=== PATIENT | male | born 1950 | race African-American/Black ===

== ENCOUNTER 2016-06-04 05:32 | Inpatient (IN) ==
[2016-05-16 14:00] LABS: Basophils % 0.4 % (0.0-0.8); Eosinophils # 0.2 10*3/uL (0.0-0.87); Hematocrit 42.5 VOL% (42.0-52.0); Hemoglobin 13.5 GM/DL (14.0-18.0); Immature Granulocytes % 0.1 %; Immature Granulocytes Absolute 0.01 #; Lymphocytes % 36.6 % (21.2-54.2); Mean Corpuscular HGB Conc 31.8 GM/DL (32-36); Mean Corpuscular Hemoglobin 27 PG (27-34); Mean Corpuscular Volume 85.7 FL (87-102); Mean Platelet Volume 11.2 FL (9.6-12.0); Monocytes # 0.8 10*3/uL (0.11-0.8); Monocytes % 9.7 % (1.7-12.7); Neutrophils # 4.2 10*3/uL (1.4-7.4); Neutrophils % 51.2 % (38.7-73.9); Platelet Count 162 T/CUMM (130-400); Red Blood Count 4.96 MC/CUMM (3.8-5.5); White Blood Count 8.2 T/CUMM (4-12)
[2016-05-16 14:05] LABS: Apearance,Urine CLEAR (Clear); Bilirubin,Urine Negative (Negative); Blood, Urine Negative (Negative); Glucose,Urine (UA) Negative (Negative); Ketones,Urine Negative (Negative); Nitrite,Urine Negative (Negative); Protein,Urine 100 MG/DL; RBC,Urine <1 /HPF (0-4); Urine Color Colorless (Yellow); Urine Specific Gravity 1.005 (1.001-1.035); Urine Urobilinogen < 2.0 EU/DL (0.2-1.0); WBC,Urine 1 /HPF (0-6)
[2016-05-16 14:11] LABS: INR 1.1; PT Patient Result 11.6 SECS; Partial Thromboplastin Time 25.2 SECS (0-40)
--- NOTE | 2016-05-16 14:18 | XRay Report ---
XR chest 2V Indication: Preop respiratory evaluation. Comparison: None. Technique: PA and lateral chest x-ray was performed. Findings: The heart size is within normal limits. AICD is stable. The mediastinal contour demonstrates no significant abnormality. The lungs are clear. Bones and soft tissues demonstrate no acute abnormality. Impression: 1. No active cardiopulmonary disease. 05/16/2016 2:16 PM PROCEDURE INTERPRETED AT [facility] DEPARTMENT OF RADIOLOGY Final Report Signed by: Dr. Flaquito Hebert
[2016-05-16 14:27] LABS: Albumin 3.6 G/DL (3.4-5.0); Bilirubin,Total 0.4 MG/DL (0.2-1.0); Calcium 9.5 MG/DL (8.5-10.1); Osmolality,Calculated 301.4 MOS/KG (273-304); Potassium 4.2 MMOL/L (3.5-5.1); Total Protein 6.4 G/DL (6.4-8.3)
[2016-06-04] MEDS ORDERED: VANCOMYCIN INJ 1,000 MG in SODIUM CHLORIDE 0.9% 250 ML IV ONE (06:00)
[2016-06-04] MEDS ORDERED: TRANEXAMIC ACID 1,000 MG/10 ML VIAL IV ONE (06:47)
--- NOTE | 2016-06-04 07:07 | History and Physical Update ---
History and Physical Update - History and Physical H&P was reviewed, the patient examined and there: are no changes in the patients condition since last H&P was completed.
[2016-06-04] MEDS ORDERED: DIAZEPAM 5 MG TABLET PO ONE (07:59)
[2016-06-04] MEDS ORDERED: FAMOTIDINE 20 MG TABLET PO ONE (08:00)
[2016-06-04] MEDS ORDERED: ceFAZolin 1,000 MG VIAL ONE (08:09)
[2016-06-04] MEDS ORDERED: VANCOMYCIN 1,000 MG VIAL ONE (08:09)
[2016-06-04] MEDS ORDERED: DIAZEPAM 5 MG TABLET ONE (08:10)
[2016-06-04] MEDS ORDERED: FAMOTIDINE 20 MG TABLET ONE (08:10)
[2016-06-04] MEDS ORDERED: SODIUM CHLORIDE 0.9% 100 ML IV ONE ×2 (08:10→13:15)
[2016-06-04] MEDS: LACTATED RINGERS 1,000 ML IV SCH (08:20)
[2016-06-04] MEDS ORDERED: PROPOFOL 200 MG/20 ML VIAL IV ONE (09:19)
[2016-06-04] MEDS ORDERED: LIDOCAINE 2% 5 ML VIAL ONE (09:19)
[2016-06-04] MEDS ORDERED: LABETALOL 100 MG/20 ML VIAL IV ONE (09:19)
[2016-06-04] MEDS ORDERED: hydrALAZINE 20 MG/1 ML VIAL ONE (09:19)
[2016-06-04] MEDS ORDERED: HYDROmorphone 2 MG/1 ML VIAL IV PRN (09:20)
[2016-06-04] MEDS ORDERED: LACTULOSE 20 GM/30 ML UDCUP PO PRN (09:20)
[2016-06-04] MEDS ORDERED: diphenhydrAMINE CAP 25 MG CAPSULE PO PRN (09:20)
[2016-06-04] MEDS ORDERED: TEMAZEPAM 7.5 MG CAPSULE PO PRN (09:20)
[2016-06-04] MEDS ORDERED: PROMETHAZINE 25 MG/1 ML VIAL IM PRN (09:20)
[2016-06-04] MEDS ORDERED: BISACODYL 10 MG SUPP RECTAL PRN (09:20)
[2016-06-04] MEDS ORDERED: MAGNESIUM HYDROXIDE SUSP 30 ML UDCUP PO PRN (09:20)
[2016-06-04] MEDS ORDERED: hydrALAZINE 25 MG TABLET PO PRN (09:23)
[2016-06-04] MEDS ORDERED: ROPIVACAINE 0.5% 30 ML VIAL ONE (09:46)
--- NOTE | 2016-06-04 12:36 | XRay Report ---
XR knee 2V LT Indication: Left TKA. Left knee 2 views: Straight leg splint, surgical drains, skin paresh and TKA hardware are present. Alignment is normal. No periprosthetic fracture. Impression: Normal alignment following TKA. PROCEDURE INTERPRETED AT [facility] DEPARTMENT OF RADIOLOGY Final Report Signed by: Fredy Olivera M.D.
[2016-06-04] MEDS ORDERED: KETAMINE 500 MG/10 ML VIAL ONE (13:13)
[2016-06-04] MEDS ORDERED: MIDAZOLAM 2 MG/2 ML VIAL ONE (13:13)
[2016-06-04] MEDS: HYDROmorphone PCA 30 MG/30 ML SYRINGE IV SCH (13:23)
--- NOTE | 2016-06-04 13:54 | Cardiology Consult Note ---
I, Luciana Chaves RN, am scribing for, and in the presence of, Jamal Wheeler MD 13:53. Assessment and Plan - Time spent with patient Time spent with patient: Greater than 30 minutes (due to assessment, planning, documentation, and medication review) (1) Hypertension Status: Chronic Current Visit: Yes (2) NICM (nonischemic cardiomyopathy) Status: Chronic Current Visit: Yes (3) CHF (congestive heart failure) Status: Chronic Current Visit: Yes (4) CRI (chronic renal insufficiency) Status: Chronic Current Visit: Yes (5) Dyslipidemia Status: Chronic Current Visit: Yes History of Present Illness - Data of Consult Patient: known to practice within the last 3 years Consult date: 06/04/16 Requesting Physician: Yg Fairchild Jr. - Consult Narrative Reason for consult: follow postop History of present illness: Mr. Arevalo is a 66 year old male who is routinely followed by Dr. Muñoz with a history of hypertension, nonischemic cardiomyopathy, congestive heart failure, chronic renal insufficiency, and dyslipidemia. His most recent heart cath was in January 2012 that showed mild nonobstructive coronary artery disease and severe cardiomyopathy which appeared to be nonischemic. He had a single- chamber ICD placed in January 2012. In June 2014 he had a stress test that was clinically and electrically negative. Other surgical history includes left knee scope, kidney biopsy, and thyroid surgery. Family history includes father with prostate problems and mother with hypertension. He reports that he does not smoke, but that he quit about 4 years ago. Patient was admitted today for left knee replacement with Dr. Gurinder Brandt. Dr. Muñoz saw Mr. Arevalo preoperatively on May 16 of this year was felt to be a low risk for the planned surgery. We are seeing the patient postoperatively. He denies any chest pain, shortness of breath, palpitations, or dizziness. His systolic blood pressures have been in the 90s today. His home medications have been restarted. I have discussed in detail the particulars of this case and I have examined the patient and reviewed the patient's chart both current and old. I was directly involved in the patient's evaluation and management and I completely agree with Luciana Chaves RN regarding this patient's evaluation and treatment plan. This patient is stable postoperatively we will follow serial EKGs. Continue management as you plan. CC: Yg Green, Jr., MD - Home Medications and Allergies Home Medications: Home Medications Medication Instructions Recorded Confirmed Type Ascorbic Acid [Vitamin C] 500 mg PO DAILY 05/16/16 06/04/16 History Aspirin [Ecotrin] 81 mg PO DAILY 05/16/16 06/04/16 History Carvedilol [Coreg] 25 mg PO BID 05/16/16 06/04/16 History Furosemide Tab [Lasix Tab] 40 mg PO DAILY 05/16/16 06/04/16 History Losartan [Cozaar] 100 mg PO DAILY 05/16/16 06/04/16 History Magnesium Chloride [Slow Mag] 64 mg PO DAILY 05/16/16 06/04/16 History Multivit-Min/FA/Lycopene/Lut 1 tablet PO DAILY 05/16/16 06/04/16 History [Centrum Silver Ultra Men's Tab] NIFEdipine XL TAB [Procardia Xl] 30 mg PO BEDTIME 05/16/16 06/04/16 History Simvastatin [Zocor] 20 mg PO BEDTIME 05/16/16 06/04/16 History Tamsulosin [Flomax] 0.4 mg PO DAILY 05/16/16 06/04/16 History hydrALAZINE TAB [Apresoline Tab] 25 mg PO BID PRN 05/16/16 05/16/16 History Allergies/Adverse Reactions: Allergies Allergy/AdvReac Type Severity Reaction Status Date / Time No Known Allergies Allergy Verified 05/16/16 13:06 - Constitutional Constitutional: Present: as per HPI - EENT Eyes: Present: blurry vision, requires corrective lense Ears: Absent: decreased hearing, tinnitus Nose, mouth and throat: Absent: epistaxis, headache(s), neck pain - Cardiovascular Cardiovascular: Absent: chest pain at rest, chest pain with activity, diaphoresis, dyspnea, dyspnea on exertion, edema, radiating jaw, neck or arm pain, lightheadedness, orthopnea, palpitations - Respiratory Respiratory: Present: cough. Absent: dyspnea, hemoptysis, dyspnea on exertion, wheezing - Gastrointestinal Gastrointestinal: Present: diarrhea. Absent: abdominal pain, constipation, hematemesis, hematochezia, melena, nausea, vomiting - Genitourinary Genitourinary: Absent: dysuria, hematuria - Musculoskeletal Musculoskeletal: Present: limited range of motion, muscle weakness - Neurological Neurological: Present: abnormal gait, frequent falls. Absent: abnormal speech, confusion, dizziness, headache(s), syncope - Psychiatric Psychiatric: Absent: anxiety, confusion, depression - Hematologic/Lymphatic Hematologic/Lymphatic: Absent: easy bleeding, easy bruising Medical,Surgical,& Family Hx - Medical History Cardio: History of: CHF, Hypertension (medication), Pacemaker (january 2012, single chamber ICD) Renal: History of: Renal Problems (kidney biopsy 12 years ago) - Surgical History Cardiac Surgeries: Sugical HX of: Cardiac Catheterization (2009 and 2011), Internal Defibrillator (01/15/12) HEENT Surgeries: Surgical HX of: Thyroid Surgery (right) Orthopedic Surgeries: Surgical HX of;: Total Knee Replacement (left 05/23) - Family History Family History: Reports;: Family Hypertension (mother), Additional Family History (father with prostate problems) - Social History Smoking Status: Former smoker (states he quit 4 years ago) Frequency of Alcohol Use: None Type of Drug Use: None Functional capacity: uses cane/walker Physical Examination Vital Signs Temp Pulse Resp BP Pulse Ox 97.8 F 50 L 16 177/104 99 06/04/16 07:43 06/04/16 07:43 06/04/16 07:43 06/04/16 07:43 06/04/16 07:43 General: Present: Appears Well, No Apparent Distress HEENT: Present: PERRL, Mucus Membranes Moist Neck: Present: Supple Neck, Midline Trachea, No JVD/HJR, No Bruit Cardiac: Present: Reg Rate and Rhythm, No Murmur Lungs: Present: Normal Breath Sounds, No Wheeze, Rales, Rhonchi. Absent: Oxygen Neuro: Absent: Essential Tremor Abdomen: Present: Soft, Active Bowel Sounds, Non-Tender. Absent: Distended Skin: Present: Clear Musculoskeletal: Present: Decreased Range of Motion, Pain in Joint Gait: Present: Poor Gait Extremities: Present: No Edema, Normal Upper Extr. Pulses, Normal Lower Extr. Pulses. Absent: Normal Gait Result/EKG - Labs CBC & BMP: 05/16/16 13:48 05/16/16 13:47 Labs: Laboratory Results - last 24 hr 06/04/16 06:15 Blood Type O POSITIVE Antibody Screen Negative Liam Sanchez Wesley, MD, personally performed the services described in this documentation, ascribed by Luciana Chaves RN in my presence, and it is both accurate and complete [id number] .
[2016-06-04] MEDS: ONDANSETRON 4 MG/2 ML VIAL IV PRN (15:55)
--- NOTE | 2016-06-04 16:36 | Operative Note ---
DATE: 06/04/2016 PREOPERATIVE DIAGNOSIS: Osteoarthritis, left knee. POSTOPERATIVE DIAGNOSIS: Osteoarthritis, left knee. OPERATIVE PROCEDURE: Total knee replacement, left ([place]) SURGEON: Yg Fairchild Jr., MD RAIL WASHER: Dr. Soto. ANESTHESIA: Spinal. INDICATIONS: A 66-year-old white male with longstanding and severe osteoarthritis to his left knee, he experiences for numbers of years. He has had numerous aspirations and injections. He is no burton tyler able to ambulate without severe pain and prompting his recent evaluation and decision to proceed with elective total knee. OPERATIVE PROCEDURE: The patient taken to the operating room and under spinal anesthetic positioned in the supine position, the left leg was positioned, prepped and draped in the usual sterile manner . He received Ancef and Vancomycin preoperatively. The limb was elevated, exsanguinated, and tourn iquet inflated to 300 mmHg. A midline incision made over the anterior aspect of the left knee, sharp ly dissected and carried down to the skin and subcutaneous tissue. A medial peripatellar arthrotomy was performed of the knee, revealing a very large effusion with large osteophytes spur complexes th roughout. He had a severe vagus deformity as well with lot of erosion to the lateral plateau. Intr amedullary alignment guide was used to make appropriate cuts about the distal femur and proximal tib ia. The femur sized to a 9 femur to a 7 because of the deformity of PS component was chosen of 7 mm in size. The patellar resurfaced with a 38-button. After removal of the trial components, the prim ag implants were cemented into place and it was irrigated and closed in standard fashion over two 1 /8 inch Hemovac drains, using a #1 Vicryl for the arthrotomy, 2-0 Vicryl for the subcutaneous layer, and paresh for skin. Tourniquet was deflated during wound closure at 54 minutes. He was transpor apolinar to the Recovery Room in stable condition. ESTIMATED BLOOD LOSS: Minimal. DRAINS: None. COUNTS: Correct.
[2016-06-04] MEDS: ceFAZolin 2,000 MG in PREMIX 1 EACH IV SCH (17:04)
--- NOTE | 2016-06-04 17:07 | Orthopedic Progress Note ---
Orthopedics - Subjective Interval history: Comfortable neurovascular intact discussed up in the Exam - Constitutional Vitals: Period Temp Pulse Resp BP Sys/Reyes Pulse Ox Last 24 Hr 97.2 F-97.8 F 50-142 16-22 122-177/81-104 94-100 Results - Labs CBC & BMP: 05/16/16 13:48 05/16/16 13:47
[2016-06-04] MEDS: CARVEDILOL 25 MG TABLET PO SCH (21:44)
[2016-06-04] MEDS: SIMVASTATIN 20 MG TABLET PO SCH (21:44)
[2016-06-04] MEDS: DOCUSATE SODIUM 100 MG CAPSULE PO SCH (21:44)
[2016-06-04] MEDS: FONDAPARINUX 2.5 MG/0.5 ML SYRINGE SUBCUT SCH (21:44)
[2016-06-05] MEDS: ceFAZolin 2,000 MG in PREMIX 1 EACH IV SCH (02:00)
[2016-06-05 05:27] LABS: Basophils % 0.2 % (0.0-0.8); Eosinophils # 0.2 10*3/uL (0.0-0.87); Eosinophils % 1.6 % (0.00-10.9); Hematocrit 32.9 VOL% (42.0-52.0); Hemoglobin 10.7 GM/DL (14.0-18.0); Immature Granulocytes % 0.4 %; Immature Granulocytes Absolute 0.04 #; Lymphocytes # 1.6 10*3/uL (1.4-4.0); Lymphocytes % 16.8 % (21.2-54.2); Mean Corpuscular HGB Conc 32.5 GM/DL (32-36); Mean Corpuscular Hemoglobin 28 PG (27-34); Mean Platelet Volume 11.2 FL (9.6-12.0); Monocytes # 0.8 10*3/uL (0.11-0.8); Monocytes % 9.1 % (1.7-12.7); Neutrophils # 6.7 10*3/uL (1.4-7.4); Neutrophils % 71.9 % (38.7-73.9); Red Blood Count 3.87 MC/CUMM (3.8-5.5); White Blood Count 9.3 T/CUMM (4-12)
[2016-06-05 05:34] LABS: Platelet Count 96 T/CUMM (130-400)
[2016-06-05 05:48] LABS: Hypochromasia 1+; Ovalocytes Slight; Platelet Estimate Decreased
[2016-06-05 06:04] LABS: Calcium 8.3 MG/DL (8.5-10.1); Potassium 4.5 MMOL/L (3.5-5.1)
--- NOTE | 2016-06-05 07:20 | EKG Report ---
Stationary ECG Study [facility] Test Date: 06/05/2016 7:18:51 AM Pat Name: MOHINI GLASS Department: Room: 315 Gender: M Rn Behavioral Health: KAUSHIK : 1950 Requested by: Gagan Wheeler Order Number: [id number] Zulay MD: GAGAN WHEELER Intervals [place] Rate: 84 P: 55 MA: 231 QRS: -32 QRSD: 105 T: 61 QT: 361 QTc: 402 Interpretive Statements SINUS RHYTHM WITH PROLONGED MA INTERVAL MARKED LEFT AXIS DEVIATION NON-SPECIFIC ST-T ABNORMALITIES Electronically Signed On 06-05-16 10:42:39 CDT by GAGAN WHEELER [email or web address]
--- NOTE | 2016-06-05 08:44 | Orthopedic Progress Note ---
Orthopedics - Subjective Interval history: Comfortable H&H stable neurovascular intact drain removed will start PT possibly home with home health this weekend will also explore rehab options Exam - Constitutional Vitals: Period Temp Pulse Resp BP Sys/Reyes Pulse Ox Last 24 Hr 96.8 F-99.3 F 54-142 16-22 122-179/77-103 92-100 Results - Labs CBC & BMP: 06/05/16 04:55 06/05/16 04:55
[2016-06-05] MEDS: ASCORBIC ACID 500 MG TABLET PO SCH (09:18)
[2016-06-05] MEDS: ASPIRIN EC 81 MG TABLET PO SCH (09:18)
[2016-06-05] MEDS: DOCUSATE SODIUM 100 MG CAPSULE PO SCH ×2 (09:18→21:34)
[2016-06-05] MEDS: CARVEDILOL 25 MG TABLET PO SCH ×2 (09:18→21:34)
[2016-06-05] MEDS: MAGNESIUM CHLORIDE 64 MG TABLET PO SCH (09:18)
[2016-06-05] MEDS: MULTIVITAMIN (CENTRUM) TABLET PO SCH (09:18)
[2016-06-05] MEDS: LOSARTAN 50 MG TABLET PO SCH (09:18)
[2016-06-05] MEDS: TAMSULOSIN 0.4 MG CAPSULE PO SCH (09:18)
[2016-06-05] MEDS: FUROSEMIDE 40 MG TABLET PO SCH (09:19)
[2016-06-05] MEDS: LACTATED RINGERS 1,000 ML IV SCH (09:31)
[2016-06-05] MEDS: HYDROmorphone PCA 30 MG/30 ML SYRINGE IV SCH (09:40)
[2016-06-05] MEDS: ONDANSETRON 4 MG/2 ML VIAL IV PRN (10:42)
--- NOTE | 2016-06-05 11:20 | Pathology Report from [facility] ---
ACCESSION # : [id number] PATIENT NAME : Mohini Arevalo ORDERING DR : MOHINI WHITESIDE JR, MD CLINICAL HX: LT knee osteoarthritis POST-OP DX: Same SPECIMEN INFO: Lt knee bone & tissue GROSS DESCRIPTION: The specimen is received in formalin labeled with the patient 's name and consists of multiple fragments of bone, cartilage and adipose tissue collectively measuring 17.9 x 20.2 cm. The articular surfaces are focally degenerative with cartilage lipping and osteophyte formation. An area of bony eburnation is present measuring up to 4.0 cm. A few chalky white areas are noted. Representaive sectoins submitted in one cassette following decalcifiatoin. DIAGNOSIS FOR MOHINI AREVALO: LEFT KNEE BONE AND TISSUE, TOTAL REPLACEMENT: Osteoarthritis. SERVICE DATE: 06/04/2016 REPORT DATE: 06/05/2016 PATHOLOGIST: Morgan Aquino M.D. [facility]
--- NOTE | 2016-06-05 14:26 | Cardiology Progress Note ---
Andie Sanchez April RN, am scribing for, and in the presence of, Jamal Wheeler MD 14:25. Assessment and Plan (1) Hypertension Status: Chronic Current Visit: Yes (2) NICM (nonischemic cardiomyopathy) Status: Chronic Current Visit: Yes (3) CHF (congestive heart failure) Status: Chronic Current Visit: Yes (4) CRI (chronic renal insufficiency) Status: Chronic Current Visit: Yes (5) Dyslipidemia Status: Chronic Current Visit: Yes Cardiology - PN: Subj Interval history: Mr. Arevalo is seen resting in bed in no acute distress. He is day 1 postop left total knee, dressing left knee dry and intact. He reports he had a good night, but this morning his knee is starting to bother him a little bit. He denies chest pain, shortness of breath, palpitations, or dizziness. His blood pressures continue to be elevated, pressure this morning was 149/89. EKG this morning with sinus rhythm with heart rate of 84. Patient is stable and doing well postoperatively. He is receiving physical therapy without problems. He denies anginal chest pain and is overall stable. His EKG shows no acute change and we are going to continue recovery as outlined. My disclaimer Exam (Progress Note) - Constitutional Vitals: Period Temp Pulse Resp BP Sys/Reyes Pulse Ox Last 24 Hr 96.8 F-99.3 F 54-142 16-22 122-179/77-103 92-100 General appearance: normal weight, no acute distress - Head Head exam: Absent: abrasion, hematoma - Eye Eye exam: Absent: periorbital swelling, laceration to eyelids - Neck Neck exam: Absent: tenderness - Respiratory Respiratory exam: Present: clear to auscultation bilaterally. Absent: accessory muscle use, chest wall tenderness - Cardiovascular Cardiovascular exam: Present: regular rate and rhythm - GI/Abdominal GI/Abdominal exam: Present: normal bowel sounds, soft. Absent: distended, tenderness - Extremities Exam Extremities exam: Present: edema (Trace noted to left lower extremity), other ( Dressing noted to left knee) - Neurological Exam Neurological exam: Present: alert, oriented X3 - Psychiatric Psychiatric exam: Present: normal affect, normal mood - Skin Skin exam: Present: warm, dry Result/EKG - Labs CBC & BMP: 06/05/16 04:55 06/05/16 04:55 Lab Results: I have reviewed the past 24 hour labs Labs: Laboratory Results - last 24 hr 06/05/16 06/05/16 04:55 04:55 WBC 9.3 RBC 3.87 Hgb 10.7 L Hct 32.9 L MCV 85.0 L MCH 28 MCHC 32.5 RDW 14.0 Plt Count 96 L MPV 11.2 Neut % (Auto) 71.9 Lymph % (Auto) 16.8 L Boundary % (Auto) 9.1 Eos % (Auto) 1.6 Baso % (Auto) 0.2 Neut # (Auto) 6.7 Lymph # (Auto) 1.6 Boundary # (Auto) 0.8 Eos # (Auto) 0.2 Baso # (Auto) 0.0 Immature Gran % 0.4 Nucleated RBC % 0.0 Immature Gran # 0.04 Nucleated RBCs # 0.00 Platelet Estimate Decreased Hypochromasia 1+ Ovalocytes Slight Morphology Comment Sodium 143 Potassium 4.5 Chloride 112 H Carbon Dioxide 23 Anion Gap 12.5 BUN 33 H Creatinine 2.90 H GFR Calculation 32 BUN/Creatinine Ratio 11.00 Glucose 106 Calculated Osmolality 291.0 Calcium 8.3 L - EKG EKG results: interpreted by me EKG shows: sinus rhythm I, Jamal Wheeler MD, personally performed the services described in this documentation, ascribed by Luciana Chaves RN in my presence, and it is both accurate and complete 425 .
[2016-06-05] MEDS: FONDAPARINUX 2.5 MG/0.5 ML SYRINGE SUBCUT SCH (21:34)
[2016-06-05] MEDS: SIMVASTATIN 20 MG TABLET PO SCH (21:34)
[2016-06-06 06:24] LABS: Basophils % 0.1 % (0.0-0.8); Eosinophils # 0.2 10*3/uL (0.0-0.87); Eosinophils % 1.6 % (0.00-10.9); Hematocrit 31.1 VOL% (42.0-52.0); Hemoglobin 9.7 GM/DL (14.0-18.0); Immature Granulocytes % 0.6 %; Immature Granulocytes Absolute 0.06 #; Lymphocytes # 1.9 10*3/uL (1.4-4.0); Lymphocytes % 18.4 % (21.2-54.2); Mean Corpuscular HGB Conc 31.2 GM/DL (32-36); Mean Corpuscular Hemoglobin 27 PG (27-34); Mean Corpuscular Volume 87.9 FL (87-102); Mean Platelet Volume 10.8 FL (9.6-12.0); Monocytes # 1.2 10*3/uL (0.11-0.8); Monocytes % 11.6 % (1.7-12.7); Neutrophils % 67.7 % (38.7-73.9); Red Blood Count 3.54 MC/CUMM (3.8-5.5); White Blood Count 10.3 T/CUMM (4-12)
[2016-06-06 06:29] LABS: Platelet Count 81 T/CUMM (130-400)
[2016-06-06 06:55] LABS: Burr Cells Slight; Elliptocytes Few; Eosinophils 2 % (0-10); Hypochromasia 1+; Lymphocytes 21 % (20-55); Platelet Estimate Decreased; Segmented Neutrophils 72 % (50-85); Total Cells Counted 100
--- NOTE | 2016-06-06 08:45 | Cardiology Progress Note ---
I, Luciana Chaves RN, am scribing for, and in the presence of, Jamal Wheeler MD 08:45. Assessment and Plan (1) Hypertension Status: Chronic Current Visit: Yes (2) NICM (nonischemic cardiomyopathy) Status: Chronic Current Visit: Yes (3) CHF (congestive heart failure) Status: Chronic Current Visit: Yes (4) CRI (chronic renal insufficiency) Status: Chronic Current Visit: Yes (5) Dyslipidemia Status: Chronic Current Visit: Yes Cardiology - PN: Subj Interval history: Mr. Arevalo is seen resting in bed in no acute distress. He is day 2 postop left total knee. Dressing noted to left knee, he is complaining of some left knee discomfort. He denies any chest pain, shortness of breath, palpitations, or dizziness. He did have a temp of 101.5 during the night, blood pressures 150/ 80. I have discussed in detail the particulars of this case and I have examined the patient and reviewed the patient's chart both current and old. I was directly involved in the patient's evaluation and management and I completely agree with Luciana Chaves RN regarding this patient's evaluation and treatment plan. Exam (Progress Note) - Constitutional Vitals: Period Temp Pulse Resp BP Sys/Reyes Pulse Ox Last 24 Hr 99.1 F-101.5 F 75-98 18-20 140-160/66-83 90-99 General appearance: no acute distress - Head Head exam: Absent: abrasion, hematoma - Eye Eye exam: Absent: periorbital swelling, laceration to eyelids - Respiratory Respiratory exam: Present: clear to auscultation bilaterally. Absent: accessory muscle use, chest wall tenderness - Cardiovascular Cardiovascular exam: Present: regular rate and rhythm - GI/Abdominal GI/Abdominal exam: Present: normal bowel sounds, soft. Absent: distended, tenderness - Extremities Exam Extremities exam: Present: other (Dressing noted to left knee). Absent: edema - Neurological Exam Neurological exam: Present: alert, oriented X3 - Psychiatric Psychiatric exam: Present: normal affect, normal mood - Skin Skin exam: Present: warm, dry Result/EKG - Labs CBC & BMP: 06/06/16 06:10 06/05/16 04:55 Lab Results: I have reviewed the past 24 hour labs Labs: Laboratory Results - last 24 hr 06/06/16 06:10 WBC 10.3 RBC 3.54 L Hgb 9.7 L Hct 31.1 L MCV 87.9 MCH 27 MCHC 31.2 L RDW 14.0 Plt Count 81 L MPV 10.8 Neut % (Auto) 67.7 Lymph % (Auto) 18.4 L Rush % (Auto) 11.6 Eos % (Auto) 1.6 Baso % (Auto) 0.1 Neut # (Auto) 7.0 Lymph # (Auto) 1.9 Rush # (Auto) 1.2 H Eos # (Auto) 0.2 Baso # (Auto) 0.0 Total Counted 100 Immature Gran % 0.6 Nucleated RBC % 0.0 Immature Gran # 0.06 Segmented Neutrophils 72 Lymphocytes 21 Monocytes 5 Eosinophils 2 Nucleated RBCs # 0.00 Platelet Estimate Decreased Hypochromasia 1+ Bernarda Cells Slight Elliptocytes Few Morphology Comment Liam Sanchez Wesley, MD, personally performed the services described in this documentation, ascribed by Luciana Chaves RN in my presence, and it is both accurate and complete 845 .
--- NOTE | 2016-06-06 08:58 | Physician Query Form ---
CLICK EDIT DOCUMENT TO SELECT QUERY ANSWER --> OK --> SIGN Monica Hebert RN, CCDS Certified Clinical Civil Preparedness Coordinator W) [phone] (f) [phone] [email or web address] PROVIDERS: Make your selection(s) from the choices in EACH section by typing an "x" and enter comments in the comment section. Please use your independent medical judgment in providing your response. This request does not imply that any particular answer is desired or expected. CLINICAL INDICATORS: (Providers should not edit this section) The medical record indicates that the patient was admitted for a knee replacement, history of "chronic renal insufficiency", creatinine of 2.90 on 30th and GFR of 32# on the 30th. As the attending MD can you please clarify the stage of the CKD? Clarify which of the following most accurately represents the patient's renal status: Chronic Kidney Disease Stages Source: National Kidney Disease Foundation ( ) Stage I (eGFR > or = 90) ( ) Stage II (eGFR 60 - 89) ( ) Stage III (eGFR 30 - 59) ( ) Stage IV (eGFR 15 - 29) ( ) Stage V (eGFR < 15 or dialysis) COMMENTS: Use of terms such as suspected, likely, or probable (associated with a specific diagnosis that is being evaluated, monitored, or treated as if it exists) are acceptable and can be restated in the discharge summary if not ruled out. MTDD
[2016-06-06] MEDS: DOCUSATE SODIUM 100 MG CAPSULE PO SCH ×2 (09:35→20:40)
[2016-06-06] MEDS: LOSARTAN 50 MG TABLET PO SCH (09:35)
[2016-06-06] MEDS: TAMSULOSIN 0.4 MG CAPSULE PO SCH (09:35)
[2016-06-06] MEDS: ASCORBIC ACID 500 MG TABLET PO SCH (09:35)
[2016-06-06] MEDS: MULTIVITAMIN (CENTRUM) TABLET PO SCH (09:35)
[2016-06-06] MEDS: MAGNESIUM CHLORIDE 64 MG TABLET PO SCH (09:35)
[2016-06-06] MEDS: ASPIRIN EC 81 MG TABLET PO SCH (09:35)
[2016-06-06] MEDS: FUROSEMIDE 40 MG TABLET PO SCH (09:36)
[2016-06-06] MEDS: CARVEDILOL 25 MG TABLET PO SCH ×2 (09:36→20:40)
--- NOTE | 2016-06-06 09:55 | Orthopedic Progress Note ---
Orthopedics - Subjective Interval history: H&H stable comfortable wound is dry discussed continue with PT home with home health most likely by Thursday Exam - Constitutional Vitals: Period Temp Pulse Resp BP Sys/Reyes Pulse Ox Last 24 Hr 97.4 F-101.5 F 75-103 18-20 119-160/66-83 90-99 Results - Labs CBC & BMP: 06/06/16 06:10 06/05/16 04:55
[2016-06-06] MEDS ORDERED: IBUPROFEN 400 MG TABLET PO PRN (15:40)
--- NOTE | 2016-06-06 15:43 | Orthopedic Progress Note ---
Orthopedics - Subjective Interval history: temp related to atelectasis, wound dry looks good, discussed is q1 hour, iboprofen Exam - Constitutional Vitals: Period Temp Pulse Resp BP Sys/Reyes Pulse Ox Last 24 Hr 97.4 F-101.5 F 75-103 18-20 119-160/66-83 90-99 Results - Labs CBC & BMP: 06/06/16 06:10 06/05/16 04:55
[2016-06-06] MEDS: SIMVASTATIN 20 MG TABLET PO SCH (20:40)
[2016-06-06] MEDS: FONDAPARINUX 2.5 MG/0.5 ML SYRINGE SUBCUT SCH (20:40)
[2016-06-06] MEDS: LACTATED RINGERS 1,000 ML IV SCH (20:49)
[2016-06-07] MEDS: oxyCODONE/ACETAMINOPHEN 5-325 MG TABLET PO PRN ×2 (00:07→09:33)
--- NOTE | 2016-06-07 08:20 | Orthopedic Progress Note ---
Orthopedics - Subjective Interval history: No temps through the night responded to pulmonary toilet. Continue with PT discussed. Wound still soft dry no erythema or induration Exam - Constitutional Vitals: Period Temp Pulse Resp BP Sys/Reyes Pulse Ox Last 24 Hr 97.3 F-102.3 F 82-100 16-20 108-150/54-81 90-98 Results - Labs CBC & BMP: 06/06/16 06:10 06/05/16 04:55
--- NOTE | 2016-06-07 08:25 | EKG Report ---
Stationary ECG Study [facility] Test Date: 06/07/2016 8:25:12 AM Pat Name: MOHINI GLASS Department: Room: 315 Gender: M Supervisor Clam Bed: BECKY : 1950 Requested by: Jamal Wheeler Order Number: [id number] Reading MD: MARCELLO LUCIA Intervals [place] Rate: 81 P: 55 LA: 211 QRS: 85 QRSD: 97 T: 56 QT: 353 QTc: 390 Interpretive Statements SINUS RHYTHM WITH PROLONGED LA INTERVAL Electronically Signed On 06-08-16 20:40:43 CDT by MARCELLO LUCIA [id number]
--- NOTE | 2016-06-07 08:34 | Cardiology Progress Note ---
Assessment and Plan (1) Hypertension Status: Chronic Assessment and plan: Blood pressures well controlled Current Visit: Yes (2) NICM (nonischemic cardiomyopathy) Status: Chronic Assessment and plan: No clinical evidence of active heart failure currently. He is dyspneic I think related to his recent surgery and attempting to move about in the bed. Can increase his activity as tolerated. I am going to review a chest x-ray. Current Visit: Yes (3) CHF (congestive heart failure) Status: Chronic Current Visit: Yes (4) CRI (chronic renal insufficiency) Status: Chronic Current Visit: Yes (5) Dyslipidemia Status: Chronic Current Visit: Yes Cardiology - PN: Subj Interval history: This is a 66-year-old man who has a history of cardiomyopathy who is undergone now left knee replacement. He is recovering without consequences currently. He has an ICD and has been stable from a cardiac standpoint. He has increasing dyspnea which is I think more related to work of breathing with trying to maneuver with a new surgery on his left leg and has had low-grade temp and we will check his chest x-ray today. His vital signs have been stable. Exam (Progress Note) - Constitutional Vitals: Period Temp Pulse Resp BP Sys/Reyes Pulse Ox Last 24 Hr 97.3 F-102.3 F 82-100 16-20 108-150/54-81 90-98 Exam: General:no acute distress. alert and oriented, mood and affect are normal HEENT: no new lesions, sclerae are clear, mouth and pharynx benign Neck: supple, trachea midline, no JVD noted Lungs: no rales ronchi or wheeze is noted. pt comfortable without accesory muscle use to assist with breathing CV: RRR no murmur rub or gallop is noted. Abd: soft and nontender, BSNA, no masses. Ext: no cyanosis, clubbing or edema Neuro: grossly intact without focal neurologic deficit. Result/EKG - Labs CBC & BMP: 06/06/16 06:10 06/05/16 04:55
[2016-06-07] MEDS: MULTIVITAMIN (CENTRUM) TABLET PO SCH (09:36)
[2016-06-07] MEDS: ASPIRIN EC 81 MG TABLET PO SCH (09:36)
[2016-06-07] MEDS: MAGNESIUM CHLORIDE 64 MG TABLET PO SCH (09:37)
[2016-06-07] MEDS: LOSARTAN 50 MG TABLET PO SCH (09:37)
[2016-06-07] MEDS: FUROSEMIDE 40 MG TABLET PO SCH (09:37)
[2016-06-07] MEDS: CARVEDILOL 25 MG TABLET PO SCH ×2 (09:37→22:08)
[2016-06-07] MEDS: ASCORBIC ACID 500 MG TABLET PO SCH (09:38)
[2016-06-07] MEDS: TAMSULOSIN 0.4 MG CAPSULE PO SCH (09:38)
[2016-06-07] MEDS: DOCUSATE SODIUM 100 MG CAPSULE PO SCH ×2 (09:39→22:08)
--- NOTE | 2016-06-07 10:38 | XRay Report ---
Exam: XR chest 2V Date: 06/07/2016 8:37 AM Indication: Shortness of breath dyspnea Comparison: 05/16/2016 Technical: PA lateral Findings: Mild cardiomegaly with a cardiac pacing device with defibrillator from a left-sided approach with right ventricular lead. The bony structures reveal mild degenerative change. The mediastinum is intact. No pneumothorax. Adjacent ribs are intact. Impression: 1. Stable appearance of the cardiac plantable defibrillator pacing device with mild cardiac enlargement without decompensation PROCEDURE INTERPRETED AT [facility] DEPARTMENT OF RADIOLOGY Final Report Signed by: Dr. oJhn Jain
--- NOTE | 2016-06-07 12:04 | EKG Report ---
Stationary ECG Study [facility] Test Date: 06/06/2016 8:03:40 AM Pat Name: MOHINI GLASS Department: Room: 315 Gender: M Horticultural Nursery Assistant: KAUSHIK : 1950 Requested by: Jamal Wheeler Order Number: [id number] Reading MD: MARCELLO LUCIA Intervals [place] Rate: 90 P: 999 [place]: 0 QRS: -12 QRSD: 101 T: 69 QT: 357 QTc: 404 Interpretive Statements Sinus rhythm with 1AVB Poor R wave progression Electronically Signed On 06-08-16 20:31:52 CDT by MARCELLO LUCIA [email or web address]
[2016-06-07] MEDS ORDERED: NAPROXEN 500 MG TABLET PO PRN ×2 (20:46→21:37)
--- NOTE | 2016-06-07 21:52 | XRay Report ---
Exam: XR chest 1V portable Date: 06/07/2016 8:48 PM Indication: Shortness of breath dyspnea Comparison: 9:50 AM same date Technical: AP Findings: Left-sided cardiac pacing device with right ventricular defibrillator lead present. Mild degenerative change present along the AC joints. The heart is mildly prominent. Findings suggest some mild interstitial thickening in the retrocardiac region left base. Mediastinum is unremarkable. Bony structures reveal no acute findings. No pneumothorax or effusions. Impression: 1. Minimal atelectatic change present in the left base 2. Mild cardiomegaly without decompensation with stable appearance of the cardiac pacing defibrillator device with a right ventricular lead. PROCEDURE INTERPRETED AT [facility] DEPARTMENT OF RADIOLOGY Final Report Signed by: Dr. John Jain
[2016-06-07] MEDS: SIMVASTATIN 20 MG TABLET PO SCH (22:08)
[2016-06-07] MEDS: FONDAPARINUX 2.5 MG/0.5 ML SYRINGE SUBCUT SCH (22:08)
[2016-06-07] MEDS: ceFAZolin 2,000 MG in PREMIX 1 EACH IV SCH (22:35)
[2016-06-08] MEDS: ceFAZolin 2,000 MG in PREMIX 1 EACH IV SCH ×3 (05:53→22:43)
--- NOTE | 2016-06-08 09:12 | Orthopedic Progress Note ---
Orthopedics - Subjective Interval history: Temp of 102 last night cultures of blood and urine were obtained started back on Ancef chest x-ray revealing atelectasis as suspected. Left base. Discussed progressing better this a.m. with PT currently afebrile wound is dry no clinical sign of a wound problem or infection. Continue PT supportive measures. Exam - Constitutional Vitals: Period Temp Pulse Resp BP Sys/Reyes Pulse Ox Last 24 Hr 97.5 F-102.3 F 79-116 16-21 110-168/57-82 91-96 Results - Labs CBC & BMP: 06/06/16 06:10 06/05/16 04:55
--- NOTE | 2016-06-08 10:00 | Cardiology Progress Note ---
Assessment and Plan (1) Hypertension Status: Chronic Assessment and plan: Blood pressures well controlled Current Visit: Yes (2) NICM (nonischemic cardiomyopathy) Status: Chronic Assessment and plan: No clinical evidence of active heart failure currently. He is dyspneic I think related to his recent surgery and attempting to move about in the bed. Can increase his activity as tolerated. I am going to review a chest x-ray. Current Visit: Yes (3) CHF (congestive heart failure) Status: Chronic Current Visit: Yes (4) CRI (chronic renal insufficiency) Status: Chronic Current Visit: Yes (5) Dyslipidemia Status: Chronic Current Visit: Yes Cardiology - PN: Subj Interval history: Orthopnea PND or edema. His surgery is healing and he feels better today. Patient is stable doing well this morning without significant problems. He denies complaints related to shortness of breath Exam (Progress Note) - Constitutional Vitals: Period Temp Pulse Resp BP Sys/Reyes Pulse Ox Last 24 Hr 97.5 F-102.3 F 79-116 16-21 110-168/57-82 91-96 Exam: General:no acute distress. alert and oriented, mood and affect are normal HEENT: no new lesions, sclerae are clear, mouth and pharynx benign Neck: supple, trachea midline, no JVD noted Lungs: no rales ronchi or wheeze is noted. pt comfortable without accesory muscle use to assist with breathing CV: RRR no murmur rub or gallop is noted. Abd: soft and nontender, BSNA, no masses. Ext: no cyanosis, clubbing or edema. Surgical dressings intact Neuro: grossly intact without focal neurologic deficit. Result/EKG - Labs CBC & BMP: 06/06/16 06:10 06/05/16 04:55
[2016-06-08] MEDS: ASCORBIC ACID 500 MG TABLET PO SCH (10:01)
[2016-06-08] MEDS: CARVEDILOL 25 MG TABLET PO SCH ×2 (10:01→20:29)
[2016-06-08] MEDS: TAMSULOSIN 0.4 MG CAPSULE PO SCH (10:01)
[2016-06-08] MEDS: LOSARTAN 50 MG TABLET PO SCH (10:01)
[2016-06-08] MEDS: MAGNESIUM CHLORIDE 64 MG TABLET PO SCH (10:01)
[2016-06-08] MEDS: ASPIRIN EC 81 MG TABLET PO SCH (10:01)
[2016-06-08] MEDS: DOCUSATE SODIUM 100 MG CAPSULE PO SCH ×2 (10:01→20:29)
[2016-06-08] MEDS: MULTIVITAMIN (CENTRUM) TABLET PO SCH (10:02)
[2016-06-08] MEDS: FUROSEMIDE 40 MG TABLET PO SCH (10:04)
[2016-06-08] MEDS: oxyCODONE/ACETAMINOPHEN 5-325 MG TABLET PO PRN ×2 (15:00→23:25)
[2016-06-08] MEDS: SIMVASTATIN 20 MG TABLET PO SCH (20:29)
[2016-06-08] MEDS: FONDAPARINUX 2.5 MG/0.5 ML SYRINGE SUBCUT SCH (20:29)
[2016-06-09] MEDS: oxyCODONE/ACETAMINOPHEN 5-325 MG TABLET PO PRN (05:40)
[2016-06-09] MEDS: ceFAZolin 2,000 MG in PREMIX 1 EACH IV SCH (06:38)
--- NOTE | 2016-06-09 07:39 | Orthopedic Progress Note ---
Orthopedics - Subjective Interval history: Afebrile. Comfortable. Wound okay. Discussed. Likely to rehab today or tomorrow will need formal inpatient PT to progress efficiently. Exam - Constitutional Vitals: Period Temp Pulse Resp BP Sys/Reyes Pulse Ox Last 24 Hr 98.5 F-99.9 F 79-100 16-20 110-131/63-76 91-97 Results - Labs CBC & BMP: 06/06/16 06:10 06/05/16 04:55
--- NOTE | 2016-06-09 07:42 | Discharge Summary ---
Hospital Course - Hospital Course Hospital Course: Admitted for elective left total knee uncomplicated course did have temp spike secondary to atelectasis cultured to have been negative. Currently afebrile needing rehab placement Diagnosis - Discharge Diagnosis (1) Osteoarthritis of left knee Status: Acute Discharge Plan - Discharge Data Disposition: Swing Bed, Hos Based, [facility] Condition at Discharge: Stable Discharge Diet: advance to your usual diet Activity: ambulate only with your walker, as per physical therapy, increase activity as tolerated Hygiene: may shower, keep area(s) dry Weight Bearing at Discharge: weight bear as tolerated - Discharge Medications New HYDROcodone/ACETAMIN 7.5-325 [Ulmer 7.5-325] 2 tablet PO Q4H PRN #30 tablet PRN Reason: Moderate Pain unrelieved by 1 Fondaparinux [Arixtra] 2.5 mg SUBCUT Q24H syringe Continue Magnesium Chloride [Slow Mag] 64 mg PO DAILY Ascorbic Acid [Vitamin C] 500 mg PO DAILY NIFEdipine XL TAB [Procardia Xl] 30 mg PO BEDTIME Simvastatin [Zocor] 20 mg PO BEDTIME Furosemide Tab [Lasix Tab] 40 mg PO DAILY hydrALAZINE TAB [Apresoline Tab] 25 mg PO BID PRN PRN Reason: Blood Pressure-Increased Losartan [Cozaar] 100 mg PO DAILY Tamsulosin [Flomax] 0.4 mg PO DAILY Multivit-Min/FA/Lycopene/Lut [Centrum Silver Ultra Men's Tab] 1 tablet PO DAILY Aspirin [Ecotrin] 81 mg PO DAILY Carvedilol [Coreg] 25 mg PO BID - Follow Up or Referral - Forms/Instructions Additional Discharge Instructions: Discharge to swing bed/rehab. Continue home medications Ulmer for pain Arixtra 14 days and aspirin only. Weight-bear as tolerated with CPM and walker/ paresh to be removed and wound Steri-Stripped June 20. Follow-up 4 weeks Exam - Constitutional Vitals: Period Temp Pulse Resp BP Sys/Reyes Pulse Ox Last 24 Hr 98.5 F-99.9 F 79-100 16-20 110-131/63-76 91-97 Discharge Results Procedures and tests throughout hospitalization: Pending Orders 06/07/16 22:05 Blood Culture Routine 06/08/16 01:00 Urine Culture Routine Labs on day of discharge: Preliminary micro results at discharge 06/07/16 22:05 Blood Culture - Preliminary Blood No growth at 1 day 06/07/16 22:05 Blood Culture - Preliminary Blood No growth at 1 day DS: Provider Date of admission: 06/04/16 05:32 Primary care physician: iZ Krishna DO Attending physician on admission: Yg Fairchild Jr., MD Consults: 06/04/16 09:21 Consult to Case Mgmt/Social Srvs [CONS] Routine Reason for Case Mgmt/Social Srvs: Rehab Home Health Equipment Consult Comment: CPM Machine was delivered to Pt, 6ft 2in 200lbs, in room 315 Consult to Occupational Therapy [CONS] Routine Reason for Occupational Therapy: Evaluate and Treat Consult Comment: ADL's Consult to Physical Therapy [CONS] Routine Reason for Physical Therapy: Evaluate and Treat Gait Training 06/04/16 09:23 Consult to Physician [CONS] Routine Comment: Consulting Provider: Shlomo Muñoz Consulting Provider Notified: Yes When should Consulting Provider be notified: Now Person Notified: yoko gongora Date Notified: 06/04/16 Time Notified: 13:08 06/04/16 12:48 Consult to Pharmacy [CONS] Routine Reason for Pharmacy Consult: Adjust Meds Renal Funct 06/04/16 13:07 Consult to Pastoral Services [CONS] Routine Comment: Pastoral Screen: Request Rn Cardiovascular Visit Pastoral Screen Source of Request: Patient Discharging clinician: Yg Fairchild Jr., MD
[2016-06-09] MEDS: DOCUSATE SODIUM 100 MG CAPSULE PO SCH (09:51)
[2016-06-09] MEDS: MULTIVITAMIN (CENTRUM) TABLET PO SCH (09:51)
[2016-06-09] MEDS: LOSARTAN 50 MG TABLET PO SCH (09:51)
[2016-06-09] MEDS: ASPIRIN EC 81 MG TABLET PO SCH (09:51)
[2016-06-09] MEDS: CARVEDILOL 25 MG TABLET PO SCH (09:51)
[2016-06-09] MEDS: TAMSULOSIN 0.4 MG CAPSULE PO SCH (09:52)
[2016-06-09] MEDS: FUROSEMIDE 40 MG TABLET PO SCH (09:52)
[2016-06-09] MEDS: MAGNESIUM CHLORIDE 64 MG TABLET PO SCH (09:52)
[2016-06-09] MEDS: ASCORBIC ACID 500 MG TABLET PO SCH (09:52)
[2016-06-09 13:47] VITALS: BP 127/75
--- NOTE | 2016-06-12 06:52 | Physician Query Form ---
CLICK EDIT DOCUMENT TO SELECT QUERY ANSWER --> OK --> SIGN Monica Hebert RN, CCDS Certified Clinical Production Packager W) [phone] (f) [phone] [email or web address] PROVIDERS: Make your selection(s) from the choices in EACH section by typing an "x" and enter comments in the comment section. Please use your independent medical judgment in providing your response. This request does not imply that any particular answer is desired or expected. CLINICAL INDICATORS: (Providers should not edit this section) The medical record indicates that the patient was admitted for a knee replacement, NICM, CHF (chronic) and the patient is on Po Lasix.--No ECHO was seen- Please provide further specificity regarding CHF. TYPE: (x) Systolic ( ) Diastolic ( ) Combined Systolic/Diastolic ( ) Other, please specify: ( ) Clinically unable to determine ( ) The patient does NOT have CHF COMMENTS: Use of terms such as suspected, likely, or probable (associated with a specific diagnosis that is being evaluated, monitored, or treated as if it exists) are acceptable and can be restated in the discharge summary if not ruled out. MTDD
== END 2016-06-09 14:00 | disposition swing bed (61) | DRG 470 ==
LOC: OBSVTOIN 05:32 → N.SDSINP 05:32 → INTOOBSV 05:32 → N.3E 12:38
PROVIDERS: ADMIT Orthopaedic Surgery; ATTEND Orthopaedic Surgery

== ENCOUNTER 2016-10-05 20:47 | Inpatient (IN) ==
[2016-10-05] MEDS ORDERED: methylPREDNISolone SOD SUC 125 MG/2 ML VIAL IV STA (21:07)
[2016-10-05] MEDS ORDERED: NITROGLYCERIN 2% OINT 1 INCH/GM PACK TOP STA (21:07)
[2016-10-05] MEDS ORDERED: FUROSEMIDE 100 MG/10 ML VIAL IV STA (21:07)
[2016-10-05 21:20] LABS: Basophils % 0.4 % (0.0-0.8); Eosinophils # 0.2 10*3/uL (0.0-0.87); Eosinophils % 3.7 % (0.00-10.9); Hematocrit 38.5 VOL% (42.0-52.0); Hemoglobin 12.5 GM/DL (14.0-18.0); Immature Granulocytes % 0.2 %; Immature Granulocytes Absolute 0.01 #; Lymphocytes # 2.4 10*3/uL (1.4-4.0); Lymphocytes % 44.8 % (21.2-54.2); Mean Corpuscular HGB Conc 32.5 GM/DL (32-36); Mean Corpuscular Hemoglobin 28 PG (27-34); Mean Corpuscular Volume 85.4 FL (87-102); Mean Platelet Volume 11.6 FL (9.6-12.0); Monocytes # 0.5 10*3/uL (0.11-0.8); Monocytes % 9.2 % (1.7-12.7); Neutrophils # 2.2 10*3/uL (1.4-7.4); Neutrophils % 41.7 % (38.7-73.9); Platelet Count 138 T/CUMM (130-400); Red Blood Count 4.51 MC/CUMM (3.8-5.5); Red Cell Distribution Width 14.4 % (9.3-17.3); White Blood Count 5.3 T/CUMM (4-12)
[2016-10-05] MEDS ORDERED: ALBUTEROL 2.5 MG/3 ML NEB RESP TX SCH (21:30)
--- NOTE | 2016-10-05 21:39 | Emergency Department Note ---
Julio Sanchez Mantricia, am scribing for, and in the presence of, Cirilo Carrasco MD 21:12. Luna Sanchez Charles R, MD, personally performed the services described in this documentation, ascribed by Radha Kim in my presence, and it is both accurate and complete 139 . Arrival - Arrival Chief Complaint: Shortness of Breath Stated Complaint: SOB ED Nursing Triage Note: pt presented to triage with c/o SOB x 1 wk. pt seen in clinic By ruslan CROCKER 10/01/16 for same symptoms and saw Dr Muñoz for pacemaker check. pt states SOB worse tonight. Mode of Arrival: Ambulatory Limitations: No Limitations Source: Patient - History of Present Illness HPI Narrative: Pt is a 66 y/o black male ambulating to ED with c/o SOB that onset a week ago. Pt reports that he was seen by Ruslan Nunez on 10/01 for similar sxs and was seen by Dr. Muñoz on 10/03 for pacemaker check. He states that the SOB is worsened when laying down. He denies any chest pain. Pt currently takes a daily aspirin but states that he has not taken one today. Pt has a PMHx of HTN and kidney failure. At time of exam, pt's heart rate is 37 and has a blood pressure of 178/103. No other complaints were reported to ED. Onset (ago): week(s) Consistency: constant Severity: mild Allergies/Adverse Reactions: Allergies Allergy/AdvReac Type Severity Reaction Status Date / Time No Known Allergies Allergy Verified 05/16/16 13:06 Home Medications: Home Medications Medication Instructions Recorded Confirmed Type Ascorbic Acid [Vitamin C] 500 mg PO DAILY 05/16/16 09/01/16 History Carvedilol [Coreg] 25 mg PO BID 05/16/16 09/01/16 History Furosemide Tab [Lasix Tab] 40 mg PO DAILY 05/16/16 09/01/16 History Multivit-Min/FA/Lycopen/Lutein 1 tablet PO DAILY 05/16/16 09/01/16 History [Centrum Silver Ultra Men's Tab] NIFEdipine XL TAB [Procardia Xl] 30 mg PO BEDTIME 05/16/16 09/01/16 History Simvastatin [Zocor] 20 mg PO BEDTIME 05/16/16 09/01/16 History Tamsulosin [Flomax] 0.4 mg PO DAILY 05/16/16 09/01/16 History hydrALAZINE TAB [Apresoline Tab] 25 mg PO BID 05/16/16 09/01/16 History Colchicine [Colcrys] 0.6 mg PO BID PRN #30 tablet 06/20/16 09/01/16 Rx Aspirin Chew Tab 81 mg PO DAILY 09/01/16 09/01/16 History Furosemide Tab [Lasix Tab] 40 mg PO BID #60 tablet 09/01/16 Rx Levofloxacin Tab [Levaquin Tab] 500 mg PO DAILY #10 tablet 09/01/16 Rx Losartan Potassium 100 mg PO DAILY 09/01/16 09/01/16 History Review of System - Review of System 12 point system: reviewed and no additional remarkable complaints except as stated - Review of System Constitutional: Absent: chills, diaphoresis, fever Eyes: Absent: pain Head/Ears/Nose/Throat: Absent: earache Respiratory: Present: other (SOB). Absent: cough Cardiovascular: Absent: chest pain Gastrointestinal: Absent: abdominal pain, nausea, vomiting, diarrhea Musculoskeletal: Absent: arm pain, back pain, leg pain, neck pain Medical,Surgical,& Family Hx - Medical History Cardio: History of: CHF, Hypertension (medication), Pacemaker (january 2012, single chamber ICD) Psychological: No history of: Previous Suicide Attempt Neurology: No history of: Seizures HEENT: History of: Dental Problems (partial upper) Renal: History of: Renal Failure (Chronic renal failure), Renal Problems ( kidney biopsy 12 years ago) - Surgical History Cardiac Surgeries: Sugical HX of: Cardiac Catheterization (2009 and 2011), Internal Defibrillator (01/15/12) HEENT Surgeries: Surgical HX of: Thyroid Surgery (right) Orthopedic Surgeries: Surgical HX of;: Total Knee Replacement (left 05/23) - Family History Family History: Reports;: Family Hypertension (mother) - Social History Smoking Status: Former smoker Frequency of Alcohol Use: None Type of Drug Use: None Exam Vital Signs: Vital Signs Temperature 97.9 F 10/05/16 21:24 Pulse Rate 37 L 10/05/16 21:24 Respiratory Rate 22 10/05/16 21:24 Blood Pressure 153/113 10/05/16 21:24 O2 Sat by Pulse Oximetry 94 L 10/05/16 21:24 - General General appearance: alert, in no apparent distress - Head Head exam: Present: atraumatic, normocephalic, normal inspection - Eye Eye exam: Present: normal appearance, PERRL, EOMI - ENT ENT exam: Present: normal exam, normal oropharynx, mucous membranes moist, TM's normal bilaterally, normal external ear exam - Neck Neck exam: Present: normal inspection, full ROM, trachea midline. Absent: tenderness - Chest Chest inspection: Present: normal inspection, symmetric chest wall rise. Absent : tenderness - Respiratory Respiratory exam: Present: rales (bilateral) - Cardiovascular Cardiovascular exam: Present: normal rhythm, bradycardia (but speeds up), normal heart sounds - Abdominal Exam Abdominal exam: Present: soft, normal bowel sounds. Absent: distention, tenderness, guarding, rebound - Extremities Exam Extremities exam: Present: full ROM, normal capillary refill, other (+1 LE edema bilat). Absent: tenderness - Back Exam Back exam: Present: normal inspection, full ROM. Absent: tenderness - Neurological Exam Neurological exam: Present: alert, oriented X3, CN II-XII intact, normal gait, reflexes normal - Psychiatric Psychiatric exam: Present: normal affect, normal mood - Skin Skin exam: Present: warm, dry, intact, normal color Course - Consultations Consultation #1: Hospitalist will admit patient Time: 22:41 Results - Labs CBC & BMP: 10/05/16 20:50 10/05/16 20:50 Lab Results: I have reviewed the patients labs Critical Care Time Critical Care Time: Yes Total Critical Care Time: 60 Disposition Clinical Impression: CHF (congestive heart failure), CRI (chronic renal insufficiency), NICM ( nonischemic cardiomyopathy), Hypertension, Acute dyspnea, Bradycardia Case discussed with: patient, patient's family Disposition: Still a Patient Condition: Guarded Time of Disposition: 22:44
[2016-10-05 21:40] LABS: Albumin 3.4 G/DL (3.4-5.0); Bilirubin,Total 0.4 MG/DL (0.2-1.0); Calcium 9.3 MG/DL (8.5-10.1); Magnesium 2.4 MG/DL (1.8-2.4); Potassium 4.3 MMOL/L (3.5-5.1); Total Protein 7.2 G/DL (6.4-8.3)
[2016-10-05 21:50] LABS: Troponin I Only 0.165 NG/ML (0.00-0.045)
[2016-10-05 22:34] LABS: Apearance,Urine CLEAR (Clear); Bilirubin,Urine Negative (Negative); Blood, Urine Negative (Negative); Glucose,Urine (UA) Negative (Negative); Ketones,Urine Negative (Negative); Nitrite,Urine Negative (Negative); Protein,Urine 100 MG/DL; RBC,Urine <1 /HPF (0-4); Urine Color Yellow (Yellow); Urine Specific Gravity 1.009 (1.001-1.035); Urine Urobilinogen < 2.0 EU/DL (0.2-1.0); WBC,Urine 1 /HPF (0-6)
[2016-10-05] MEDS ORDERED: ATROPINE 1 MG/10 ML SYRINGE IV STA (22:43)
[2016-10-05 22:45] LABS: Barbiturates Screen,Urine Negative (Negative); Benzodiazepines Screen,Urine Negative (Negative); Cannabinoid Screen,Urine Negative (Negative); Opiate Screen,Urine Negative (Negative); Phencyclidine Screen,Urine Negative (Negative)
[2016-10-05] MEDS ORDERED: HEPARIN 1,000 UNIT/1 ML VIAL IV STA (22:45)
[2016-10-05] MEDS ORDERED: FUROSEMIDE 40 MG/4 ML VIAL ONE (22:46)
[2016-10-05] MEDS ORDERED: methylPREDNISolone SOD SUC 125 MG/2 ML VIAL ONE (22:47)
[2016-10-05] MEDS ORDERED: HEPARIN 5,000 UNIT/1 ML VIAL ONE (22:47)
[2016-10-05] MEDS ORDERED: HEPARIN DRIP 25,000 UNITS/500 ML PREMIX IV ONE (22:47)
[2016-10-05] MEDS ORDERED: FUROSEMIDE 20 MG/2 ML VIAL ONE (22:47)
[2016-10-05] MEDS ORDERED: ATROPINE 1 MG/1 ML VIAL ONE (22:47)
[2016-10-05] MEDS: HEPARIN DRIP 25,000 UNITS/500 ML PREMIX IV SCH (23:23)
[2016-10-05] MEDS ORDERED: ONDANSETRON 4 MG/2 ML VIAL IV PRN (23:27)
[2016-10-05] MEDS ORDERED: ALBUTEROL 2.5 MG/3 ML NEB RESP TX PRN (23:27)
[2016-10-05] MEDS ORDERED: MAGNESIUM SULF RIDER 4 GM in PREMIX 1 EACH IV PRN (23:27)
[2016-10-05] MEDS ORDERED: MAGNESIUM SULF RIDER 2 GM in PREMIX 1 EACH IV PRN (23:27)
--- NOTE | 2016-10-05 23:49 | Hospitalist History & Physical ---
Assessment and Plan (1) Acute dyspnea Status: Acute Current Visit: Yes (2) Bradycardia Status: Acute Current Visit: Yes (3) CHF (congestive heart failure) Status: Chronic Current Visit: Yes (4) CRI (chronic renal insufficiency) Status: Chronic Current Visit: Yes (5) Hypertension Status: Chronic Current Visit: Yes (6) NICM (nonischemic cardiomyopathy) Status: Chronic Current Visit: Yes (7) Dyslipidemia Status: Chronic Assessment and plan: Our plan for this patient will be admitting him to CCU. Will consult [facility]ology for their evaluation. He normally sees Dr. Shlomo Muñoz. We will diurese him. Since there is the possibility of a PE. We will order a VQ scan for in the morning. Patient cannot have a CT PE protocol. Really do not understand why his pacemaker did not kick in when his heart rate was in the 30s. Will reevaluate patient in the morning and adjust plans appropriate. Current Visit: No History of Present Illness Chief complaint: Shortness of breath History of present illness: Mr. Arevalo is a 66 year old male with past medical history of congestive heart failure, hypertension and pacemaker defibrillator placement who is in his normal state of health until approximately 1 week ago. Patient reports shortness of breath 1 week. He went to see Mirian Everett nurse practitioner at [facility] and was told that he had congestive heart failure. This is consistent with his history and he is on chronic Lasix therapy. He said he really did not get any better. They increase his Lasix a little bit. In our hospital E ER he was noted is being significantly bradycardic. He was in the 30s. He received some atropine. And his rate came on up. Patient has a history of chronic kidney disease chronic kidney disease and seems to be at his baseline. Patient does have some elevated troponins consistent with previous lab draws. I was consulted for admission. He did have elevated d-dimer. He is chest x-ray appears pretty clear he does have elevated BNP. ER started him on a heparin infusion for possible PE. I was was consulted to admit him. We will get a VQ scan in the morning. Secondary to his significant bradycardia will need CCU admission. Home Medications Medication Instructions Recorded Confirmed Type Ascorbic Acid [Vitamin C] 500 mg PO DAILY 05/16/16 10/05/16 History Carvedilol [Coreg] 25 mg PO BID 05/16/16 10/05/16 History Furosemide Tab [Lasix Tab] 40 mg PO DAILY 05/16/16 10/05/16 History Multivit-Min/FA/Lycopen/Lutein 1 tablet PO DAILY 05/16/16 10/05/16 History [Centrum Silver Ultra Men's Tab] NIFEdipine XL TAB [Procardia Xl] 30 mg PO BEDTIME 05/16/16 10/05/16 History Simvastatin [Zocor] 20 mg PO BEDTIME 05/16/16 10/05/16 History Tamsulosin [Flomax] 0.4 mg PO DAILY 05/16/16 09/01/16 History Aspirin Chew Tab 81 mg PO DAILY 09/01/16 10/05/16 History Furosemide Tab [Lasix Tab] 40 mg PO BID #60 tablet 09/01/16 10/05/16 Rx Losartan Potassium 100 mg PO DAILY 09/01/16 10/05/16 History Allergies Allergy/AdvReac Type Severity Reaction Status Date / Time No Known Allergies Allergy Verified 05/16/16 13:06 Medical,Surgical,& Family Hx - Medical History Cardio: History of: CHF, Hypertension (medication), Pacemaker (january 2012, single chamber ICD) Psychological: No history of: Previous Suicide Attempt Neurology: No history of: Seizures HEENT: History of: Dental Problems (partial upper) Renal: History of: Renal Failure (Chronic renal failure), Renal Problems ( kidney biopsy 12 years ago) - Surgical History Cardiac Surgeries: Sugical HX of: Cardiac Catheterization (2009 and 2011), Internal Defibrillator (01/15/12) HEENT Surgeries: Surgical HX of: Thyroid Surgery (right) Orthopedic Surgeries: Surgical HX of;: Total Knee Replacement (left 05/23) - Family History Family History: Reports;: Family Hypertension (mother) - Social History Smoking Status: Former smoker Frequency of Alcohol Use: None Type of Drug Use: None 12 point system: reviewed and no additional remarkable complaints except as stated Exam - Constitutional Vitals: Period Temp Pulse Resp BP Sys/Reyes Pulse Ox Last 24 Hr 97.9 F-97.9 F 37-53 20-22 153-153/112-113 94-99 - General General appearance: alert, in no apparent distress - Head Head exam: Present: atraumatic, normocephalic, normal inspection - Eye Eye exam: Present: normal appearance, PERRL, EOMI - ENT ENT exam: Present: normal exam, normal oropharynx, mucous membranes moist, TM's normal bilaterally, normal external ear exam - Neck Neck exam: Present: normal inspection, full ROM, trachea midline. Absent: tenderness - Chest Chest inspection: Present: normal inspection, symmetric chest wall rise - Respiratory Respiratory exam: Present: rales present on exam - Cardiovascular Cardiovascular exam: Present: normal rhythm, bradycardia when examined by ER physician now regular rate when I examined him - Abdominal Exam Abdominal exam: Present: soft, normal bowel sounds. - Extremities Exam Extremities exam: Present: full ROM, normal capillary refill, other (+1 LE edema bilat). - Back Exam Back exam: Present: normal inspection, full ROM. - Neurological Exam Neurological exam: Present: alert, oriented X3, CN II-XII intact, normal gait, reflexes normal - Psychiatric Psychiatric exam: Present: normal affect, normal mood - Skin Skin exam: Present: warm, dry, intact, normal color Results - Labs CBC & BMP: 10/05/16 20:50 10/05/16 20:50
[2016-10-06 02:01] LABS: Basophils % 0.4 % (0.0-0.8); Eosinophils # 0.1 10*3/uL (0.0-0.87); Hematocrit 39.5 VOL% (42.0-52.0); Hemoglobin 12.9 GM/DL (14.0-18.0); Immature Granulocytes % 0.4 %; Immature Granulocytes Absolute 0.02 #; Lymphocytes # 1.1 10*3/uL (1.4-4.0); Lymphocytes % 21.4 % (21.2-54.2); Mean Corpuscular HGB Conc 32.7 GM/DL (32-36); Mean Corpuscular Hemoglobin 28 PG (27-34); Mean Corpuscular Volume 84.8 FL (87-102); Mean Platelet Volume 10.5 FL (9.6-12.0); Monocytes # 0.2 10*3/uL (0.11-0.8); Monocytes % 3.5 % (1.7-12.7); Neutrophils # 3.8 10*3/uL (1.4-7.4); Neutrophils % 73.3 % (38.7-73.9); Platelet Count 141 T/CUMM (130-400); Red Blood Count 4.66 MC/CUMM (3.8-5.5); Red Cell Distribution Width 14.4 % (9.3-17.3); White Blood Count 5.1 T/CUMM (4-12)
[2016-10-06 02:13] LABS: INR 1.2; PT Patient Result 12.7 SECS
--- NOTE | 2016-10-06 02:22 | EKG Report ---
Stationary ECG Study [facility] ER Test Date: 10/05/2016 8:52:18 PM Pat Name: MOHINI GLASS Department: Room: 107 Gender: M Cage Supervisor: : 1950 Requested by: Cirilo Smith Order Number: [id number] Reading MD: GAGAN PURCELL Intervals [place] Rate: 69 P: 45 ME: 215 QRS: -15 QRSD: 110 T: 101 QT: 378 QTc: 397 Interpretive Statements SINUS RHYTHM WITH FIRST DEGREE AV BLOCK WITH FREQUENT VENTRICULAR PREMATURE COMPLEXES IN A PATTERN OF BIGEMINY LEFT ATRIAL ENLARGEMENT NONSPECIFIC T WAVE ABNORMALITY Electronically Signed On 10-06-16 05:30:31 CDT by GAGAN PURCELL [email or web address]
[2016-10-06 02:26] LABS: Partial Thromboplastin Time 105.7 SECS (0-40)
[2016-10-06 03:16] LABS: Albumin 3.6 G/DL (3.4-5.0); Bilirubin,Total 0.6 MG/DL (0.2-1.0); Calcium 9.7 MG/DL (8.5-10.1); Potassium 3.6 MMOL/L (3.5-5.1); Total Protein 7.3 G/DL (6.4-8.3)
[2016-10-06 03:22] LABS: Troponin I Only 0.147 NG/ML (0.00-0.045)
--- NOTE | 2016-10-06 07:57 | XRay Report ---
XR chest 2V Indication: SOB Comparison: Chest x-ray dated September 01, 2016 Technique: Frontal and lateral views of the chest. Findings: Continued cardiomegaly. Pacemaker apparatus again demonstrated. Small bilateral pleural fluid, unchanged. Visualized osseous and surrounding soft tissue structures appear grossly unchanged. IMPRESSION: No significant interval change with findings as above. PROCEDURE INTERPRETED AT [facility] DEPARTMENT OF RADIOLOGY Final Report Signed by: Dr Robert Hodge
[2016-10-06] MEDS: PANTOPRAZOLE 40 MG TABLET PO SCH (09:01)
[2016-10-06] MEDS: FUROSEMIDE 40 MG/4 ML VIAL IV SCH ×2 (09:01→15:52)
[2016-10-06] MEDS: ASCORBIC ACID 500 MG TABLET PO SCH (09:01)
[2016-10-06] MEDS: LOSARTAN 50 MG TABLET PO SCH (09:02)
[2016-10-06] MEDS: MULTIVITAMIN (CENTRUM) TABLET PO SCH (09:02)
[2016-10-06] MEDS: ASPIRIN CHEW 81 MG TABLET PO SCH (09:02)
--- NOTE | 2016-10-06 09:15 | Cardiology Consult Note ---
Assessment and Plan - Time spent with patient Time spent with patient: Greater than 30 minutes (1) Hypertension Status: Chronic Assessment and plan: SEE PLAN OF CARE LISTED BELOW Current Visit: Yes (2) ICD (implantable cardioverter-defibrillator) in place Status: Chronic Assessment and plan: SEE PLAN OF CARE LISTED BELOW Current Visit: Yes (3) Hypertension Status: Chronic Assessment and plan: SEE PLAN OF CARE LISTED BELOW Current Visit: Yes (4) NICM (nonischemic cardiomyopathy) Status: Chronic Assessment and plan: SEE PLAN OF CARE LISTED BELOW Current Visit: Yes (5) CHF (congestive heart failure) Status: Acute Assessment and plan: SEE PLAN OF CARE LISTED BELOW Current Visit: Yes Qualifiers: Congestive heart failure type: combined Congestive heart failure chronicity : acute on chronic Qualified Code(s): I50.43 - Acute on chronic combined systolic (congestive) and diastolic (congestive) heart failure (6) CRI (chronic renal insufficiency) Status: Chronic Assessment and plan: SEE PLAN OF CARE LISTED BELOW Current Visit: Yes Qualifiers: Chronic kidney disease stage: stage 4 (severe) Qualified Code(s): N18.4 - Chronic kidney disease, stage 4 (severe) (7) Dyslipidemia Status: Chronic Assessment and plan: SEE PLAN OF CARE LISTED BELOW Current Visit: No (8) Atrial fibrillation Status: Acute Assessment and plan: SEE PLAN OF CARE LISTED BELOW Current Visit: Yes Qualifiers: Atrial fibrillation type: paroxysmal Qualified Code(s): I48.0 - Paroxysmal atrial fibrillation History of Present Illness - Data of Consult Patient: known to practice within the last 3 years Consult date: 10/06/16 Requesting Physician: Eileen Carter - Consult Narrative Reason for consult: Shortness of breath, bradycardia History of present illness: [employer] SPECIALIST: DR. MUÑOZ Mr. Arevalo, 66BM, is followed by Dr. Muñoz. Last seen in cardiology clinic 2016. Risk factors include: Hypertension, dyslipidemia, sedentary lifestyle. History of severe dilated cardiomyopathy, congestive heart failure, internal cardiac defibrillator and chronic renal insufficiency. His cardiomyopathy has been present for many years and was originally very severe. Over time, with medical therapy, his cardiomyopathy has improved with the most recent ejection fraction calculated at 35%. Presented to [facility] ED October 05, 2016 with complaints of worsening shortness of breath 1 week. Denies chest pain, heaviness or tightness. Reports that his shortness of breath is worsened to the point that is difficult for him to lie flat. 2-3 pillow orthopnea noted. It is noted that a heart rate of 37 was recorded while in the emergency department. However, it is suspected that this is related to his ventricular bigeminal pattern noted on the EKG. Chest x-ray revealed small bilateral pleural fluid. VQ lung scan reveals intermediate probability for PE. He has been maintained on heparin IV. Echocardiogram September 03, 2016 reveals the following: EF 35%, grade 2 diastolic dysfunction, PAP 36 mmHg + RAP of 8 mmHg, mild MR. ICD was interrogated this morning. He is not having bradycardia as previously thought. He is having frequent episodes of ventricular bigeminy which gives a false pulse rate. Of note, atrial fibrillation has been noted and I believe this is a new diagnosis as I do not see this listed on previous encounters with Mr. Arevalo. Troponins have remained flat at 0.165-0.147. Continue to follow. ASSESSMENT/PLAN: 1. SOB - multifactorial to include possible PE, acute on chronic CHF. Continue current plan of care 2. ABNORMAL VQ LUNG SCAN - currently on IV Heparin. Continue current plan of care 3. ACUTE ON CHRONIC CHF -secondary to combined systolic dysfunction (EF 35%) and diastolic dysfunction. NYHA Class III. 4. HYPERTENSION - will adjust medications accordingly during the hospital stay. 5. DYSLIPIDEMIA - fasting lipid profile in the morning. Stop Simvastatin and transition to Crestor. 6. CKD, STAGE IV - Dr. Fonseca managing. Currently on losartan, home medication. Will continue unless Dr. Fonseca believes we should discontinue. 7. NICM, EF 35% - continue beta-geena, ARB 8. ELEVATED TROPONIN - though elevated, remains flat. Not thought to be NC. Continue to cycle on follow. CPK and CK-MB within normal limits. 9. ATRIAL FIBRILLATION - I believe this will be a new diagnosis. TERENCE VASC SCORE 2. Currently rate controlled, IV Heparin continues. 10. S/P ICD -interrogated and found to be working appropriately. CC: Sorin Bassett MD - Home Medications and Allergies Home Medications: Home Medications Medication Instructions Recorded Confirmed Type Ascorbic Acid [Vitamin C] 500 mg PO DAILY 05/16/16 10/05/16 History Carvedilol [Coreg] 25 mg PO BID 05/16/16 10/05/16 History Furosemide Tab [Lasix Tab] 40 mg PO DAILY 05/16/16 10/05/16 History Multivit-Min/FA/Lycopen/Lutein 1 tablet PO DAILY 05/16/16 10/05/16 History [Centrum Silver Ultra Men's Tab] NIFEdipine XL TAB [Procardia Xl] 30 mg PO BEDTIME 05/16/16 10/05/16 History Simvastatin [Zocor] 20 mg PO BEDTIME 05/16/16 10/05/16 History Tamsulosin [Flomax] 0.4 mg PO DAILY 05/16/16 10/06/16 History Aspirin Chew Tab 81 mg PO DAILY 09/01/16 10/05/16 History Furosemide Tab [Lasix Tab] 40 mg PO BID #60 tablet 09/01/16 10/05/16 Rx Losartan Potassium 100 mg PO DAILY 09/01/16 10/05/16 History Allergies/Adverse Reactions: Allergies Allergy/AdvReac Type Severity Reaction Status Date / Time No Known Allergies Allergy Verified 05/16/16 13:06 Review of systems: REVIEW OF SYSTEMS: - Constitutional Constitutional: Present: Fatigue. Absent: syncope, anorexia, night sweats - EENT Eyes: Absent: blurry vision, loss of vision, diplopia Ears: Absent: decreased hearing, ear pain, ear discharge - Cardiovascular Cardiovascular: Denies: chest pain with exertion. Denies edema, palpitations. Absent: chest pain with deep breath, claudication - Respiratory Respiratory: Present: ARCEO, cough. Orthopnea. Absent: wheezing, hemoptysis, change in phlegm color - Gastrointestinal Gastrointestinal: Denies: constipation. Absent: adbominal pain, hematemesis, hematochezia, melena, change in bowel habits, nausea - Genitourinary Genitourinary: Absent: difficulty urinating, dysuria, urinary hesitancy, flank pain - Musculoskeletal Musculoskeletal: Present: back pain Absent: joint swelling, muscle cramps, muscle weakness - Neurological Neurological: Present: normal gait without frequent falls. Absent: dizziness, hemiparesis - Psychiatric Psychiatric: Absent: anxiety, depression, difficulty concentrating - Endocrine Endocrine: Present: fatigue. Absent: cold intolerance, heat intolerance, polyuria, polyphagia, polydipsia - Hematologic/Lymphatic Hematologic/Lymphatic: Present: easy bruising. Absent: easy bleeding -Integumentary Integumentary: Absent: lesions, rashes, skin breakdown Medical,Surgical,& Family Hx - Medical History Cardio: History of: CHF, Hypertension (medication), Pacemaker (january 2012, single chamber ICD) No history of: CAD, Valvular Heart Disease Psychological: No history of: Previous Suicide Attempt Neurology: No history of: Seizures HEENT: History of: Dental Problems (partial upper) Renal: History of: Renal Failure (Chronic renal failure), Renal Problems ( kidney biopsy 12 years ago) - Surgical History Cardiac Surgeries: Sugical HX of: Cardiac Catheterization (2009 and 2011), Internal Defibrillator (01/15/12) HEENT Surgeries: Surgical HX of: Thyroid Surgery (right) Orthopedic Surgeries: Surgical HX of;: Total Knee Replacement (left 05/23) - Family History Family History: Reports;: Family Hypertension (mother) - Social History Smoking Status: Former smoker Have you smoked in the last 12 months: No Frequency of Alcohol Use: None Type of Drug Use: None Physical Examination Vital Signs Temp Pulse Resp BP Pulse Ox 97.9 F 53 L 20 153/112 99 10/05/16 20:50 10/05/16 20:50 10/05/16 20:50 10/05/16 20:50 10/05/16 20:50 Exam: General: [Appears well with no apparent distress.] [Pleasant and cooperative. ] [Appears comfortable.] HEENT: [PERRL, normocephalic, atraumatic. Mucous membranes moist. No jaundice noted. Conjunctiva moist and clear, sclerae anicteric] Neck: No obvious JVD/HJR, no thyromegaly or lymphadenopathy noted. No carotid bruit appreciated Cardiac: [Irregularly irregular rhythm, controlled rate. ] [No obvious murmur rub or gallop.] Lungs: [Clear to auscultation without accessory muscle use to assist the respiratory pattern.] Using oxygen intermittently Abdomen: Soft, bowel sounds normoactive. Nontender and nondistended. No abdominal bruit or thrill noted. No masses noted. Musculoskeletal: No fluid collection. Decreased range of motion is noted. Extremities: No clubbing, cyanosis noted. [ No edema noted.] Upper extremity pulses 2+. Lower extremity pulses 2+. Capillary refill less than 3 seconds. Skin: No unusual lesions or rashes. No skin breakdown appreciated. Neuro: Awake, alert and oriented 3. Moves all extremities well without hemiparesis or paralysis. No essential tremor is appreciated. Result/EKG - Labs CBC & BMP: 10/06/16 01:53 10/06/16 01:53 Lab Results: I have reviewed the past 24 hour labs Labs: Laboratory Results - last 24 hr 10/05/16 10/05/16 10/05/16 20:50 20:50 20:50 WBC 5.3 RBC 4.51 Hgb 12.5 L Hct 38.5 L MCV 85.4 L MCH 28 MCHC 32.5 RDW 14.4 Plt Count 138 MPV 11.6 Neut % (Auto) 41.7 Lymph % (Auto) 44.8 [place] % (Auto) 9.2 Eos % (Auto) 3.7 Baso % (Auto) 0.4 Neut # (Auto) 2.2 Lymph # (Auto) 2.4 [place] # (Auto) 0.5 Eos # (Auto) 0.2 Baso # (Auto) 0.0 Immature Gran % 0.2 Nucleated RBC % 0.0 Immature Gran # 0.01 Nucleated RBCs # 0.00 Immature Plt Fraction 0.0 INR PT Patient/Control Mix D-Dimer, Quantitative 2.0 Circ Anticoag PTT Sodium 143 Potassium 4.3 Chloride 111 H Carbon Dioxide 24 Anion Gap 12.3 BUN 34 H Creatinine 3.50 H GFR Calculation 25 BUN/Creatinine Ratio 9.00 Glucose 94 Calculated Osmolality 292.0 Calcium 9.3 Magnesium 2.4 Total Bilirubin 0.40 AST 16 ALT 25 Alkaline Phosphatase 103 Total Creatine Kinase CK-MB (CK-2) Troponin I 0.165 H B-Natriuretic Peptide Total Protein 7.2 Albumin 3.4 Globulin 3.8 H Albumin/Globulin Ratio 0.8 L Urine Color Urine Appearance Urine pH Ur Specific [place] Urine Protein Urine Glucose (UA) Urine Ketones Urine Blood Urine Nitrate Urine Bilirubin Urine Urobilinogen Urine Leukocytes Urine RBC Urine WBC Ur Culture Indicated? Urine Opiates Screen Ur Barbiturates Screen Ur Phencyclidine Scrn U Amphetamine/Methamph U Benzodiazepines Scrn U Cocaine Metab Screen U Cannabinoids Screen 10/05/16 10/05/16 10/05/16 20:50 21:10 21:10 WBC RBC Hgb Hct MCV MCH MCHC RDW Plt Count MPV Neut % (Auto) Lymph % (Auto) [place] % (Auto) Eos % (Auto) Baso % (Auto) Neut # (Auto) Lymph # (Auto) [place] # (Auto) Eos # (Auto) Baso # (Auto) Immature Gran % Nucleated RBC % Immature Gran # Nucleated RBCs # Immature Plt Fraction INR PT Patient/Control Mix D-Dimer, Quantitative Circ Anticoag PTT Sodium Potassium Chloride Carbon Dioxide Anion Gap BUN Creatinine GFR Calculation BUN/Creatinine Ratio Glucose Calculated Osmolality Calcium Magnesium Total Bilirubin AST ALT Alkaline Phosphatase Total Creatine Kinase CK-MB (CK-2) Troponin I B-Natriuretic Peptide 1907 H Total Protein Albumin Globulin Albumin/Globulin Ratio Urine Color Yellow Urine Appearance Clear Urine pH 6.0 Ur Specific [place] 1.009 Urine Protein 100 Urine Glucose (UA) Negative Urine Ketones Negative Urine Blood Negative Urine Nitrate Negative Urine Bilirubin Negative Urine Urobilinogen < 2.0 H Urine Leukocytes Negative Urine RBC <1 Urine WBC 1 Ur Culture Indicated? Not indicated Urine Opiates Screen Negative Ur Barbiturates Screen Negative Ur Phencyclidine Scrn Negative U Amphetamine/Methamph Negative U Benzodiazepines Scrn Negative U Cocaine Metab Screen Negative U Cannabinoids Screen Negative 10/06/16 10/06/16 10/06/16 01:53 01:53 01:53 WBC 5.1 RBC 4.66 Hgb 12.9 L Hct 39.5 L MCV 84.8 L MCH 28 MCHC 32.7 RDW 14.4 Plt Count 141 MPV 10.5 Neut % (Auto) 73.3 Lymph % (Auto) 21.4 [place] % (Auto) 3.5 Eos % (Auto) 1.0 Baso % (Auto) 0.4 Neut # (Auto) 3.8 Lymph # (Auto) 1.1 L [place] # (Auto) 0.2 Eos # (Auto) 0.1 Baso # (Auto) 0.0 Immature Gran % 0.4 Nucleated RBC % 0.0 Immature Gran # 0.02 Nucleated RBCs # 0.00 Immature Plt Fraction 0.0 INR PT Patient/Control Mix D-Dimer, Quantitative Circ Anticoag PTT Sodium 143 Potassium 3.6 Chloride 109 H Carbon Dioxide 25 Anion Gap 12.6 BUN 33 H Creatinine 3.50 H GFR Calculation 24 BUN/Creatinine Ratio 9.00 Glucose 106 Calculated Osmolality 291.0 Calcium 9.7 Magnesium Total Bilirubin 0.60 AST 16 ALT 24 Alkaline Phosphatase 108 Total Creatine Kinase 104 CK-MB (CK-2) 1.4 Troponin I 0.147 H B-Natriuretic Peptide Total Protein 7.3 Albumin 3.6 Globulin 3.7 H Albumin/Globulin Ratio 0.9 L Urine Color Urine Appearance Urine pH Ur Specific [place] Urine Protein Urine Glucose (UA) Urine Ketones Urine Blood Urine Nitrate Urine Bilirubin Urine Urobilinogen Urine Leukocytes Urine RBC Urine WBC Ur Culture Indicated? Urine Opiates Screen Ur Barbiturates Screen Ur Phencyclidine Scrn U Amphetamine/Methamph U Benzodiazepines Scrn U Cocaine Metab Screen U Cannabinoids Screen 10/06/16 10/06/16 01:53 08:04 WBC RBC Hgb Hct MCV MCH MCHC RDW Plt Count MPV Neut % (Auto) Lymph % (Auto) [place] % (Auto) Eos % (Auto) Baso % (Auto) Neut # (Auto) Lymph # (Auto) [place] # (Auto) Eos # (Auto) Baso # (Auto) Immature Gran % Nucleated RBC % Immature Gran # Nucleated RBCs # Immature Plt Fraction INR 1.2 PT Patient/Control Mix 12.7 D-Dimer, Quantitative Circ Anticoag PTT 105.7 H* D 55.1 H D Sodium Potassium Chloride Carbon Dioxide Anion Gap BUN Creatinine GFR Calculation BUN/Creatinine Ratio Glucose Calculated Osmolality Calcium Magnesium Total Bilirubin AST ALT Alkaline Phosphatase Total Creatine Kinase CK-MB (CK-2) Troponin I B-Natriuretic Peptide Total Protein Albumin Globulin Albumin/Globulin Ratio Urine Color Urine Appearance Urine pH Ur Specific [place] Urine Protein Urine Glucose (UA) Urine Ketones Urine Blood Urine Nitrate Urine Bilirubin Urine Urobilinogen Urine Leukocytes Urine RBC Urine WBC Ur Culture Indicated? Urine Opiates Screen Ur Barbiturates Screen Ur Phencyclidine Scrn U Amphetamine/Methamph U Benzodiazepines Scrn U Cocaine Metab Screen U Cannabinoids Screen - Diagnostic Findings Procedure: Chest x-ray: report reviewed by me - EKG EKG results: interpreted by me EKG shows: sinus rhythm Quality Measures - Stroke Symptom Onset Unknown: No
--- NOTE | 2016-10-06 09:30 | EKG Report ---
Stationary ECG Study [facility] Test Date: 10/06/2016 9:28:13 AM Pat Name: MOHINI GLASS Department: Room: 107 Gender: M Costume Seamstress: : 1950 Requested by: Aruna Sewell Order Number: [id number] Reading MD: GAGAN PURCELL Intervals [place] Rate: 94 P: 999 MN: 0 QRS: 69 QRSD: 110 T: 0 QT: 373 QTc: 425 Interpretive Statements ATRIAL FIBRILLATION WITH ABERRANT CONDUCTION OR VENTRICULAR PREMATURE COMPLEXES ABNORMAL RHYTHM ECG Electronically Signed On 10-06-16 11:04:39 CDT by GAGAN PURCELL [email or web address]
--- NOTE | 2016-10-06 09:39 | Hospitalist Progress Note ---
Assessment and Plan - Time spent with patient Time spent with patient: Greater than 30 minutes (1) Acute dyspnea Status: Acute Current Visit: Yes (2) Bradycardia Status: Acute Current Visit: Yes (3) CHF (congestive heart failure) Status: Chronic Current Visit: Yes (4) CRI (chronic renal insufficiency) Status: Chronic Current Visit: Yes (5) Hypertension Status: Chronic Current Visit: Yes (6) Dyslipidemia Status: Chronic Assessment and plan: Currently on IV Lasix 40 mg twice daily, continue the same, monitor input and output and renal function. He has been scheduled for a VQ scan, will follow report. Trend troponin. Obtain echocardiogram Continue breathing treatment Cardiology follow-up, they have arranged for interrogation of ICD. Pulmonology follow-up. We will ask nephrology Dr. Fonseca to see him as inpatient Current Visit: No Hospitalist: Subjective Interval history: Admitted overnight for decompensated CHF, he had presented with worsening shortness of breath. States that his breathing slightly better today. Has been responding well to IV diuresis. Scheduled for VQ scan today. Denies any chest pain or palpitation. ICD interrogation planned. He wants to see Dr. Fonseca for his chronic kidney disease since he had a referral to see him as outpatient tomorrow. Exam - Constitutional Vitals: Period Temp Pulse Resp BP Sys/Reyes Pulse Ox Last 24 Hr 94.9 F-97.9 F 36-95 18-24 138-172/77-134 94-100 Exam: - General General appearance: alert, in no apparent distress - Head Head exam: Present: atraumatic, normocephalic, normal inspection - Eye Eye exam: Present: normal appearance, PERRL, EOMI - ENT ENT exam: Present: normal exam, normal oropharynx, mucous membranes moist, TM's normal bilaterally, normal external ear exam - Neck Neck exam: Present: normal inspection, full ROM, trachea midline. Absent: tenderness - Chest Chest inspection: Present: normal inspection, symmetric chest wall rise - Respiratory Respiratory exam: Present: rales present on exam - Cardiovascular Cardiovascular exam: Present: normal rhythm, bradycardia when examined by ER physician now regular rate when I examined him - Abdominal Exam Abdominal exam: Present: soft, normal bowel sounds. - Extremities Exam Extremities exam: Present: full ROM, normal capillary refill, other (+1 LE edema bilat). - Back Exam Back exam: Present: normal inspection, full ROM. - Neurological Exam Neurological exam: Present: alert, oriented X3, CN II-XII intact, normal gait, reflexes normal - Psychiatric Psychiatric exam: Present: normal affect, normal mood - Skin Skin exam: Present: warm, dry, intact, normal color Results - Labs CBC & BMP: 10/06/16 01:53 10/06/16 01:53 Quality Measures - Stroke Symptom Onset Unknown: No
--- NOTE | 2016-10-06 09:54 | Event Note ---
Interrogation of his device reveals appropriate function. There are times in telemetry where he appears to have some heart block or profound bradycardia, however he really just has a very small QRS complex that can appear to be a P wave at times. Accordingly I am going to reinitiate his beta-geena because of his significant ventricular ectopy.
[2016-10-06] MEDS: CARVEDILOL 6.25 MG TABLET PO SCH ×2 (10:13→20:19)
--- NOTE | 2016-10-06 13:21 | Nuclear Medicine Report ---
History: Shortness of breath. Elevated d-dimer Date: 10/06/2016 Study: Nuclear medicine ventilation/perfusion lung scan Comparison exam: Chest x-ray 10/05/2016 Following the inhalation of 40 mCi aerosolized technetium 99m DTPA, images were obtained of the lungs in 3 projections for the purpose of a ventilation study, using portable technique. Then, following the IV administration of 5 mCi technetium 99m MAA, images were acquired of the lungs in the same projections for the purpose of a perfusion exam. There is a moderate-sized matched areas of decreased ventilation and perfusion overlying the region of the right middle lobe laterally without corresponding radiographic infiltrate. There is a nonsegmental area of decreased ventilation perfusion over the anterior left upper lung which corresponds to the patient's pacemaker. There is a small matched area of decreased ventilation and perfusion of a subsegmental nature without corresponding radiographic infiltrate anteriorly in the left lung apex. Impression: Intermediate probability for pulmonary embolic disease using revised PIOPED criteria PROCEDURE INTERPRETED AT [facility] DEPARTMENT OF RADIOLOGY Final Report Signed by: Dr. Raven Jensen
[2016-10-06] MEDS: HEPARIN DRIP 25,000 UNITS/500 ML PREMIX IV SCH (17:22)
[2016-10-06] MEDS: hydrALAZINE 20 MG/1 ML VIAL IV PRN (18:10)
[2016-10-06] MEDS: SIMVASTATIN 20 MG TABLET PO SCH (20:18)
[2016-10-07] MEDS: HEPARIN DRIP 25,000 UNITS/500 ML PREMIX IV SCH ×2 (00:24→10:14)
[2016-10-07] MEDS: hydrALAZINE 20 MG/1 ML VIAL IV PRN (03:39)
[2016-10-07 03:49] LABS: Basophils % 0.1 % (0.0-0.8); Hematocrit 35.6 VOL% (42.0-52.0); Hemoglobin 11.7 GM/DL (14.0-18.0); Immature Granulocytes % 0.5 %; Immature Granulocytes Absolute 0.06 #; Lymphocytes % 17.1 % (21.2-54.2); Mean Corpuscular HGB Conc 32.9 GM/DL (32-36); Mean Corpuscular Hemoglobin 27 PG (27-34); Mean Corpuscular Volume 82.8 FL (87-102); Monocytes # 1.1 10*3/uL (0.11-0.8); Monocytes % 9.2 % (1.7-12.7); Neutrophils # 8.5 10*3/uL (1.4-7.4); Neutrophils % 73.1 % (38.7-73.9); Platelet Count 150 T/CUMM (130-400); Red Cell Distribution Width 14.2 % (9.3-17.3); White Blood Count 11.7 T/CUMM (4-12)
[2016-10-07 04:21] LABS: Calcium 9.1 MG/DL (8.5-10.1); Magnesium 2.3 MG/DL (1.8-2.4); Osmolality,Calculated 291.4 MOS/KG (273-304); Potassium 3.8 MMOL/L (3.5-5.1)
[2016-10-07 04:40] LABS: Risk Ratio 2.13; VLDL CHOLESTEROL 8.4 MG/DL
--- NOTE | 2016-10-07 06:53 | ECHO Report ---
Yg Arevalo 10/06/2016 Exam Date: 11:16 Referring Physician: Akiko Sykes Technologist: LATHA Age: 66 Ht (in): 74 Wt (lb): 179 MExam Location: [facility] Gender: Echo [id number]: Dyspnea, unspecified, Bradycardia, Indications:unspecified, Essential (primary) hypertension, CKD, NICM, ICD, Dyslipidemia BP: 138 / 92 HR: 102 Atrial fibrillationRhythm: Technical Quality: IMPRESSIONS Severely reduced LV systolic function with global hypokinesis, ejection fraction estimated at 20-25%. Diastolic parameters are indeterminate due to underlying atrial fibrillation. Mild to moderate biatrial enlargement. Mildly dilated left ventricle with moderate concentric left ventricular hypertrophy. Mild mitral regurgitation. Mild pulmonic regurgitation. Mild to moderate tricuspid regurgitation. Trivial pericardial effusion. Right side electronic leads consistent with pacemaker or defibrillator. MEASUREMENTS (Male / Female) Normal Values 2D ECHO LV Diastolic Diameter PLAX 5.9 cm 4.2 - 5.9 / 3.9 - 5.3 cm LV Systolic Diameter PLAX 4.6 cm LV Fractional Shortening PLAX 21.4 % IVS Diastolic Thickness 1.5 cm 0.6 - 1.0 / 0.6 - 0.9 cm LVPW Diastolic Thickness 1.5 cm 0.6 - 1.0 / 0.6 - 0.9 cm RV Internal Dim ED PLAX 2.5 cm Aortic Root Diameter 3.3 cm LA Systolic Diameter LX 4.6 cm 3.0 - 4.0 / 2.7 - 3.8 cm DOPPLER TR Peak Velocity 319.0 cm/s TR Peak Gradient 40.7 mmHg FINDINGS Left Ventricle Mildly increased left ventricular cavity size. Moderate left ventricular hypertrophy. Left ventricular ejection fraction is estimated at 20-25%. Right Ventricle Normal size. Catheter/pacemaker wire visualized in the right ventricle. Right Atrium Mildly to moderately increased right atrial size. Catheter/pacemaker wire in the right atrial cavity. Left Atrium Mildly to moderately increased left atrial size. Mitral Valve Morphologically normal mitral valve. Mild mitral valve regurgitation. Aortic Valve Morphologically normal aortic valve without significant sclerosis or stenosis. There is no aortic regurgitation. Tricuspid Valve Morphologically normal tricuspid valve. Moderate tricuspid valve regurgitation. Tricuspid regurgitation velocities suggest a PAP of 51 mmHg. Pulmonic Valve Morphologically normal pulmonic valve. Mild pulmonary valve regurgitation. Pericardium Trivial pericardial effusion. Aorta Normal ascending aorta dimension. Melina Chandra MD (Electronically Signed) 07 October 2016 Final Date: 06:52
--- NOTE | 2016-10-07 08:40 | Cardiology Progress Note ---
<Aruna García E - Last Filed: 10/07/16 08:09> Assessment and Plan - Time spent with patient Time spent with patient: Greater than 30 minutes (1) ICD (implantable cardioverter-defibrillator) in place Status: Chronic Assessment and plan: SEE PLAN OF CARE LISTED BELOW Current Visit: Yes (2) Hypertension Status: Chronic Assessment and plan: SEE PLAN OF CARE LISTED BELOW Current Visit: Yes (3) NICM (nonischemic cardiomyopathy) Status: Chronic Assessment and plan: SEE PLAN OF CARE LISTED BELOW Current Visit: Yes (4) CHF (congestive heart failure) Status: Acute Assessment and plan: SEE PLAN OF CARE LISTED BELOW Current Visit: Yes Qualifiers: Congestive heart failure type: combined Congestive heart failure chronicity : acute on chronic Qualified Code(s): I50.43 - Acute on chronic combined systolic (congestive) and diastolic (congestive) heart failure (5) CRI (chronic renal insufficiency) Status: Chronic Assessment and plan: SEE PLAN OF CARE LISTED BELOW Current Visit: Yes Qualifiers: Chronic kidney disease stage: stage 4 (severe) Qualified Code(s): N18.4 - Chronic kidney disease, stage 4 (severe) (6) Dyslipidemia Status: Chronic Assessment and plan: SEE PLAN OF CARE LISTED BELOW Current Visit: No (7) Atrial fibrillation Status: Acute Assessment and plan: SEE PLAN OF CARE LISTED BELOW Current Visit: Yes Qualifiers: Atrial fibrillation type: paroxysmal Qualified Code(s): I48.0 - Paroxysmal atrial fibrillation Cardiology - PN: Subj Interval history: INFECTIOUS DISEASE TECHNICIAN: DR. MISHRA SUMMARY: Mr. Arevalo, 66BM, with history of hypertension, dyslipidemia, severe dilated cardiomyopathy, congestive heart failure, internal cardiac defibrillator and chronic renal insufficiency. His cardiomyopathy has been present since 2009 ([facility] in [place] 2009), now S/P ICD implantation 2011. Echocardiogram: EF 25%, no significant valvular abnormality. PAP 51 mmHg. Admitted October 05, 2016 with complaints of SOB. Diagnosed with acute on chronic CHF. VQ lung scan revealed intermediate probability for PE. He has been maintained on Heparin IV. New diagnosis of atrial fibrillation during this admission. ICD was interrogated and found to be working appropriately. There was concern about possible profound bradycardia or heart block however, it was determined he has a very small QRS complex which may appear as a P-wave at times. Beta-blockade has been reinitiated due to his recent significant ventricular ectopy, which has improved. Troponins mildly elevated in the setting of CKD, but remained flat. This is not NV. OCTOBER 07, 2016: Patient seems to have diuresed well since admission, as his weight is down approximately 4 kg. This morning, he is breathing much more comfortably. Occasionally, he does have inspiratory pain in the left upper abdominal area with deep inspiration but this is improving as well. Denies hemoptysis. Ectopy has improved. Tolerating beta-blockade, ARB without problems. Patient will require formal anticoagulation prior to discharge given his new diagnosis of atrial fibrillation and possible PTE. Will further discuss with Dr. Chandra and await additional recommendations. ASSESSMENT/PLAN: 1. SOB - multifactorial to include PE, acute on chronic CHF. Continue current plan of care 2. ABNORMAL VQ LUNG SCAN - currently on IV Heparin. Moderate probability of PE. Continue current plan of care 3. ACUTE ON CHRONIC CHF - secondary to combined systolic dysfunction (EF 25%) and diastolic dysfunction. NYHA Class III initially, now Class II. 4. HYPERTENSION - will adjust medications accordingly during the hospital stay. 5. DYSLIPIDEMIA - fasting lipid profile in the morning. Stop Simvastatin and transition to Crestor. 6. CKD, STAGE IV - Dr. Fonseca managing. Currently on losartan, home medication. Will continue unless Dr. Fonseca believes we should discontinue. 7. NICM, EF 25% - continue beta-geena, ARB. [facility] in [place] 2009 - no CAD by patient report. 8. ELEVATED TROPONIN - though elevated, remains flat. Not NV. CPK and CK-MB within normal limits. 9. ATRIAL FIBRILLATION - New diagnosis. TERENCE VASC SCORE 2. Currently rate controlled, IV Heparin continues. Will benefit from NOAC or Warfarin. 10. S/P ICD - interrogated and found to be working appropriately. Exam (Progress Note) - Constitutional Vitals: Period Temp Pulse Resp BP Sys/Reyes Pulse Ox Last 24 Hr 97.9 F-99.5 F 62-107 12-23 118-168/80-113 94-100 Exam: General: [Appears well with no apparent distress.] [Pleasant and cooperative. ] [Appears comfortable.] HEENT: [Bilateral arcus, normocephalic, atraumatic. Mucous membranes moist. No jaundice noted. Conjunctiva moist and clear, sclerae anicteric] Neck: No JVD/HJR, no thyromegaly or lymphadenopathy noted. No carotid bruit appreciated Cardiac: [Irregularly irregular rhythm, controlled rate.] [No murmur rub or gallop.] Lungs: [Scant crackles in the bases posteriorly, improved with cough. No wheezing. Not requiring oxygen at this time. Abdomen: Soft, bowel sounds normoactive. Nontender and nondistended. No abdominal bruit or thrill noted. No masses noted. Musculoskeletal: No fluid collection. Decreased range of motion is noted. Extremities: No clubbing, cyanosis noted. [ Trace BLE edema noted.] Upper extremity pulses 2+. Lower extremity pulses 1+. Capillary refill less than 3 seconds. Skin: No unusual lesions or rashes. No skin breakdown appreciated. Neuro: Awake, alert and oriented 3. Moves all extremities well without hemiparesis or paralysis. No essential tremor is appreciated. Result/EKG - Labs CBC & BMP: 10/07/16 03:01 10/07/16 03:01 Lab Results: I have reviewed the past 24 hour labs Labs: Laboratory Results - last 24 hr 10/06/16 10/06/16 10/06/16 08:04 14:23 21:07 WBC RBC Hgb Hct MCV MCH MCHC RDW Plt Count MPV Neut % (Auto) Lymph % (Auto) [place] % (Auto) Eos % (Auto) Baso % (Auto) Neut # (Auto) Lymph # (Auto) [place] # (Auto) Eos # (Auto) Baso # (Auto) Immature Gran % Nucleated RBC % Immature Gran # Nucleated RBCs # Immature Plt Fraction Circ Anticoag PTT 55.1 H D 51.0 H 47.1 H Sodium Potassium Chloride Carbon Dioxide Anion Gap BUN Creatinine GFR Calculation BUN/Creatinine Ratio Glucose Calculated Osmolality Calcium Magnesium Triglycerides Cholesterol LDL Cholesterol VLDL Cholesterol HDL Cholesterol Heart Disease Risk Ratio 10/07/16 10/07/16 10/07/16 03:01 03:01 03:01 WBC 11.7 D RBC 4.30 Hgb 11.7 L Hct 35.6 L MCV 82.8 L MCH 27 MCHC 32.9 RDW 14.2 Plt Count 150 MPV 12.0 Neut % (Auto) 73.1 Lymph % (Auto) 17.1 L [place] % (Auto) 9.2 Eos % (Auto) 0.0 Baso % (Auto) 0.1 Neut # (Auto) 8.5 H Lymph # (Auto) 2.0 [place] # (Auto) 1.1 H Eos # (Auto) 0.0 Baso # (Auto) 0.0 Immature Gran % 0.5 Nucleated RBC % 0.0 Immature Gran # 0.06 Nucleated RBCs # 0.00 Immature Plt Fraction 0.0 Circ Anticoag PTT Sodium 140 Potassium 3.8 Chloride 105 Carbon Dioxide 23 Anion Gap 15.8 H BUN 46 H Creatinine 3.50 H GFR Calculation 24 BUN/Creatinine Ratio 13.00 Glucose 121 H Calculated Osmolality 291.4 Calcium 9.1 Magnesium 2.3 Triglycerides 42 Cholesterol 113 LDL Cholesterol 58.0 VLDL Cholesterol 8.4 HDL Cholesterol 53 Heart Disease Risk Ratio 2.13 10/07/16 03:01 WBC RBC Hgb Hct MCV MCH MCHC RDW Plt Count MPV Neut % (Auto) Lymph % (Auto) [place] % (Auto) Eos % (Auto) Baso % (Auto) Neut # (Auto) Lymph # (Auto) [place] # (Auto) Eos # (Auto) Baso # (Auto) Immature Gran % Nucleated RBC % Immature Gran # Nucleated RBCs # Immature Plt Fraction Circ Anticoag PTT 59.5 H D Sodium Potassium Chloride Carbon Dioxide Anion Gap BUN Creatinine GFR Calculation BUN/Creatinine Ratio Glucose Calculated Osmolality Calcium Magnesium Triglycerides Cholesterol LDL Cholesterol VLDL Cholesterol HDL Cholesterol Heart Disease Risk Ratio - EKG EKG results: interpreted by me EKG shows: atrial fibrillation Quality Measures - Stroke Symptom Onset Unknown: No <Melina Chandra - Last Filed: 10/07/16 18:27> Cardiology - PN: Subj Interval history: I have personally interviewed and evaluated the patient, reviewed the chart and discussed medical decision-making with Practitioner Raquel. I have read this note and agree with her documentation here in. He has no contraindication anticoagulant therapy. We will initiate Coumadin. Exam (Progress Note) - Constitutional Vitals: Period Temp Pulse Resp BP Sys/Reyes Pulse Ox Last 24 Hr 97.9 F-99.5 F 60-90 10-23 118-158/78-113 97-100 Result/EKG - Labs CBC & BMP: 10/07/16 03:01 10/07/16 03:01 Labs: Laboratory Results - last 24 hr 10/06/16 10/07/16 10/07/16 21:07 03:01 03:01 WBC 11.7 D RBC 4.30 Hgb 11.7 L Hct 35.6 L MCV 82.8 L MCH 27 MCHC 32.9 RDW 14.2 Plt Count 150 MPV 12.0 Neut % (Auto) 73.1 Lymph % (Auto) 17.1 L [place] % (Auto) 9.2 Eos % (Auto) 0.0 Baso % (Auto) 0.1 Neut # (Auto) 8.5 H Lymph # (Auto) 2.0 [place] # (Auto) 1.1 H Eos # (Auto) 0.0 Baso # (Auto) 0.0 Immature Gran % 0.5 Nucleated RBC % 0.0 Immature Gran # 0.06 Nucleated RBCs # 0.00 Immature Plt Fraction 0.0 Circ Anticoag PTT 47.1 H Sodium 140 Potassium 3.8 Chloride 105 Carbon Dioxide 23 Anion Gap 15.8 H BUN 46 H Creatinine 3.50 H GFR Calculation 24 BUN/Creatinine Ratio 13.00 Glucose 121 H Calculated Osmolality 291.4 Calcium 9.1 Magnesium 2.3 Triglycerides Cholesterol LDL Cholesterol VLDL Cholesterol HDL Cholesterol Heart Disease Risk Ratio 10/07/16 10/07/16 10/07/16 03:01 03:01 08:49 WBC RBC Hgb Hct MCV MCH MCHC RDW Plt Count MPV Neut % (Auto) Lymph % (Auto) [place] % (Auto) Eos % (Auto) Baso % (Auto) Neut # (Auto) Lymph # (Auto) [place] # (Auto) Eos # (Auto) Baso # (Auto) Immature Gran % Nucleated RBC % Immature Gran # Nucleated RBCs # Immature Plt Fraction Circ Anticoag PTT 59.5 H D 64.7 H Sodium Potassium Chloride Carbon Dioxide Anion Gap BUN Creatinine GFR Calculation BUN/Creatinine Ratio Glucose Calculated Osmolality Calcium Magnesium Triglycerides 42 Cholesterol 113 LDL Cholesterol 58.0 VLDL Cholesterol 8.4 HDL Cholesterol 53 Heart Disease Risk Ratio 2.13 10/07/16 15:21 WBC RBC Hgb Hct MCV MCH MCHC RDW Plt Count MPV Neut % (Auto) Lymph % (Auto) [place] % (Auto) Eos % (Auto) Baso % (Auto) Neut # (Auto) Lymph # (Auto) [place] # (Auto) Eos # (Auto) Baso # (Auto) Immature Gran % Nucleated RBC % Immature Gran # Nucleated RBCs # Immature Plt Fraction Circ Anticoag PTT 64.6 H Sodium Potassium Chloride Carbon Dioxide Anion Gap BUN Creatinine GFR Calculation BUN/Creatinine Ratio Glucose Calculated Osmolality Calcium Magnesium Triglycerides Cholesterol LDL Cholesterol VLDL Cholesterol HDL Cholesterol Heart Disease Risk Ratio
[2016-10-07] MEDS: FUROSEMIDE 40 MG/4 ML VIAL IV SCH ×2 (09:08→16:28)
[2016-10-07] MEDS: ASPIRIN CHEW 81 MG TABLET PO SCH (09:09)
[2016-10-07] MEDS: MULTIVITAMIN (CENTRUM) TABLET PO SCH (09:09)
[2016-10-07] MEDS: CARVEDILOL 6.25 MG TABLET PO SCH ×2 (09:09→20:51)
[2016-10-07] MEDS: PANTOPRAZOLE 40 MG TABLET PO SCH (09:09)
[2016-10-07] MEDS: ASCORBIC ACID 500 MG TABLET PO SCH (09:09)
[2016-10-07] MEDS: LOSARTAN 50 MG TABLET PO SCH (09:09)
--- NOTE | 2016-10-07 13:13 | Hospitalist Progress Note ---
Assessment and Plan (1) NICM (nonischemic cardiomyopathy) Status: Chronic Assessment and plan: Severely reduced LV systolic function with global hypokinesis, ejection fraction estimated at 20-25%. Continue diuresis Current Visit: Yes (2) Hypertension Status: Chronic Current Visit: Yes Qualifiers: Hypertension type: essential hypertension Qualified Code(s): I10 - Essential (primary) hypertension (3) Acute dyspnea Status: Acute Current Visit: Yes (4) ICD (implantable cardioverter-defibrillator) in place Status: Chronic Current Visit: Yes (5) Atrial fibrillation Status: Acute Assessment and plan: rate controlled. cardiology following. Current Visit: Yes Qualifiers: Atrial fibrillation type: paroxysmal Qualified Code(s): I48.0 - Paroxysmal atrial fibrillation (6) CKD (chronic kidney disease) stage 4, GFR 15-29 ml/min Status: Chronic Current Visit: Yes Hospitalist: Subjective Interval history: Patient seen and examined. No acute events overnight. Case discussed with nursing staff. Labs reviewed. cardiology consult noted. Patient feels better this morning. No shortness of breath. Will transfer to the floor today. Continue anticoagulation. Exam - Constitutional Vitals: Period Temp Pulse Resp BP Sys/Reyes Pulse Ox Last 24 Hr 97.9 F-99.5 F 60-90 10-23 118-168/78-113 94-100 Exam: Constitutional System: No distress. No tremulousness. Head: Normocephalic, atraumatic. Ears, Nose and Throat System: No pain or tenderness. No epistaxis or discharge Eyes System: Pupils equal, round, and reactive. Extraocular muscles intact. Neck: Supple, without adenopathy, No jugular venous distention. No thyromegaly, neck mass, or prior surgery apparent. Respiratory System: Chest clear to auscultation. Cardiovascular System: Heart with regular rate and rhythm. GI System: Abdomen soft, nontender. Normo active bowel sounds present. Musculoskeletal System: limbs with no pedal edema. Full distal pulses. Neurological System: No discernable sensory deficit. No aphasia Psychiatric System: Conversation is rational Results - Labs CBC & BMP: 10/07/16 03:01 10/07/16 03:01 Lab Results: I have reviewed the past 24 hour labs (VQ scan reviewed) Quality Measures - Stroke Symptom Onset Unknown: No
--- NOTE | 2016-10-07 16:41 | Nephrology Consult Note ---
History of Present Illness Chief complaint: Chronic kidney disease History of present illness: Mr. Arevalo is a 66 year old male with a history of chronic kidney disease stage III that dates back over 5 years. Moreover the gentleman has a history of kidney biopsy that was done by the programmer business in [facility]. Those results are not available. However, the patient reports he is has a history of a protein in his urine. He was originally scheduled to follow-up with me as a nephrology referral on today however, he came in with shortness of breath on yesterday. The patient had a long VQ scan that showed indeterminate findings and is currently on heparin infusion. There is been no change in his medications. He was initially going to have an adjustment in his Lasix therapy before referral to nephrology. At present no shortness of breath. No fevers or chills. He denies dysuria or hematuria. He states he had knee replacement earlier this year and occasionally has swelling of his legs. No other changes. He denies NSAID use. No tobacco use in over 5 years. Home Medications Medication Instructions Recorded Confirmed Type Ascorbic Acid [Vitamin C] 500 mg PO DAILY 05/16/16 10/05/16 History Carvedilol [Coreg] 25 mg PO BID 05/16/16 10/05/16 History Furosemide Tab [Lasix Tab] 40 mg PO DAILY 05/16/16 10/05/16 History Multivit-Min/FA/Lycopen/Lutein 1 tablet PO DAILY 05/16/16 10/05/16 History [Centrum Silver Ultra Men's Tab] NIFEdipine XL TAB [Procardia Xl] 30 mg PO BEDTIME 05/16/16 10/05/16 History Simvastatin [Zocor] 20 mg PO BEDTIME 05/16/16 10/05/16 History Tamsulosin [Flomax] 0.4 mg PO DAILY 05/16/16 10/06/16 History Aspirin Chew Tab 81 mg PO DAILY 09/01/16 10/05/16 History Furosemide Tab [Lasix Tab] 40 mg PO BID #60 tablet 09/01/16 10/05/16 Rx Losartan Potassium 100 mg PO DAILY 09/01/16 10/05/16 History Allergies Allergy/AdvReac Type Severity Reaction Status Date / Time No Known Allergies Allergy Verified 05/16/16 13:06 Medical,Surgical,& Family Hx - Medical History Cardio: History of: CHF, Hypertension (medication), Pacemaker (january 2012, single chamber ICD) No history of: CAD, Valvular Heart Disease Psychological: No history of: Previous Suicide Attempt Neurology: No history of: Seizures HEENT: History of: Dental Problems (partial upper) Renal: History of: Renal Failure (Chronic renal failure), Renal Problems ( kidney biopsy 12 years ago) - Surgical History Cardiac Surgeries: Sugical HX of: Cardiac Catheterization (2009 and 2011), Internal Defibrillator (01/15/12) HEENT Surgeries: Surgical HX of: Thyroid Surgery (right) Orthopedic Surgeries: Surgical HX of;: Total Knee Replacement (left 05/23) - Family History Family History: Reports;: Family Hypertension (mother) - Social History Smoking Status: Former smoker Frequency of Alcohol Use: None Type of Drug Use: None Review of Systems Constitutional: no anorexia, no chills Nose, mouth and throat: no dysphagia Cardiovascular: no chest pain at rest Respiratory: dyspnea, no hemoptysis Genitourinary: no difficulty urinating, no flank pain Exam - Vital Signs Vital signs: Period Temp Pulse Resp BP Sys/Reyes Pulse Ox Last 24 Hr 97.9 F-99.5 F 60-90 10-23 118-168/78-113 97-100 - General Appearance General appearance: well-developed, well-nourished EENT: ATNC Neck: supple Respiratory: clear Cardiology: regular rate, regular rhythm Gastrointestinal: normoactive bowel sounds, no tenderness, no guarding Neurologic: alert and oriented x3 Musculoskeletal: no deformities Psychiatric: mood/affect appropriate Results - Labs CBC & BMP: 10/07/16 03:01 10/07/16 03:01 Assessment and Plan (1) Hypertension Status: Chronic Current Visit: Yes Qualifiers: Hypertension type: essential hypertension Qualified Code(s): I10 - Essential (primary) hypertension (2) NICM (nonischemic cardiomyopathy) Status: Chronic Assessment and plan: Followed by cardiology. Patient has history of a pacemaker placement. Current Visit: Yes (3) CRI (chronic renal insufficiency) Status: Chronic Assessment and plan: Avoid nephrotoxic agents. No NSAID medications. Will continue to follow with you. Current Visit: Yes Qualifiers: Chronic kidney disease stage: stage 4 (severe) Qualified Code(s): N18.4 - Chronic kidney disease, stage 4 (severe) (4) Dyslipidemia Status: Chronic Current Visit: No (5) Osteoarthritis of left knee Status: Acute Current Visit: No (6) CKD (chronic kidney disease) stage 4, GFR 15-29 ml/min Status: Chronic Current Visit: Yes
[2016-10-07] MEDS: SIMVASTATIN 20 MG TABLET PO SCH (20:50)
[2016-10-08] MEDS: HEPARIN DRIP 25,000 UNITS/500 ML PREMIX IV SCH ×2 (02:03→21:18)
[2016-10-08 05:17] LABS: Basophils % 0.5 % (0.0-0.8); Eosinophils # 0.2 10*3/uL (0.0-0.87); Eosinophils % 2.5 % (0.00-10.9); Hematocrit 37.8 VOL% (42.0-52.0); Hemoglobin 12.4 GM/DL (14.0-18.0); Immature Granulocytes % 0.2 %; Immature Granulocytes Absolute 0.01 #; Lymphocytes % 46.4 % (21.2-54.2); Mean Corpuscular HGB Conc 32.8 GM/DL (32-36); Mean Corpuscular Hemoglobin 28 PG (27-34); Mean Platelet Volume 11.7 FL (9.6-12.0); Monocytes # 0.6 10*3/uL (0.11-0.8); Monocytes % 8.5 % (1.7-12.7); Neutrophils # 2.7 10*3/uL (1.4-7.4); Neutrophils % 41.9 % (38.7-73.9); Platelet Count 142 T/CUMM (130-400); Red Cell Distribution Width 14.4 % (9.3-17.3); White Blood Count 6.5 T/CUMM (4-12)
[2016-10-08 06:29] LABS: Magnesium 2.3 MG/DL (1.8-2.4); Osmolality,Calculated 291.4 MOS/KG (273-304)
[2016-10-08] MEDS ORDERED: ASPIRIN CHEW 81 MG TABLET PO SCH (09:00)
[2016-10-08] MEDS: LOSARTAN 50 MG TABLET PO SCH (09:09)
[2016-10-08] MEDS: MULTIVITAMIN (CENTRUM) TABLET PO SCH (09:10)
[2016-10-08] MEDS: ASPIRIN CHEW 81 MG TABLET PO SCH (09:10)
[2016-10-08] MEDS: ASCORBIC ACID 500 MG TABLET PO SCH (09:10)
[2016-10-08] MEDS: CARVEDILOL 6.25 MG TABLET PO SCH ×2 (09:10→21:19)
[2016-10-08] MEDS: PANTOPRAZOLE 40 MG TABLET PO SCH (09:11)
[2016-10-08] MEDS: TAMSULOSIN 0.4 MG CAPSULE PO SCH (09:11)
[2016-10-08] MEDS: FUROSEMIDE 40 MG/4 ML VIAL IV SCH ×2 (09:12→16:19)
--- NOTE | 2016-10-08 11:17 | Hospitalist Progress Note ---
Assessment and Plan (1) NICM (nonischemic cardiomyopathy) Status: Chronic Assessment and plan: Severely reduced LV systolic function with global hypokinesis, ejection fraction estimated at 20-25%. Continue diuresis. Start anticoagulation with Coumadin in conjunction with heparin Current Visit: Yes (2) Hypertension Status: Chronic Current Visit: Yes Qualifiers: Hypertension type: essential hypertension Qualified Code(s): I10 - Essential (primary) hypertension (3) Acute dyspnea Status: Acute Assessment and plan: Consideration given to possible pulmonary embolism. Unable to perform CT due to renal function. VQ scan shows intermediate probability. Patient with atrial fibrillation and likely lead long-term coagulation with Coumadin therefore no change in management due to his requirement for anticoagulation for other diagnosis. Current Visit: Yes (4) ICD (implantable cardioverter-defibrillator) in place Status: Chronic Current Visit: Yes (5) Atrial fibrillation Status: Acute Assessment and plan: rate controlled. cardiology following. Start Coumadin in conjunction with heparin Current Visit: Yes Qualifiers: Atrial fibrillation type: paroxysmal Qualified Code(s): I48.0 - Paroxysmal atrial fibrillation (6) CKD (chronic kidney disease) stage 4, GFR 15-29 ml/min Status: Chronic Current Visit: Yes Hospitalist: Subjective Interval history: Patient seen and examined. No acute events overnight. Case discussed with nursing staff. Labs reviewed. Reports a restless night. Had episodes of shortness of breath overnight. Echocardiogram reviewed showing Severely reduced LV systolic function with global hypokinesis, ejection fraction estimated at 20-25%. Diastolic parameters are indeterminate due to underlying atrial fibrillation. Exam - Constitutional Vitals: Period Temp Pulse Resp BP Sys/Reyes Pulse Ox Last 24 Hr 97.9 F-98.5 F 59-78 16-20 125-154/71-99 95-99 Exam: Constitutional System: No distress. No tremulousness. Head: Normocephalic, atraumatic. Ears, Nose and Throat System: No pain or tenderness. No epistaxis or discharge Eyes System: Pupils equal, round, and reactive. Extraocular muscles intact. Neck: Supple, without adenopathy, No jugular venous distention. No thyromegaly, neck mass, or prior surgery apparent. Respiratory System: Chest clear to auscultation. Cardiovascular System: Heart with regular rate and rhythm. GI System: Abdomen soft, nontender. Normo active bowel sounds present. Musculoskeletal System: limbs with no pedal edema. Full distal pulses. Neurological System: No discernable sensory deficit. No aphasia Psychiatric System: Conversation is rational Results - Labs CBC & BMP: 10/08/16 04:17 10/08/16 04:17 Lab Results: I have reviewed the past 24 hour labs Quality Measures - Stroke Symptom Onset Unknown: No
--- NOTE | 2016-10-08 11:50 | Cardiology Progress Note ---
<Aruna García E - Last Filed: 10/08/16 11:54> Assessment and Plan - Time spent with patient Time spent with patient: Greater than 30 minutes (1) ICD (implantable cardioverter-defibrillator) in place Status: Chronic Assessment and plan: SEE PLAN OF CARE LISTED BELOW Current Visit: Yes (2) Hypertension Status: Chronic Assessment and plan: SEE PLAN OF CARE LISTED BELOW Current Visit: Yes Qualifiers: Hypertension type: essential hypertension Qualified Code(s): I10 - Essential (primary) hypertension (3) NICM (nonischemic cardiomyopathy) Status: Chronic Assessment and plan: SEE PLAN OF CARE LISTED BELOW Current Visit: Yes (4) CHF (congestive heart failure) Status: Acute Assessment and plan: SEE PLAN OF CARE LISTED BELOW Current Visit: Yes Qualifiers: Congestive heart failure type: combined Congestive heart failure chronicity : acute on chronic Qualified Code(s): I50.43 - Acute on chronic combined systolic (congestive) and diastolic (congestive) heart failure (5) CRI (chronic renal insufficiency) Status: Chronic Assessment and plan: SEE PLAN OF CARE LISTED BELOW Current Visit: Yes Qualifiers: Chronic kidney disease stage: stage 4 (severe) Qualified Code(s): N18.4 - Chronic kidney disease, stage 4 (severe) (6) Dyslipidemia Status: Chronic Assessment and plan: SEE PLAN OF CARE LISTED BELOW Current Visit: No (7) Atrial fibrillation Status: Acute Assessment and plan: SEE PLAN OF CARE LISTED BELOW Current Visit: Yes Qualifiers: Atrial fibrillation type: paroxysmal Qualified Code(s): I48.0 - Paroxysmal atrial fibrillation (8) NSVT (nonsustained ventricular tachycardia) Status: Acute Assessment and plan: See plan of care listed below Current Visit: Yes Cardiology - PN: Subj Interval history: LEASING MANAGER: DR. MISHRA SUMMARY: Mr. Arevalo, 66BM, with history of hypertension, dyslipidemia, severe dilated cardiomyopathy, congestive heart failure, internal cardiac defibrillator and chronic renal insufficiency. His cardiomyopathy has been present since 2009 ([facility] in [id number]), now S/P ICD implantation 2011. September 03, 2016 echocardiogram: EF 35%, no significant valvular abnormality. PAP 36mmHg. [facility] 01/16/2012: no significant CAD, EF25%-30%. Recent Lexiscan stress test: July 04, 2014: No evidence of reversible ischemia, EF 47%. Admitted October 05, 2016 with complaints of SOB. Diagnosed with acute on chronic CHF. VQ lung scan revealed intermediate probability for PE. He has been maintained on Heparin IV. New diagnosis of atrial fibrillation during this admission. ICD was interrogated and found to be working appropriately. There was concern about possible profound bradycardia or heart block however, it was determined he has a very small QRS complex which may appear as a P-wave at times. Beta-blockade has been reinitiated due to his recent significant ventricular ectopy, which has improved. Troponins mildly elevated in the setting of CKD, but remained flat. This is not FL. OCTOBER 07, 2016: Patient seems to have diuresed well since admission, as his weight is down approximately 4 kg. This morning, he is breathing much more comfortably. Occasionally, he does have inspiratory pain in the left upper abdominal area with deep inspiration but this is improving as well. Denies hemoptysis. Ectopy has improved. Tolerating beta-blockade, ARB without problems. Patient will require formal anticoagulation prior to discharge given his new diagnosis of atrial fibrillation and possible PTE. Will further discuss with Dr. Chandra and await additional recommendations. OCTOBER 08, 2016: After discussing with the patient in length this morning, patient's ICD was placed 2009 in [place], [place]. The patient does have a known nonischemic cardiomyopathy, it sounds as if he may have had ventricular arrhythmia causing him to have an urgent ICD placed in the past. Upon interrogation of his ICD this week, he has been found to have a new onset of atrial fibrillation. Also, patient reports that he had left total knee replacement in May 2016 and did have a significant amount of swelling post surgery. Though he is 4 months out from his surgery, could possibly be etiology of the PE. He continues on IV heparin and today we will start Coumadin. He did require oxygen during the night. Though he is constipated he feels as if he is ready to have bowel movement this morning. He has not been ambulating much and I think it safe to do so at this point. Continue with aspirin, beta-geena, ARB and lipid-lowering agent. Will further discuss with Dr. Chandra and await additional recommendations. ASSESSMENT/PLAN: 1. SOB - multifactorial to include PE, acute on chronic CHF. Continue current plan of care 2. ABNORMAL VQ LUNG SCAN - currently on IV Heparin. Moderate probability of PE. Heparin until INR 2.0. Continue current plan of care 3. ACUTE ON CHRONIC CHF - secondary to combined systolic dysfunction (EF 20-25 %) and diastolic dysfunction. NYHA Class III. 4. HYPERTENSION - will adjust medications accordingly during the hospital stay. 5. DYSLIPIDEMIA - fasting lipid profile in the morning. Stop Simvastatin and transition to Crestor. 6. CKD, STAGE IV - Dr. Fonseca managing. Currently on Losartan, home medication. Will continue unless Dr. Fonseca believes we should discontinue. 7. NICM, EF 20-25% - continue beta-geena, ARB. 8. ELEVATED TROPONIN - though elevated, remains flat. Not FL. CPK and CK-MB within normal limits. 9. ATRIAL FIBRILLATION - New diagnosis. TERENCE VASC SCORE 2. Currently rate controlled, IV Heparin continues. Will benefit from Warfarin which has now been ordered. 10. S/P ICD - interrogated and found to be working appropriately. 11. NSVT - short run last evening. Contnue to monitor and treat electrolyte abnormalities. Exam (Progress Note) - Constitutional Vitals: Period Temp Pulse Resp BP Sys/Reyes Pulse Ox Last 24 Hr 97.7 F-98.5 F 59-78 16-20 125-154/71-99 95-99 Exam: General: [Appears well with no apparent distress.] [Pleasant and cooperative. ] [Appears comfortable.] HEENT: [Bilateral arcus, normocephalic, atraumatic. Mucous membranes moist. No jaundice noted. Conjunctiva moist and clear, sclerae anicteric] Neck: No JVD/HJR, no thyromegaly or lymphadenopathy noted. No carotid bruit appreciated Cardiac: [Regular rate and rhythm.] [No murmur rub or gallop.] Lungs: [Scant crackles in the bases posteriorly, improved with cough. No wheezing. Not requiring oxygen at this time. Abdomen: Soft, bowel sounds normoactive. Nontender and nondistended. No abdominal bruit or thrill noted. No masses noted. Musculoskeletal: No fluid collection. Decreased range of motion is noted. Extremities: No clubbing, cyanosis noted. [ Trace BLE edema noted.] Upper extremity pulses 2+. Lower extremity pulses 1+. Capillary refill less than 3 seconds. Skin: No unusual lesions or rashes. No skin breakdown appreciated. Neuro: Awake, alert and oriented 3. Moves all extremities well without hemiparesis or paralysis. No essential tremor is appreciated. Result/EKG - Labs CBC & BMP: 10/08/16 04:17 10/08/16 04:17 Lab Results: I have reviewed the past 24 hour labs Labs: Laboratory Results - last 24 hr 10/07/16 10/07/16 10/08/16 15:21 22:29 04:17 WBC 6.5 D RBC 4.50 Hgb 12.4 L Hct 37.8 L MCV 84.0 L MCH 28 MCHC 32.8 RDW 14.4 Plt Count 142 MPV 11.7 Neut % (Auto) 41.9 Lymph % (Auto) 46.4 [place] % (Auto) 8.5 Eos % (Auto) 2.5 Baso % (Auto) 0.5 Neut # (Auto) 2.7 Lymph # (Auto) 3.0 [place] # (Auto) 0.6 Eos # (Auto) 0.2 Baso # (Auto) 0.0 Immature Gran % 0.2 Nucleated RBC % 0.0 Immature Gran # 0.01 Nucleated RBCs # 0.00 Immature Plt Fraction 0.0 Circ Anticoag PTT 64.6 H 121.6 H* D Sodium Potassium Chloride Carbon Dioxide Anion Gap BUN Creatinine GFR Calculation BUN/Creatinine Ratio Glucose Calculated Osmolality Calcium Magnesium 10/08/16 10/08/16 04:17 04:17 WBC RBC Hgb Hct MCV MCH MCHC RDW Plt Count MPV Neut % (Auto) Lymph % (Auto) [place] % (Auto) Eos % (Auto) Baso % (Auto) Neut # (Auto) Lymph # (Auto) [place] # (Auto) Eos # (Auto) Baso # (Auto) Immature Gran % Nucleated RBC % Immature Gran # Nucleated RBCs # Immature Plt Fraction Circ Anticoag PTT 137.5 H* Sodium 140 Potassium 4.0 Chloride 106 Carbon Dioxide 24 Anion Gap 14.0 BUN 50 H Creatinine 4.00 H GFR Calculation 20 BUN/Creatinine Ratio 12.00 Glucose 94 Calculated Osmolality 291.4 Calcium 9.0 Magnesium 2.3 - EKG EKG results: interpreted by me Quality Measures - Stroke Symptom Onset Unknown: No <Melina Chandra - Last Filed: 10/08/16 17:04> Cardiology - PN: Subj Interval history: I have personally interviewed and evaluated the patient, reviewed the chart and discussed medical decision-making with Practitioner Raquel. I have read this note and agree with her documentation here in. Exam (Progress Note) - Constitutional Vitals: Period Temp Pulse Resp BP Sys/Reyes Pulse Ox Last 24 Hr 97.7 F-98.7 F 59-78 16-20 125-154/71-96 95-99 Result/EKG - Labs CBC & BMP: 10/08/16 04:17 10/08/16 04:17 Labs: Laboratory Results - last 24 hr 10/07/16 10/08/16 10/08/16 22:29 04:17 04:17 WBC 6.5 D RBC 4.50 Hgb 12.4 L Hct 37.8 L MCV 84.0 L MCH 28 MCHC 32.8 RDW 14.4 Plt Count 142 MPV 11.7 Neut % (Auto) 41.9 Lymph % (Auto) 46.4 [place] % (Auto) 8.5 Eos % (Auto) 2.5 Baso % (Auto) 0.5 Neut # (Auto) 2.7 Lymph # (Auto) 3.0 [place] # (Auto) 0.6 Eos # (Auto) 0.2 Baso # (Auto) 0.0 Immature Gran % 0.2 Nucleated RBC % 0.0 Immature Gran # 0.01 Nucleated RBCs # 0.00 Immature Plt Fraction 0.0 Circ Anticoag PTT 121.6 H* D Sodium 140 Potassium 4.0 Chloride 106 Carbon Dioxide 24 Anion Gap 14.0 BUN 50 H Creatinine 4.00 H GFR Calculation 20 BUN/Creatinine Ratio 12.00 Glucose 94 Calculated Osmolality 291.4 Calcium 9.0 Magnesium 2.3 10/08/16 10/08/16 04:17 13:37 WBC RBC Hgb Hct MCV MCH MCHC RDW Plt Count MPV Neut % (Auto) Lymph % (Auto) [place] % (Auto) Eos % (Auto) Baso % (Auto) Neut # (Auto) Lymph # (Auto) [place] # (Auto) Eos # (Auto) Baso # (Auto) Immature Gran % Nucleated RBC % Immature Gran # Nucleated RBCs # Immature Plt Fraction Circ Anticoag PTT 137.5 H* 83.0 H D Sodium Potassium Chloride Carbon Dioxide Anion Gap BUN Creatinine GFR Calculation BUN/Creatinine Ratio Glucose Calculated Osmolality Calcium Magnesium
[2016-10-08] MEDS: WARFARIN 5 MG TABLET PO SCH (18:47)
--- NOTE | 2016-10-08 19:10 | Nephrology Progress Note ---
Nephrology - PN: Subj Interval history: Patient is resting comfortably no acute changes. Serum creatinine is noted to be 4.0. No shortness of breath or chest pain. Patient is starting on Coumadin therapy tonight. Will get a BMP in a.m. Still waiting for further records of kidney biopsy that was done in [place]. Feel that this patient has underlying chronic kidney disease and his creatinine is more closely to his baseline. Exam (PN)-Nephrology - Vital Signs Vital signs: Period Temp Pulse Resp BP Sys/Reyes Pulse Ox Last 24 Hr 97.7 F-98.7 F 59-73 16-20 125-153/71-96 95-99 - General Appearance General appearance: well-developed, well-nourished EENT: ATNC Neck: supple Respiratory: clear Cardiology: no edema, regular rate, regular rhythm Gastrointestinal: normoactive bowel sounds, no tenderness Neurologic: alert and oriented x3 Musculoskeletal: no clubbing Psychiatric: mood/affect appropriate - Lab 10/08/16 04:17 10/08/16 04:17 Most recent lab results Calcium 9.0 MG/DL (8.5-10.1) 10/08/16 04:17 Magnesium 2.3 MG/DL (1.8-2.4) 10/08/16 04:17 Assessment and Plan (1) Hypertension Status: Chronic Current Visit: Yes Qualifiers: Hypertension type: essential hypertension Qualified Code(s): I10 - Essential (primary) hypertension (2) NICM (nonischemic cardiomyopathy) Status: Chronic Assessment and plan: Followed by cardiology. Patient has history of a pacemaker placement. Current Visit: Yes (3) CRI (chronic renal insufficiency) Status: Chronic Assessment and plan: Avoid nephrotoxic agents. No NSAID medications. Will continue to follow with you. Current Visit: Yes Qualifiers: Chronic kidney disease stage: stage 4 (severe) Qualified Code(s): N18.4 - Chronic kidney disease, stage 4 (severe) (4) Dyslipidemia Status: Chronic Current Visit: No (5) Osteoarthritis of left knee Status: Acute Current Visit: No (6) CKD (chronic kidney disease) stage 4, GFR 15-29 ml/min Status: Chronic Current Visit: Yes
[2016-10-08] MEDS: ROSUVASTATIN 10 MG TABLET PO SCH (21:18)
[2016-10-09 04:45] LABS: Basophils % 0.3 % (0.0-0.8); Eosinophils # 0.2 10*3/uL (0.0-0.87); Eosinophils % 3.6 % (0.00-10.9); Hematocrit 38.9 VOL% (42.0-52.0); Hemoglobin 12.8 GM/DL (14.0-18.0); Immature Granulocytes % 0.3 %; Immature Granulocytes Absolute 0.02 #; Lymphocytes # 2.5 10*3/uL (1.4-4.0); Lymphocytes % 39.8 % (21.2-54.2); Mean Corpuscular HGB Conc 32.9 GM/DL (32-36); Mean Corpuscular Hemoglobin 28 PG (27-34); Mean Corpuscular Volume 83.7 FL (87-102); Mean Platelet Volume 11.7 FL (9.6-12.0); Monocytes # 0.6 10*3/uL (0.11-0.8); Neutrophils # 2.9 10*3/uL (1.4-7.4); Platelet Count 145 T/CUMM (130-400); Red Blood Count 4.65 MC/CUMM (3.8-5.5); Red Cell Distribution Width 14.2 % (9.3-17.3); White Blood Count 6.4 T/CUMM (4-12)
[2016-10-09 05:44] LABS: INR 1.1
[2016-10-09 05:53] LABS: Calcium 8.7 MG/DL (8.5-10.1); Magnesium 2.3 MG/DL (1.8-2.4); Osmolality,Calculated 293.4 MOS/KG (273-304); Potassium 3.9 MMOL/L (3.5-5.1)
[2016-10-09] MEDS: ASCORBIC ACID 500 MG TABLET PO SCH (09:29)
[2016-10-09] MEDS: TAMSULOSIN 0.4 MG CAPSULE PO SCH (09:29)
[2016-10-09] MEDS: LOSARTAN 50 MG TABLET PO SCH (09:29)
[2016-10-09] MEDS: CARVEDILOL 6.25 MG TABLET PO SCH ×2 (09:30→21:02)
[2016-10-09] MEDS: PANTOPRAZOLE 40 MG TABLET PO SCH (09:30)
[2016-10-09] MEDS: MULTIVITAMIN (CENTRUM) TABLET PO SCH (09:30)
[2016-10-09] MEDS: ASPIRIN CHEW 81 MG TABLET PO SCH (09:30)
[2016-10-09] MEDS: FUROSEMIDE 40 MG/4 ML VIAL IV SCH ×2 (09:31→16:37)
--- NOTE | 2016-10-09 11:21 | Hospitalist Progress Note ---
Assessment and Plan (1) NICM (nonischemic cardiomyopathy) Status: Chronic Assessment and plan: Severely reduced LV systolic function with global hypokinesis, ejection fraction estimated at 20-25%. Continue Coumadin and heparin until INR 2-3. Current Visit: Yes (2) Hypertension Status: Chronic Current Visit: Yes Qualifiers: Hypertension type: essential hypertension Qualified Code(s): I10 - Essential (primary) hypertension (3) Acute dyspnea Status: Resolved Assessment and plan: Consideration given to possible pulmonary embolism. Unable to perform CT due to renal function. VQ scan shows intermediate probability. Patient with atrial fibrillation and likely lead long-term coagulation with Coumadin therefore no change in management due to his requirement for anticoagulation for other diagnosis. Current Visit: Yes (4) ICD (implantable cardioverter-defibrillator) in place Status: Chronic Current Visit: Yes (5) Atrial fibrillation Status: Acute Assessment and plan: rate controlled. cardiology following. Start Coumadin in conjunction with heparin Current Visit: Yes Qualifiers: Atrial fibrillation type: paroxysmal Qualified Code(s): I48.0 - Paroxysmal atrial fibrillation (6) CKD (chronic kidney disease) stage 4, GFR 15-29 ml/min Status: Chronic Current Visit: Yes Hospitalist: Subjective Interval history: Patient seen and examined. No acute events overnight. Case discussed with nursing staff. Labs reviewed. Coumadin initiated last night. INR 1.1. Receiving heparin drip. Creatinine stable. On Lasix 40 IV twice daily. Nephrology and cardiology following. Exam - Constitutional Vitals: Period Temp Pulse Resp BP Sys/Reyes Pulse Ox Last 24 Hr 97.7 F-98.7 F 61-66 16-20 131-161/70-98 98-99 Exam: Constitutional System: No distress. No tremulousness. Head: Normocephalic, atraumatic. Ears, Nose and Throat System: No pain or tenderness. No epistaxis or discharge Eyes System: Pupils equal, round, and reactive. Extraocular muscles intact. Neck: Supple, without adenopathy, No jugular venous distention. No thyromegaly, neck mass, or prior surgery apparent. Respiratory System: Chest clear to auscultation. Cardiovascular System: Heart with regular rate and rhythm. GI System: Abdomen soft, nontender. Normo active bowel sounds present. Musculoskeletal System: limbs with no pedal edema. Full distal pulses. Neurological System: No discernable sensory deficit. No aphasia Psychiatric System: Conversation is rational Results - Labs CBC & BMP: 10/09/16 04:05 10/09/16 04:05 Lab Results: I have reviewed the past 24 hour labs Quality Measures - Stroke Symptom Onset Unknown: No
--- NOTE | 2016-10-09 14:03 | Cardiology Progress Note ---
<Aruna García E - Last Filed: 10/09/16 13:56> Assessment and Plan - Time spent with patient Time spent with patient: Greater than 30 minutes (1) ICD (implantable cardioverter-defibrillator) in place Status: Chronic Assessment and plan: SEE PLAN OF CARE LISTED BELOW Current Visit: Yes (2) Hypertension Status: Chronic Assessment and plan: SEE PLAN OF CARE LISTED BELOW Current Visit: Yes Qualifiers: Hypertension type: essential hypertension Qualified Code(s): I10 - Essential (primary) hypertension (3) NICM (nonischemic cardiomyopathy) Status: Chronic Assessment and plan: SEE PLAN OF CARE LISTED BELOW Current Visit: Yes (4) CHF (congestive heart failure) Status: Acute Assessment and plan: SEE PLAN OF CARE LISTED BELOW Current Visit: Yes Qualifiers: Congestive heart failure type: combined Congestive heart failure chronicity : acute on chronic Qualified Code(s): I50.43 - Acute on chronic combined systolic (congestive) and diastolic (congestive) heart failure (5) CRI (chronic renal insufficiency) Status: Chronic Assessment and plan: SEE PLAN OF CARE LISTED BELOW Current Visit: Yes Qualifiers: Chronic kidney disease stage: stage 4 (severe) Qualified Code(s): N18.4 - Chronic kidney disease, stage 4 (severe) (6) Dyslipidemia Status: Chronic Assessment and plan: SEE PLAN OF CARE LISTED BELOW Current Visit: No (7) Atrial fibrillation Status: Acute Assessment and plan: SEE PLAN OF CARE LISTED BELOW Current Visit: Yes Qualifiers: Atrial fibrillation type: paroxysmal Qualified Code(s): I48.0 - Paroxysmal atrial fibrillation (8) NSVT (nonsustained ventricular tachycardia) Status: Acute Assessment and plan: See plan of care listed below Current Visit: Yes Cardiology - PN: Subj Interval history: FREIGHT FORWARDER: DR. MISHRA SUMMARY: Mr. Arevalo, 66BM, with history of hypertension, dyslipidemia, severe dilated cardiomyopathy, congestive heart failure, internal cardiac defibrillator and chronic renal insufficiency. His cardiomyopathy has been present since 2009 ([facility] in [id number]), now S/P ICD implantation 2011. September 03, 2016 echocardiogram: EF 35%, no significant valvular abnormality. PAP 36mmHg. [facility] 01/16/2012: no significant CAD, EF25%-30%. Recent Lexiscan stress test: July 04, 2014: No evidence of reversible ischemia, EF 47%. Admitted October 05, 2016 with complaints of SOB. Diagnosed with acute on chronic CHF. VQ lung scan revealed intermediate probability for PE. He has been maintained on Heparin IV. New diagnosis of atrial fibrillation during this admission. ICD was interrogated and found to be working appropriately. There was concern about possible profound bradycardia or heart block however, it was determined he has a very small QRS complex which may appear as a P-wave at times. Beta-blockade has been reinitiated due to his recent significant ventricular ectopy, which has improved. Troponins mildly elevated in the setting of CKD, but remained flat. This is not MA. OCTOBER 07, 2016: Patient seems to have diuresed well since admission, as his weight is down approximately 4 kg. This morning, he is breathing much more comfortably. Occasionally, he does have inspiratory pain in the left upper abdominal area with deep inspiration but this is improving as well. Denies hemoptysis. Ectopy has improved. Tolerating beta-blockade, ARB without problems. Patient will require formal anticoagulation prior to discharge given his new diagnosis of atrial fibrillation and possible PTE. Will further discuss with Dr. Chandra and await additional recommendations. OCTOBER 08, 2016: After discussing with the patient in length this morning, patient's ICD was placed 2009 in [place], [place]. The patient does have a known nonischemic cardiomyopathy, it sounds as if he may have had ventricular arrhythmia causing him to have an urgent ICD placed in the past. Upon interrogation of his ICD this week, he has been found to have a new onset of atrial fibrillation. Also, patient reports that he had left total knee replacement in May 2016 and did have a significant amount of swelling post surgery. Though he is 4 months out from his surgery, could possibly be etiology of the PE. He continues on IV heparin and today we will start Coumadin. He did require oxygen during the night. Though he is constipated he feels as if he is ready to have bowel movement this morning. He has not been ambulating much and I think it safe to do so at this point. Continue with aspirin, beta-geena, ARB and lipid-lowering agent. Will further discuss with Dr. Chandra and await additional recommendations. OCTOBER 09, 2016: Continues to do well. Coumadin was initiated yesterday. Will continue to cover with IV heparin until INR therapeutic. No complaints of chest pain. Does still have some shortness of breath. Feels as if he is slowly progressing. No additional atrial fibrillation overnight but several episodes of short runs of NSVT, PVCs noted. Blood pressure will tolerate increasing beta-blockade and I will do so today. Continue to follow labs. Will further discuss with Dr. Melina Chandra and await additional recommendations. ASSESSMENT/PLAN: 1. SOB - multifactorial to include PE, acute on chronic CHF. Continue current plan of care 2. ABNORMAL VQ LUNG SCAN - currently on IV Heparin. Moderate probability of PE. Heparin until INR 2.0. Now on Coumadin. Continue current plan of care 3. ACUTE ON CHRONIC CHF - secondary to combined systolic dysfunction (EF 20-25 %) and diastolic dysfunction. NYHA Class II-III. Improving. 4. HYPERTENSION - Suboptimally controlled, increasing betablocker. 5. DYSLIPIDEMIA - LDL 58. Continue Crestor. 6. CKD, STAGE IV - Dr. Fonseca managing. Currently on Losartan, home medication. Will continue unless Dr. Fonseca believes we should discontinue. 7. NICM, EF 20-25% - continue beta-geena, ARB. 8. ELEVATED TROPONIN - though elevated, remains flat. Not MA. CPK and CK-MB within normal limits. 9. ATRIAL FIBRILLATION - New diagnosis. TERENCE VASC SCORE 2. Currently rate controlled, IV Heparin continues. Will benefit from Warfarin which has now been ordered. 10. S/P ICD - interrogated and found to be working appropriately. 11. NSVT - short run last evening. Contnue to monitor and treat electrolyte abnormalities. Exam (Progress Note) - Constitutional Vitals: Period Temp Pulse Resp BP Sys/Reyes Pulse Ox Last 24 Hr 97.0 F-98.7 F 61-66 16-20 131-161/70-98 98-99 Exam: General: [Appears well with no apparent distress.] [Pleasant and cooperative. ] [Appears comfortable.] HEENT: [Bilateral arcus, normocephalic, atraumatic. Mucous membranes moist. No jaundice noted. Conjunctiva moist and clear, sclerae anicteric] Neck: No JVD/HJR, no thyromegaly or lymphadenopathy noted. No carotid bruit appreciated Cardiac: [Regular rate and rhythm.] [No murmur rub or gallop.] Lungs: [Scant crackles in the bases posteriorly, improved with cough. No wheezing. Not requiring oxygen at this time. Abdomen: Soft, bowel sounds normoactive. Nontender and nondistended. No abdominal bruit or thrill noted. No masses noted. Musculoskeletal: No fluid collection. Decreased range of motion is noted. Extremities: No clubbing, cyanosis noted. [ Trace BLE edema noted.] Upper extremity pulses 2+. Lower extremity pulses 1+. Capillary refill less than 3 seconds. Skin: No unusual lesions or rashes. No skin breakdown appreciated. Neuro: Awake, alert and oriented 3. Moves all extremities well without hemiparesis or paralysis. No essential tremor is appreciated. Result/EKG - Labs CBC & BMP: 10/09/16 04:05 10/09/16 04:05 Lab Results: I have reviewed the past 24 hour labs Labs: Laboratory Results - last 24 hr 10/08/16 10/08/16 10/09/16 13:37 20:16 04:05 WBC 6.4 RBC 4.65 Hgb 12.8 L Hct 38.9 L MCV 83.7 L MCH 28 MCHC 32.9 RDW 14.2 Plt Count 145 MPV 11.7 Neut % (Auto) 46.0 Lymph % (Auto) 39.8 Hernando % (Auto) 10.0 Eos % (Auto) 3.6 Baso % (Auto) 0.3 Neut # (Auto) 2.9 Lymph # (Auto) 2.5 Hernando # (Auto) 0.6 Eos # (Auto) 0.2 Baso # (Auto) 0.0 Immature Gran % 0.3 Nucleated RBC % 0.0 Immature Gran # 0.02 Nucleated RBCs # 0.00 Immature Plt Fraction 0.0 INR PT Patient/Control Mix Circ Anticoag PTT 83.0 H D 70.0 H Sodium Potassium Chloride Carbon Dioxide Anion Gap BUN Creatinine GFR Calculation BUN/Creatinine Ratio Glucose Calculated Osmolality Calcium Magnesium 10/09/16 10/09/16 04:05 04:05 WBC RBC Hgb Hct MCV MCH MCHC RDW Plt Count MPV Neut % (Auto) Lymph % (Auto) Hernando % (Auto) Eos % (Auto) Baso % (Auto) Neut # (Auto) Lymph # (Auto) Hernando # (Auto) Eos # (Auto) Baso # (Auto) Immature Gran % Nucleated RBC % Immature Gran # Nucleated RBCs # Immature Plt Fraction INR 1.1 PT Patient/Control Mix 12.0 Circ Anticoag PTT Sodium 140 Potassium 3.9 Chloride 105 Carbon Dioxide 24 Anion Gap 14.9 BUN 55 H Creatinine 3.70 H GFR Calculation 22 BUN/Creatinine Ratio 14.00 Glucose 93 Calculated Osmolality 293.4 Calcium 8.7 Magnesium 2.3 - EKG EKG results: interpreted by me EKG shows: sinus rhythm Quality Measures - Stroke Symptom Onset Unknown: No <Melina Chandra - Last Filed: 10/09/16 16:13> Cardiology - PN: Subj Interval history: I have personally interviewed and evaluated the patient, reviewed the chart and discussed medical decision-making with Practitioner Raquel. I have read this note and agree with her documentation here in. Exam (Progress Note) - Constitutional Vitals: Period Temp Pulse Resp BP Sys/Reyes Pulse Ox Last 24 Hr 97.0 F-98.5 F 61-67 16-20 131-161/70-98 98-100 Result/EKG - Labs CBC & BMP: 10/09/16 04:05 10/09/16 04:05 Labs: Laboratory Results - last 24 hr 10/08/16 10/09/16 10/09/16 20:16 04:05 04:05 WBC 6.4 RBC 4.65 Hgb 12.8 L Hct 38.9 L MCV 83.7 L MCH 28 MCHC 32.9 RDW 14.2 Plt Count 145 MPV 11.7 Neut % (Auto) 46.0 Lymph % (Auto) 39.8 Hernando % (Auto) 10.0 Eos % (Auto) 3.6 Baso % (Auto) 0.3 Neut # (Auto) 2.9 Lymph # (Auto) 2.5 Hernando # (Auto) 0.6 Eos # (Auto) 0.2 Baso # (Auto) 0.0 Immature Gran % 0.3 Nucleated RBC % 0.0 Immature Gran # 0.02 Nucleated RBCs # 0.00 Immature Plt Fraction 0.0 INR PT Patient/Control Mix Circ Anticoag PTT 70.0 H Sodium 140 Potassium 3.9 Chloride 105 Carbon Dioxide 24 Anion Gap 14.9 BUN 55 H Creatinine 3.70 H GFR Calculation 22 BUN/Creatinine Ratio 14.00 Glucose 93 Calculated Osmolality 293.4 Calcium 8.7 Magnesium 2.3 10/09/16 04:05 WBC RBC Hgb Hct MCV MCH MCHC RDW Plt Count MPV Neut % (Auto) Lymph % (Auto) Hernando % (Auto) Eos % (Auto) Baso % (Auto) Neut # (Auto) Lymph # (Auto) Hernando # (Auto) Eos # (Auto) Baso # (Auto) Immature Gran % Nucleated RBC % Immature Gran # Nucleated RBCs # Immature Plt Fraction INR 1.1 PT Patient/Control Mix 12.0 Circ Anticoag PTT Sodium Potassium Chloride Carbon Dioxide Anion Gap BUN Creatinine GFR Calculation BUN/Creatinine Ratio Glucose Calculated Osmolality Calcium Magnesium
[2016-10-09] MEDS ORDERED: CARVEDILOL 6.25 MG TABLET PO ONE (14:04)
[2016-10-09] MEDS: HEPARIN DRIP 25,000 UNITS/500 ML PREMIX IV SCH (15:16)
--- NOTE | 2016-10-09 17:06 | Nephrology Progress Note ---
Nephrology - PN: Subj Interval history: Patient is resting comfortably no acute changes. Serum creatinine is noted to be 4.0. No shortness of breath or chest pain. Patient is starting on Coumadin therapy tonight. Will get a BMP in a.m. Still waiting for further records of kidney biopsy that was done in [place]. Feel that this patient has underlying chronic kidney disease and his creatinine is more closely to his baseline. 10/09/2016 the patient is resting comfortably. He appears much more comfortable today. Patient serum creatinine was noted to be 3.7 which is trending down. No shortness of breath or chest pain. Exam (PN)-Nephrology - Vital Signs Vital signs: Period Temp Pulse Resp BP Sys/Reyes Pulse Ox Last 24 Hr 97.0 F-98.5 F 61-67 16-20 131-161/70-98 98-100 - General Appearance General appearance: well-developed, well-nourished EENT: ATNC Neck: supple Respiratory: clear Cardiology: S4 gallop, regular rate, regular rhythm Gastrointestinal: normoactive bowel sounds, no tenderness Neurologic: alert and oriented x3 Psychiatric: mood/affect appropriate - Lab 10/09/16 04:05 10/09/16 04:05 Most recent lab results Calcium 8.7 MG/DL (8.5-10.1) 10/09/16 04:05 Magnesium 2.3 MG/DL (1.8-2.4) 10/09/16 04:05 Assessment and Plan (1) Hypertension Status: Chronic Current Visit: Yes Qualifiers: Hypertension type: essential hypertension Qualified Code(s): I10 - Essential (primary) hypertension (2) NICM (nonischemic cardiomyopathy) Status: Chronic Assessment and plan: Followed by cardiology. Patient has history of a pacemaker placement. Current Visit: Yes (3) CRI (chronic renal insufficiency) Status: Chronic Assessment and plan: Avoid nephrotoxic agents. No NSAID medications. Will continue to follow with you. Current Visit: Yes Qualifiers: Chronic kidney disease stage: stage 4 (severe) Qualified Code(s): N18.4 - Chronic kidney disease, stage 4 (severe) (4) Dyslipidemia Status: Chronic Current Visit: No (5) Osteoarthritis of left knee Status: Acute Current Visit: No (6) CKD (chronic kidney disease) stage 4, GFR 15-29 ml/min Status: Chronic Current Visit: Yes Specialty Discharge - Follow Up or Referrals
[2016-10-09] MEDS: WARFARIN 5 MG TABLET PO SCH (18:57)
[2016-10-09] MEDS: ROSUVASTATIN 10 MG TABLET PO SCH (21:02)
[2016-10-09] MEDS: CARVEDILOL 12.5 MG TABLET PO SCH (21:03)
[2016-10-10] MEDS: HEPARIN DRIP 25,000 UNITS/500 ML PREMIX IV SCH (00:41)
[2016-10-10 05:20] LABS: Basophils % 0.4 % (0.0-0.8); Eosinophils # 0.3 10*3/uL (0.0-0.87); Eosinophils % 4.4 % (0.00-10.9); Hemoglobin 13.1 GM/DL (14.0-18.0); Immature Granulocytes % 0.2 %; Immature Granulocytes Absolute 0.01 #; Lymphocytes # 2.2 10*3/uL (1.4-4.0); Lymphocytes % 38.7 % (21.2-54.2); Mean Corpuscular HGB Conc 32.8 GM/DL (32-36); Mean Corpuscular Hemoglobin 27 PG (27-34); Mean Corpuscular Volume 83.3 FL (87-102); Mean Platelet Volume 11.7 FL (9.6-12.0); Monocytes # 0.5 10*3/uL (0.11-0.8); Monocytes % 9.5 % (1.7-12.7); Neutrophils # 2.7 10*3/uL (1.4-7.4); Neutrophils % 46.8 % (38.7-73.9); Platelet Count 149 T/CUMM (130-400); Red Cell Distribution Width 14.2 % (9.3-17.3); White Blood Count 5.7 T/CUMM (4-12)
[2016-10-10 05:39] LABS: INR 1.2; PT Patient Result 12.7 SECS
[2016-10-10 06:39] LABS: Magnesium 2.3 MG/DL (1.8-2.4); Osmolality,Calculated 291.7 MOS/KG (273-304); Potassium 3.8 MMOL/L (3.5-5.1)
[2016-10-10] MEDS: PANTOPRAZOLE 40 MG TABLET PO SCH (09:33)
[2016-10-10] MEDS: LOSARTAN 50 MG TABLET PO SCH (09:33)
[2016-10-10] MEDS: MULTIVITAMIN (CENTRUM) TABLET PO SCH (09:34)
[2016-10-10] MEDS: ASPIRIN CHEW 81 MG TABLET PO SCH (09:34)
[2016-10-10] MEDS: ASCORBIC ACID 500 MG TABLET PO SCH (09:34)
[2016-10-10] MEDS: CARVEDILOL 12.5 MG TABLET PO SCH (09:34)
[2016-10-10] MEDS: TAMSULOSIN 0.4 MG CAPSULE PO SCH (09:34)
[2016-10-10] MEDS: FUROSEMIDE 40 MG/4 ML VIAL IV SCH ×2 (09:35→16:56)
--- NOTE | 2016-10-10 11:36 | Cardiology Progress Note ---
<Aruna García E - Last Filed: 10/10/16 11:28> Assessment and Plan - Time spent with patient Time spent with patient: Greater than 30 minutes (1) ICD (implantable cardioverter-defibrillator) in place Status: Chronic Assessment and plan: SEE PLAN OF CARE LISTED BELOW Current Visit: Yes (2) Hypertension Status: Chronic Assessment and plan: SEE PLAN OF CARE LISTED BELOW Current Visit: Yes Qualifiers: Hypertension type: essential hypertension Qualified Code(s): I10 - Essential (primary) hypertension (3) NICM (nonischemic cardiomyopathy) Status: Chronic Assessment and plan: SEE PLAN OF CARE LISTED BELOW Current Visit: Yes (4) CHF (congestive heart failure) Status: Acute Assessment and plan: SEE PLAN OF CARE LISTED BELOW Current Visit: Yes Qualifiers: Congestive heart failure type: combined Congestive heart failure chronicity : acute on chronic Qualified Code(s): I50.43 - Acute on chronic combined systolic (congestive) and diastolic (congestive) heart failure (5) CRI (chronic renal insufficiency) Status: Chronic Assessment and plan: SEE PLAN OF CARE LISTED BELOW Current Visit: Yes Qualifiers: Chronic kidney disease stage: stage 4 (severe) Qualified Code(s): N18.4 - Chronic kidney disease, stage 4 (severe) (6) Dyslipidemia Status: Chronic Assessment and plan: SEE PLAN OF CARE LISTED BELOW Current Visit: No (7) Atrial fibrillation Status: Acute Assessment and plan: SEE PLAN OF CARE LISTED BELOW Current Visit: Yes Qualifiers: Atrial fibrillation type: paroxysmal Qualified Code(s): I48.0 - Paroxysmal atrial fibrillation (8) NSVT (nonsustained ventricular tachycardia) Status: Acute Assessment and plan: See plan of care listed below Current Visit: Yes Cardiology - PN: Subj Interval history: [facility] CONSULTANT: DR. MISHRA SUMMARY: Mr. Arevalo, 66BM, with history of hypertension, dyslipidemia, severe dilated cardiomyopathy, congestive heart failure, internal cardiac defibrillator and chronic renal insufficiency. His cardiomyopathy has been present since 2009 ([facility] in [place]2009), now S/P ICD implantation 2011. September 03, 2016 echocardiogram: EF 35%, no significant valvular abnormality. PAP 36mmHg. [facility] 01/16/2012: no significant CAD, EF25%-30%. Recent Lexiscan stress test: July 04, 2014: No evidence of reversible ischemia, EF 47%. Admitted October 05, 2016 with complaints of SOB. Diagnosed with acute on chronic CHF. VQ lung scan revealed intermediate probability for PE. He has been maintained on Heparin IV. New diagnosis of atrial fibrillation during this admission. ICD was interrogated and found to be working appropriately. There was concern about possible profound bradycardia or heart block however, it was determined he has a very small QRS complex which may appear as a P-wave at times. Beta-blockade has been reinitiated due to his recent significant ventricular ectopy, which has improved. Troponins mildly elevated in the setting of CKD, but remained flat. This is not MD. OCTOBER 07, 2016: Patient seems to have diuresed well since admission, as his weight is down approximately 4 kg. This morning, he is breathing much more comfortably. Occasionally, he does have inspiratory pain in the left upper abdominal area with deep inspiration but this is improving as well. Denies hemoptysis. Ectopy has improved. Tolerating beta-blockade, ARB without problems. Patient will require formal anticoagulation prior to discharge given his new diagnosis of atrial fibrillation and possible PTE. Will further discuss with Dr. Chandra and await additional recommendations. OCTOBER 08, 2016: After discussing with the patient in length this morning, patient's ICD was placed 2009 in [place], [place]. The patient does have a known nonischemic cardiomyopathy, it sounds as if he may have had ventricular arrhythmia causing him to have an urgent ICD placed in the past. Upon interrogation of his ICD this week, he has been found to have a new onset of atrial fibrillation. Also, patient reports that he had left total knee replacement in May 2016 and did have a significant amount of swelling post surgery. Though he is 4 months out from his surgery, could possibly be etiology of the PE. He continues on IV heparin and today we will start Coumadin. He did require oxygen during the night. Though he is constipated he feels as if he is ready to have bowel movement this morning. He has not been ambulating much and I think it safe to do so at this point. Continue with aspirin, beta-geena, ARB and lipid-lowering agent. Will further discuss with Dr. Chandra and await additional recommendations. OCTOBER 09, 2016: Continues to do well. Coumadin was initiated yesterday. Will continue to cover with IV heparin until INR therapeutic. No complaints of chest pain. Does still have some shortness of breath. Feels as if he is slowly progressing. No additional atrial fibrillation overnight but several episodes of short runs of NSVT, PVCs noted. Blood pressure will tolerate increasing beta-blockade and I will do so today. Continue to follow labs. Will further discuss with Dr. Melina Chandra and await additional recommendations. OCTOBER 10, 2016: Going well this morning without complaints. If INR has not increased tomorrow morning, we will increase his dose. Denies chest pain. Blood pressure responded well to increasing beta-geena yesterday. Systolic blood pressure averaging 130-140s. No additional runs of NSVT overnight. Will increase Coreg to 25 mg twice daily starting this evening. Continue to monitor labs. Will further discuss with Dr. Melina Chandra and await additional recommendations. ASSESSMENT/PLAN: 1. SOB - multifactorial to include PE, acute on chronic CHF. Continue current plan of care 2. ABNORMAL VQ LUNG SCAN - currently on IV Heparin. Moderate probability of PE. Heparin until INR 2.0. Now on Coumadin. Continue current plan of care 3. ACUTE ON CHRONIC CHF - secondary to combined systolic dysfunction (EF 20-25 %) and diastolic dysfunction. NYHA Class II-III. Improving. 4. HYPERTENSION - Suboptimally controlled, increasing betablocker. 5. DYSLIPIDEMIA - LDL 58. Continue Crestor. 6. CKD, STAGE IV - Dr. Fonseac managing. Currently on Losartan, home medication. Will continue unless Dr. Fonseca believes we should discontinue. 7. NICM, EF 20-25% - continue beta-geena, ARB. 8. ELEVATED TROPONIN - though elevated, remains flat. Not MD. CPK and CK-MB within normal limits. 9. ATRIAL FIBRILLATION - New diagnosis. TERENCE VASC SCORE 2. Currently rate controlled, IV Heparin continues. Continue warfarin. INR in a.m. 10. S/P ICD - interrogated and found to be working appropriately. 11. NSVT -no additional NSVT since beta-geena increased. Continue to monitor and treat electrolyte abnormalities. Exam (Progress Note) - Constitutional Vitals: Period Temp Pulse Resp BP Sys/Reyes Pulse Ox Last 24 Hr 97.0 F-98.5 F 64-69 18-20 131-160/80-95 98-100 Exam: General: [Appears well with no apparent distress.] [Pleasant and cooperative. ] [Appears comfortable.] HEENT: [Bilateral arcus, normocephalic, atraumatic. Mucous membranes moist. No jaundice noted. Conjunctiva moist and clear, sclerae anicteric] Neck: No JVD/HJR, no thyromegaly or lymphadenopathy noted. No carotid bruit appreciated Cardiac: [Regular rate and rhythm.] [No murmur rub or gallop.] Lungs: [Relatively clear. No wheezing. Not requiring oxygen at this time. Abdomen: Soft, bowel sounds normoactive. Nontender and nondistended. No abdominal bruit or thrill noted. No masses noted. Musculoskeletal: No fluid collection. Decreased range of motion is noted. Extremities: No clubbing, cyanosis noted. [ Trace BLE edema noted.] Upper extremity pulses 2+. Lower extremity pulses 1+. Capillary refill less than 3 seconds. Skin: No unusual lesions or rashes. No skin breakdown appreciated. Neuro: Awake, alert and oriented 3. Moves all extremities well without hemiparesis or paralysis. No essential tremor is appreciated. Result/EKG - Labs CBC & BMP: 10/10/16 04:42 10/10/16 04:42 Lab Results: I have reviewed the past 24 hour labs Labs: Laboratory Results - last 24 hr 10/09/16 10/10/16 10/10/16 19:20 04:42 04:42 WBC 5.7 RBC 4.80 Hgb 13.1 L Hct 40.0 L MCV 83.3 L MCH 27 MCHC 32.8 RDW 14.2 Plt Count 149 MPV 11.7 Neut % (Auto) 46.8 Lymph % (Auto) 38.7 Imperial % (Auto) 9.5 Eos % (Auto) 4.4 Baso % (Auto) 0.4 Neut # (Auto) 2.7 Lymph # (Auto) 2.2 Imperial # (Auto) 0.5 Eos # (Auto) 0.3 Baso # (Auto) 0.0 Immature Gran % 0.2 Nucleated RBC % 0.0 Immature Gran # 0.01 Nucleated RBCs # 0.00 Immature Plt Fraction 0.0 INR PT Patient/Control Mix Circ Anticoag PTT 75.3 H Sodium 138 Potassium 3.8 Chloride 105 Carbon Dioxide 22 Anion Gap 14.8 BUN 59 H Creatinine 3.60 H GFR Calculation 23 BUN/Creatinine Ratio 16.00 Glucose 97 Calculated Osmolality 291.7 Calcium 9.0 Magnesium 2.3 10/10/16 04:42 WBC RBC Hgb Hct MCV MCH MCHC RDW Plt Count MPV Neut % (Auto) Lymph % (Auto) Imperial % (Auto) Eos % (Auto) Baso % (Auto) Neut # (Auto) Lymph # (Auto) Imperial # (Auto) Eos # (Auto) Baso # (Auto) Immature Gran % Nucleated RBC % Immature Gran # Nucleated RBCs # Immature Plt Fraction INR 1.2 PT Patient/Control Mix 12.7 Circ Anticoag PTT Sodium Potassium Chloride Carbon Dioxide Anion Gap BUN Creatinine GFR Calculation BUN/Creatinine Ratio Glucose Calculated Osmolality Calcium Magnesium - EKG EKG results: interpreted by me EKG shows: sinus rhythm Quality Measures - Stroke Symptom Onset Unknown: No Specialty Discharge - Follow Up or Referrals Follow up with: Chele Fonseca Jr., MD [Physician] - 10/29/16 10:45 am <Melina Chandra - Last Filed: 10/10/16 17:15> Cardiology - PN: Subj Interval history: I have personally interviewed and evaluated the patient, reviewed the chart and discussed medical decision-making with Practitioner Raquel. I have read this note and agree with her documentation here in. Exam (Progress Note) - Constitutional Vitals: Period Temp Pulse Resp BP Sys/Reyes Pulse Ox Last 24 Hr 97.6 F-98.5 F 62-83 18-20 130-160/72-95 98-100 Result/EKG - Labs CBC & BMP: 10/10/16 04:42 10/10/16 04:42 Labs: Laboratory Results - last 24 hr 10/09/16 10/10/16 10/10/16 19:20 04:42 04:42 WBC 5.7 RBC 4.80 Hgb 13.1 L Hct 40.0 L MCV 83.3 L MCH 27 MCHC 32.8 RDW 14.2 Plt Count 149 MPV 11.7 Neut % (Auto) 46.8 Lymph % (Auto) 38.7 Imperial % (Auto) 9.5 Eos % (Auto) 4.4 Baso % (Auto) 0.4 Neut # (Auto) 2.7 Lymph # (Auto) 2.2 Imperial # (Auto) 0.5 Eos # (Auto) 0.3 Baso # (Auto) 0.0 Immature Gran % 0.2 Nucleated RBC % 0.0 Immature Gran # 0.01 Nucleated RBCs # 0.00 Immature Plt Fraction 0.0 INR PT Patient/Control Mix Circ Anticoag PTT 75.3 H Sodium 138 Potassium 3.8 Chloride 105 Carbon Dioxide 22 Anion Gap 14.8 BUN 59 H Creatinine 3.60 H GFR Calculation 23 BUN/Creatinine Ratio 16.00 Glucose 97 Calculated Osmolality 291.7 Calcium 9.0 Magnesium 2.3 10/10/16 04:42 WBC RBC Hgb Hct MCV MCH MCHC RDW Plt Count MPV Neut % (Auto) Lymph % (Auto) Imperial % (Auto) Eos % (Auto) Baso % (Auto) Neut # (Auto) Lymph # (Auto) Imperial # (Auto) Eos # (Auto) Baso # (Auto) Immature Gran % Nucleated RBC % Immature Gran # Nucleated RBCs # Immature Plt Fraction INR 1.2 PT Patient/Control Mix 12.7 Circ Anticoag PTT Sodium Potassium Chloride Carbon Dioxide Anion Gap BUN Creatinine GFR Calculation BUN/Creatinine Ratio Glucose Calculated Osmolality Calcium Magnesium
--- NOTE | 2016-10-10 12:49 | Nephrology Progress Note ---
Nephrology - PN: Subj Interval history: Patient is resting comfortably no acute changes. Serum creatinine is noted to be 4.0. No shortness of breath or chest pain. Patient is starting on Coumadin therapy tonight. Will get a BMP in a.m. Still waiting for further records of kidney biopsy that was done in [place]. Feel that this patient has underlying chronic kidney disease and his creatinine is more closely to his baseline. 10/09/2016 the patient is resting comfortably. He appears much more comfortable today. Patient serum creatinine was noted to be 3.7 which is trending down. No shortness of breath or chest pain. 10/10/2016 the patient is resting comfortably visiting with family. He is in a good mood. Serum creatinine is noted to be 3.6 today. This appears to be his baseline. No shortness of breath or chest pain. Exam (PN)-Nephrology - Vital Signs Vital signs: Period Temp Pulse Resp BP Sys/Reyes Pulse Ox Last 24 Hr 97.6 F-98.5 F 62-69 18-20 131-160/79-95 98-100 - General Appearance General appearance: well-developed, well-nourished EENT: ATNC Neck: supple Respiratory: clear Cardiology: regular rate, regular rhythm Gastrointestinal: normoactive bowel sounds, no tenderness, no guarding Neurologic: alert and oriented x3 Musculoskeletal: no clubbing Psychiatric: mood/affect appropriate - Lab 10/10/16 04:42 10/10/16 04:42 Most recent lab results Calcium 9.0 MG/DL (8.5-10.1) 10/10/16 04:42 Magnesium 2.3 MG/DL (1.8-2.4) 10/10/16 04:42 Assessment and Plan (1) Hypertension Status: Chronic Current Visit: Yes Qualifiers: Hypertension type: essential hypertension Qualified Code(s): I10 - Essential (primary) hypertension (2) NICM (nonischemic cardiomyopathy) Status: Chronic Assessment and plan: Followed by cardiology. Patient has history of a pacemaker placement. Current Visit: Yes (3) CRI (chronic renal insufficiency) Status: Chronic Assessment and plan: Avoid nephrotoxic agents. No NSAID medications. Will continue to follow with you. At discharge patient when he will follow-up appointment with me in 2 weeks with a BMP. Current Visit: Yes Qualifiers: Chronic kidney disease stage: stage 4 (severe) Qualified Code(s): N18.4 - Chronic kidney disease, stage 4 (severe) (4) Dyslipidemia Status: Chronic Current Visit: No (5) Osteoarthritis of left knee Status: Acute Current Visit: No (6) CKD (chronic kidney disease) stage 4, GFR 15-29 ml/min Status: Chronic Current Visit: Yes Specialty Discharge - Follow Up or Referrals
--- NOTE | 2016-10-10 13:36 | Hospitalist Progress Note ---
Assessment and Plan (1) History of Coumadin therapy Status: Acute Assessment and plan: Moderate international normalizing ratio intention is to keep it between 2 and 3. Patient is still subtherapeutic at this point Current Visit: Yes (2) Hypertension Status: Chronic Assessment and plan: Continue blood pressure medication. Current Visit: Yes Qualifiers: Hypertension type: essential hypertension Qualified Code(s): I10 - Essential (primary) hypertension (3) CHF (congestive heart failure) Status: Acute Assessment and plan: Continue cardiotonic meds as ordered. Current Visit: Yes Qualifiers: Congestive heart failure type: combined Congestive heart failure chronicity : acute on chronic Qualified Code(s): I50.43 - Acute on chronic combined systolic (congestive) and diastolic (congestive) heart failure (4) Atrial fibrillation Status: Acute Assessment and plan: Continue anticoagulation with heparin in the meantime and to a target of INR between 2 and 3. Raise dose of Coumadin to 7.5 daily starting at 5:00 today. Current Visit: Yes Qualifiers: Atrial fibrillation type: paroxysmal Qualified Code(s): I48.0 - Paroxysmal atrial fibrillation Hospitalist: Subjective Interval history: Patient has been seen interviewed and examined chart has been reviewed. Admitted to the hospital September 22 with shortness of breath and bradycardia found to the pulmonary embolism. Patient is currently on Coumadin with subtherapeutic INR. He has an ICD in place history of ischemic cardiomyopathy history of atrial fibrillation and severe systolic congestive heart failure ejection fraction estimated around 25%. Due to his atrial fibrillation diastolic indices could not be clearly determined. Exam - Constitutional Vitals: Period Temp Pulse Resp BP Sys/Reyes Pulse Ox Last 24 Hr 97.6 F-98.5 F 62-69 18-20 131-160/79-95 98-100 General appearance: normal weight - Head Head exam: Present: normocephalic, atraumatic - Eye Eye exam: Present: EOMI Pupils: Present: MARISOL - Neck Neck exam: Present: normal inspection - Respiratory Respiratory exam: Present: clear to auscultation bilaterally - Cardiovascular Cardiovascular exam: Present: irregular rhythm - GI/Abdominal GI/Abdominal exam: Present: normal bowel sounds, soft - Extremities Exam Extremities exam: Present: full ROM - Neurological Exam Neurological exam: Present: alert, oriented X3, CN II-XII intact - Psychiatric Psychiatric exam: Present: normal affect, normal mood - Skin Skin exam: Present: normal color, warm, dry Results - Labs CBC & BMP: 10/10/16 04:42 10/10/16 04:42 Lab Results: I have reviewed the past 24 hour labs Quality Measures - Stroke Symptom Onset Unknown: No Specialty Discharge - Follow Up or Referrals Follow up with: Chele Fonseca Jr., MD [Physician] - 10/29/16 10:45 am
[2016-10-10] MEDS: WARFARIN 7.5 MG TABLET PO SCH (18:31)
[2016-10-10] MEDS: ROSUVASTATIN 10 MG TABLET PO SCH (20:50)
[2016-10-10] MEDS: CARVEDILOL 25 MG TABLET PO SCH (20:50)
[2016-10-11] MEDS: HEPARIN DRIP 25,000 UNITS/500 ML PREMIX IV SCH ×2 (04:44→23:45)
[2016-10-11 05:53] LABS: Basophils % 0.4 % (0.0-0.8); Eosinophils # 0.3 10*3/uL (0.0-0.87); Eosinophils % 6.1 % (0.00-10.9); Hematocrit 40.1 VOL% (42.0-52.0); Hemoglobin 13.1 GM/DL (14.0-18.0); Immature Granulocytes % 0.2 %; Immature Granulocytes Absolute 0.01 #; Lymphocytes # 2.2 10*3/uL (1.4-4.0); Mean Corpuscular HGB Conc 32.7 GM/DL (32-36); Mean Corpuscular Hemoglobin 27 PG (27-34); Mean Corpuscular Volume 83.2 FL (87-102); Mean Platelet Volume 11.9 FL (9.6-12.0); Monocytes # 0.6 10*3/uL (0.11-0.8); Monocytes % 11.5 % (1.7-12.7); Neutrophils # 2.1 10*3/uL (1.4-7.4); Neutrophils % 39.8 % (38.7-73.9); Platelet Count 159 T/CUMM (130-400); Red Blood Count 4.82 MC/CUMM (3.8-5.5); Red Cell Distribution Width 14.1 % (9.3-17.3); White Blood Count 5.2 T/CUMM (4-12)
[2016-10-11 05:58] LABS: INR 1.5; PT Patient Result 16.3 SECS
[2016-10-11 06:23] LABS: Calcium 9.4 MG/DL (8.5-10.1); Magnesium 2.3 MG/DL (1.8-2.4); Osmolality,Calculated 294.5 MOS/KG (273-304)
[2016-10-11] MEDS: LOSARTAN 50 MG TABLET PO SCH (08:07)
[2016-10-11] MEDS: FUROSEMIDE 40 MG/4 ML VIAL IV SCH (08:08)
[2016-10-11] MEDS: MULTIVITAMIN (CENTRUM) TABLET PO SCH (08:08)
[2016-10-11] MEDS: TAMSULOSIN 0.4 MG CAPSULE PO SCH (08:08)
[2016-10-11] MEDS: ASCORBIC ACID 500 MG TABLET PO SCH (08:08)
[2016-10-11] MEDS: CARVEDILOL 25 MG TABLET PO SCH ×2 (08:08→21:02)
[2016-10-11] MEDS: ASPIRIN CHEW 81 MG TABLET PO SCH (08:08)
[2016-10-11] MEDS: PANTOPRAZOLE 40 MG TABLET PO SCH (08:08)
--- NOTE | 2016-10-11 10:35 | Nephrology Progress Note ---
Nephrology - PN: Subj Interval history: Pt in good spirits. Denies SOB/pain. Exam (PN)-Nephrology - Vital Signs Vital signs: Period Temp Pulse Resp BP Sys/Reyes Pulse Ox Last 24 Hr 98 F-98.5 F 62-83 16-20 130-147/72-95 98-100 - General Appearance General appearance: well-developed, well-nourished EENT: ATNC, PERRL, mucous membranes moist, hearing intact, vision intact Neck: no JVD, no thyromegaly Respiratory: no kyphosis, clear Cardiology: no murmurs, no rub Gastrointestinal: normoactive bowel sounds, no tenderness Integumentary: no rash, warm and dry Neurologic: no focal deficit, no asterixis Musculoskeletal: no deformities, no erythema Psychiatric: mood/affect appropriate, cooperative - Lab 10/11/16 05:11 10/11/16 05:11 Most recent lab results Calcium 9.4 MG/DL (8.5-10.1) 10/11/16 05:11 Magnesium 2.3 MG/DL (1.8-2.4) 10/11/16 05:11 Assessment and Plan (1) CKD (chronic kidney disease) stage 4, GFR 15-29 ml/min Problem details: Stable. Status: Chronic Assessment and plan: No new recs. Current Visit: Yes Specialty Discharge - Follow Up or Referrals Follow up with: Chele Fonseca Jr., MD [Physician] - 10/29/16 10:45 am
--- NOTE | 2016-10-11 12:28 | Hospitalist Progress Note ---
Assessment and Plan (1) History of Coumadin therapy Status: Acute Assessment and plan: Moderate international normalizing ratio intention is to keep it between 2 and 3. Patient is still subtherapeutic at this point Current Visit: Yes (2) Hypertension Status: Chronic Assessment and plan: Continue blood pressure medication. Current Visit: Yes Qualifiers: Hypertension type: essential hypertension Qualified Code(s): I10 - Essential (primary) hypertension (3) CHF (congestive heart failure) Status: Acute Assessment and plan: Continue cardiotonic meds as ordered. Current Visit: Yes Qualifiers: Congestive heart failure type: combined Congestive heart failure chronicity : acute on chronic Qualified Code(s): I50.43 - Acute on chronic combined systolic (congestive) and diastolic (congestive) heart failure (4) Atrial fibrillation Status: Acute Assessment and plan: Continue anticoagulation with heparin in the meantime and to a target of INR between 2 and 3. Raise dose of Coumadin to 7.5 daily starting at 5:00 today. Current Visit: Yes Qualifiers: Atrial fibrillation type: paroxysmal Qualified Code(s): I48.0 - Paroxysmal atrial fibrillation Hospitalist: Subjective Interval history: Patient has been seen interviewed and examined chart has been reviewed gentleyazmin was seen a lot yesterday is on heparin pending target INR is. Admitted to the hospital with a pulmonary embolism besides shortness of breath hypertension renal insufficiency with chronic kidney disease. The chronic kidney disease makes bridging with Lovenox in question as to adequacy of treatment pending target INRs. I will therefore leave him here for heparin treatment until we meet INR between 2 and 3. Care discussed with the patient. Exam - Constitutional Vitals: Period Temp Pulse Resp BP Sys/Reyes Pulse Ox Last 24 Hr 98 F-98.5 F 63-83 16-20 130-147/72-95 98-100 General appearance: normal weight - Head Head exam: Present: normocephalic, atraumatic - Eye Eye exam: Present: EOMI Pupils: Present: MARISOL - ENT ENT exam: Present: normal exam - Neck Neck exam: Present: normal inspection - Respiratory Respiratory exam: Present: clear to auscultation bilaterally - Cardiovascular Cardiovascular exam: Present: irregular rhythm, other (Rate below 100) - GI/Abdominal GI/Abdominal exam: Present: normal bowel sounds, soft - Extremities Exam Extremities exam: Present: full ROM - Neurological Exam Neurological exam: Present: alert, oriented X3, CN II-XII intact - Psychiatric Psychiatric exam: Present: normal affect, normal mood - Skin Skin exam: Present: normal color, warm, dry Results - Labs CBC & BMP: 10/11/16 05:11 10/11/16 05:11 Lab Results: I have reviewed the past 24 hour labs (INR 1.5 today. Continue Coumadin 7.5 mg p.o. at 1800 hrs.) Quality Measures - Stroke Symptom Onset Unknown: No Specialty Discharge - Follow Up or Referrals Follow up with: Chele Fonseca Jr., MD [Physician] - 10/29/16 10:45 am
--- NOTE | 2016-10-11 15:38 | Cardiology Progress Note ---
Cardiology - PN: Subj Interval history: COMPUTER SUPPORT TECHNICIAN: DR. MISHRA SUMMARY: Hx of hypertension, dyslipidemia, severe dilated cardiomyopathy dx 2009 ([facility] in [place]), congestive heart failure, internal cardiac defibrillator 2011 and chronic renal insufficiency. September 03, 2016 echocardiogram: EF 35%, no significant valvular abnormality. PAP 36mmHg. [facility] 01/16/2012: no significant CAD, EF25%-30%. Recent Lexiscan stress test: July 04, 2014: No evidence of reversible ischemia, EF 47%. Admitted October 05, 2016 with SOB, acute on chronic CHF, newly dx afib. VQ lung scan revealed intermediate probability for PE. He has been maintained on Heparin IV. There was a question of bradycardia, ICD was interrogated and found to be working appropriately. Troponins mildly elevated in the setting of CKD, but remained flat. October 11, 2016: Clinically the patient is doing well, he denies any chest pain or shortness of breath. He has been active, and overall his condition has improved. Clinically he is ready to go home when his INR is therapeutic. His Coumadin was increased last night. ASSESSMENT/PLAN: 1. SOB - multifactorial to include PE, acute on chronic CHF. Continue current plan of care 2. ABNORMAL VQ LUNG SCAN - currently on IV Heparin. Moderate probability of PE. Heparin until INR 2.0. Now on Coumadin. Continue current plan of care 3. ACUTE ON CHRONIC CHF - secondary to combined systolic dysfunction (EF 20-25 %) and diastolic dysfunction. NYHA Class II-III. He appears to be compensated and I am going to change his Lasix to oral therapy. 4. HYPERTENSION -chronic, controlled. 5. DYSLIPIDEMIA - LDL 58. Continue Crestor. 6. CKD, STAGE IV - Dr. Fonseca managing. Currently on Losartan, home medication. Will continue unless Dr. Fonseca believes we should discontinue. 7. NICM, EF 20-25% - continue beta-geena, ARB. 8. ELEVATED TROPONIN - though elevated, remains flat. CPK and CK-MB within normal limits. 9. ATRIAL FIBRILLATION - New diagnosis. TERENCE VASC SCORE 2. Currently rate controlled, IV Heparin continues. Continue warfarin. INR in a.m. 10. S/P ICD - interrogated and found to be working appropriately. 11. NSVT -no additional NSVT since beta-geena increased. Continue to monitor and treat electrolyte abnormalities. Exam (Progress Note) - Constitutional Vitals: Period Temp Pulse Resp BP Sys/Reyes Pulse Ox Last 24 Hr 98 F-98.5 F 63-83 16-20 106-147/67-95 98-100 Exam: General appearance: normal weight, no acute distress - Head Head exam: Present: normal inspection, normocephalic, atraumatic. Absent: hematoma, laceration - Eye Eye exam: Present: EOMI. Absent: conjunctival injection, nystagmus, periorbital swelling, scleral icterus, laceration to eyelids Pupils: Present: PERRL. Absent: constricted, dilated, fixed, irregular, unequal - ENT ENT exam: Present: normal exam, normal external ear exam - Neck Neck exam: Present: normal inspection. Absent: lymphadenopathy, meningismus, tenderness, thyromegaly - Respiratory Respiratory exam: Present: clear to auscultation bilaterally. Absent: accessory muscle use, chest wall tenderness - Cardiovascular Cardiovascular exam: Present: Irregularly irregular rate and rhythm. Absent: carotid bruit, gallop, JVD, rubs - GI/Abdominal GI/Abdominal exam: Present: normal bowel sounds, soft. Absent: distended, firm , guarding, hernia, mass, tenderness, rebound. - Extremities Exam Extremities exam: Present: normal inspection, normal capillary refill. Absent: calf tenderness, edema - Back Exam Back exam: Present: normal inspection. Absent: muscle spasm, vertebral tenderness - Neurological Exam Neurological exam: Present: alert, oriented X3, grossly intact without resting or intention tremor - Psychiatric Psychiatric exam: Present: normal affect, normal mood - Skin Skin exam: Present: normal color, warm, dry, intact. Absent: cyanosis, diaphoretic, rash, urticaria Result/EKG - Labs CBC & BMP: 10/11/16 05:11 10/11/16 05:11 Labs: Laboratory Results - last 24 hr 10/10/16 10/11/16 10/11/16 19:43 05:11 05:11 WBC 5.2 RBC 4.82 Hgb 13.1 L Hct 40.1 L MCV 83.2 L MCH 27 MCHC 32.7 RDW 14.1 Plt Count 159 MPV 11.9 Neut % (Auto) 39.8 Lymph % (Auto) 42.0 [place] % (Auto) 11.5 Eos % (Auto) 6.1 Baso % (Auto) 0.4 Neut # (Auto) 2.1 Lymph # (Auto) 2.2 [place] # (Auto) 0.6 Eos # (Auto) 0.3 Baso # (Auto) 0.0 Immature Gran % 0.2 Nucleated RBC % 0.0 Immature Gran # 0.01 Nucleated RBCs # 0.00 Immature Plt Fraction 0.0 INR 1.5 PT Patient/Control Mix 16.3 D Circ Anticoag PTT 68.3 H Sodium Potassium Chloride Carbon Dioxide Anion Gap BUN Creatinine GFR Calculation BUN/Creatinine Ratio Glucose Calculated Osmolality Calcium Magnesium 10/11/16 05:11 WBC RBC Hgb Hct MCV MCH MCHC RDW Plt Count MPV Neut % (Auto) Lymph % (Auto) [place] % (Auto) Eos % (Auto) Baso % (Auto) Neut # (Auto) Lymph # (Auto) [place] # (Auto) Eos # (Auto) Baso # (Auto) Immature Gran % Nucleated RBC % Immature Gran # Nucleated RBCs # Immature Plt Fraction INR PT Patient/Control Mix Circ Anticoag PTT Sodium 139 Potassium 4.0 Chloride 104 Carbon Dioxide 23 Anion Gap 16.0 H BUN 61 H Creatinine 3.80 H GFR Calculation 22 BUN/Creatinine Ratio 16.00 Glucose 109 H Calculated Osmolality 294.5 Calcium 9.4 Magnesium 2.3 Quality Measures - Stroke Symptom Onset Unknown: No Specialty Discharge - Follow Up or Referrals Follow up with: Chele Fonseca Jr., MD [Physician] - 10/29/16 10:45 am
[2016-10-11] MEDS: FUROSEMIDE 40 MG TABLET PO SCH (16:02)
[2016-10-11] MEDS: WARFARIN 7.5 MG TABLET PO SCH (17:47)
[2016-10-11] MEDS: ROSUVASTATIN 10 MG TABLET PO SCH (21:02)
[2016-10-12 05:18] LABS: Basophils % 0.4 % (0.0-0.8); Eosinophils # 0.2 10*3/uL (0.0-0.87); Eosinophils % 4.5 % (0.00-10.9); Hematocrit 38.7 VOL% (42.0-52.0); Hemoglobin 12.7 GM/DL (14.0-18.0); Immature Granulocytes % 0.2 %; Immature Granulocytes Absolute 0.01 #; Lymphocytes % 39.5 % (21.2-54.2); Mean Corpuscular HGB Conc 32.8 GM/DL (32-36); Mean Corpuscular Hemoglobin 27 PG (27-34); Mean Corpuscular Volume 83.4 FL (87-102); Mean Platelet Volume 11.2 FL (9.6-12.0); Monocytes # 0.6 10*3/uL (0.11-0.8); Monocytes % 11.9 % (1.7-12.7); Neutrophils # 2.2 10*3/uL (1.4-7.4); Neutrophils % 43.5 % (38.7-73.9); Platelet Count 147 T/CUMM (130-400); Red Blood Count 4.64 MC/CUMM (3.8-5.5); Red Cell Distribution Width 14.2 % (9.3-17.3); White Blood Count 5.1 T/CUMM (4-12)
[2016-10-12 05:55] LABS: INR 2.2
[2016-10-12 05:59] LABS: Calcium 9.5 MG/DL (8.5-10.1); Magnesium 2.4 MG/DL (1.8-2.4); Osmolality,Calculated 294.5 MOS/KG (273-304); Potassium 3.8 MMOL/L (3.5-5.1)
[2016-10-12 06:11] LABS: PT Patient Result 23.9 SECS
[2016-10-12] MEDS: MULTIVITAMIN (CENTRUM) TABLET PO SCH (08:33)
[2016-10-12] MEDS: TAMSULOSIN 0.4 MG CAPSULE PO SCH (08:33)
[2016-10-12] MEDS: ASPIRIN CHEW 81 MG TABLET PO SCH (08:33)
[2016-10-12] MEDS: ASCORBIC ACID 500 MG TABLET PO SCH (08:33)
[2016-10-12] MEDS: LOSARTAN 50 MG TABLET PO SCH (08:33)
[2016-10-12] MEDS: CARVEDILOL 25 MG TABLET PO SCH (08:33)
[2016-10-12] MEDS: FUROSEMIDE 40 MG TABLET PO SCH (08:33)
[2016-10-12] MEDS: PANTOPRAZOLE 40 MG TABLET PO SCH (08:33)
--- NOTE | 2016-10-12 12:34 | Discharge Summary ---
Hospital Course - Hospital Course Hospital Course: This 66-year-old gentleman was admitted to the hospital on 05 October having presented with shortness of breath. History of congestive heart failure hypertension pacemaker defibrillator placement with a history of systolic dysfunction found to have had a pulmonary embolus. Stay in the hospital was to stabilize his breathing with oxygen supplementation was given heparin and start soap subsequently started on Coumadin. By the time I took over the care we are waiting for the international normalizing ratio to get the 2. This happened yesterday and heparin was stopped patient discharged home with a plan to see the Coumadin clinic of the cardiology group. Other than the PE that was diagnosed in a major event during this hospitalization. Was referred to the daily progress notes for details follow-ups and treatment. He was sent home with Coumadin 7.5 mg daily to be taken at 6 PM. Is instructed to the patient to his INR will be checked next at the Coumadin clinic on 10/14/2016. Diagnosis - Discharge Diagnosis (1) History of Coumadin therapy Status: Acute (2) Hypertension Status: Chronic (3) CHF (congestive heart failure) Status: Acute (4) Atrial fibrillation Status: Acute Specialty Discharge - Follow Up or Referrals Follow up with: Melina Chandra MD [Physician] - 10/14/16 (Coumadin clinic) Chele Fonseca Jr., MD [Physician] - 10/29/16 10:45 am (with BMP) Discharge Plan - Discharge Data Disposition: Disch To Home/Self Care Condition at Discharge: Stable Discharge Diet: heart healthy Activity: resume usual activities as tolerated, other (Avoid sharps avoid green leafy vegetables) Weight Bearing at Discharge: weight bear as tolerated Driving: not until seen by doctor Contact your physician if you experience:: fever over 101, Redness or swelling, pain uncontrolled by pain medications - Discharge Medications New Warfarin [Coumadin] 7.5 mg PO DAILY@1800 #30 tablet Continue Ascorbic Acid [Vitamin C] 500 mg PO DAILY NIFEdipine XL TAB [Procardia Xl] 30 mg PO BEDTIME Simvastatin [Zocor] 20 mg PO BEDTIME Furosemide Tab [Lasix Tab] 40 mg PO DAILY Tamsulosin [Flomax] 0.4 mg PO DAILY Multivit-Min/FA/Lycopen/Lutein [Centrum Silver Ultra Men's Tab] 1 tablet PO DAILY Aspirin Chew Tab 81 mg PO DAILY Losartan Potassium 100 mg PO DAILY Carvedilol [Coreg] 25 mg PO BID Discontinued Furosemide Tab [Lasix Tab] 40 mg PO BID #60 tablet - Follow Up or Referral Follow Up: Chele Fonseca Jr., MD [Physician] - 10/29/16 10:45 am (with BMP) Melina Chandra MD [Physician] - 10/14/16 (Coumadin clinic) - Forms/Instructions Instructions: Warfarin (By mouth), Heart Failure (DC), Hypertension (DC) Exam - Constitutional Vitals: Period Temp Pulse Resp BP Sys/Reyes Pulse Ox Last 24 Hr 97.8 F-99.0 F 65-75 16-20 112-141/75-86 96-100 General appearance: normal weight - Head Head exam: Present: normal inspection, normocephalic, atraumatic - Eye Eye exam: Present: EOMI Pupils: Present: MARISOL - ENT ENT exam: Present: normal exam - Neck Neck exam: Present: normal inspection - Cardiovascular Cardiovascular exam: Present: regular rate and rhythm - GI/Abdominal GI/Abdominal exam: Present: normal bowel sounds, soft - Extremities Exam Extremities exam: Present: full ROM - Neurological Exam Neurological exam: Present: alert, oriented X3, CN II-XII intact - Psychiatric Psychiatric exam: Present: normal affect, normal mood - Skin Skin exam: Present: normal color, warm, dry Discharge Results Procedures and tests throughout hospitalization: Pending Orders 10/13/16 04:00 BMP w/ Mg [Basic Metabolic Panel w/Mg] IN AM CBC [Comp Blood Count Auto Diff] IN AM Prothrombin Time INR IN AM Labs on day of discharge: Labs from last 24 hours 10/12/16 10/12/16 10/12/16 04:52 04:52 04:52 WBC RBC Hgb Hct MCV MCH MCHC RDW Plt Count MPV Neut % (Auto) Lymph % (Auto) [place] % (Auto) Eos % (Auto) Baso % (Auto) Neut # (Auto) Lymph # (Auto) [place] # (Auto) Eos # (Auto) Baso # (Auto) Immature Gran % Nucleated RBC % Immature Gran # Nucleated RBCs # Immature Plt Fraction INR 2.2 PT Patient/Control Mix 23.9 D Circ Anticoag PTT 91.9 H D Sodium 139 Potassium 3.8 Chloride 105 Carbon Dioxide 24 Anion Gap 13.8 BUN 64 H Creatinine 3.70 H GFR Calculation 23 BUN/Creatinine Ratio 17.00 Glucose 107 H Calculated Osmolality 294.5 Calcium 9.5 Magnesium 2.4 10/12/16 10/11/16 04:52 19:24 WBC 5.1 RBC 4.64 Hgb 12.7 L Hct 38.7 L MCV 83.4 L MCH 27 MCHC 32.8 RDW 14.2 Plt Count 147 MPV 11.2 Neut % (Auto) 43.5 Lymph % (Auto) 39.5 [place] % (Auto) 11.9 Eos % (Auto) 4.5 Baso % (Auto) 0.4 Neut # (Auto) 2.2 Lymph # (Auto) 2.0 [place] # (Auto) 0.6 Eos # (Auto) 0.2 Baso # (Auto) 0.0 Immature Gran % 0.2 Nucleated RBC % 0.0 Immature Gran # 0.01 Nucleated RBCs # 0.00 Immature Plt Fraction 0.0 INR PT Patient/Control Mix Circ Anticoag PTT 115.4 H* D Sodium Potassium Chloride Carbon Dioxide Anion Gap BUN Creatinine GFR Calculation BUN/Creatinine Ratio Glucose Calculated Osmolality Calcium Magnesium DS: Provider Date of admission: 10/05/16 23:27 Primary care physician: Zi Krishna DO Attending physician on admission: Fredy Vines MD Consults: 10/05/16 23:33 Consult to Physician [CONS] Routine Comment: Consulting Provider: Cardiology - [facility] Consulting Provider Notified: Yes When should Consulting Provider be notified: In am Person Notified: Dr. Figueroa Date Notified: 10/06/16 Time Notified: 01:52 10/06/16 03:03 Consult to Physician [CONS] Routine Comment: Consulting Provider: 10/06/16 13:12 Consult to Physician [CONS] Routine Comment: was to see you in clinic tomorrow Consulting Provider: Chele Fonseca Jr. Person Notified: Dr. Fonseca Date Notified: 10/06/16 Time Notified: 13:27 Discharging clinician: Eyal Jordan MD
--- NOTE | 2016-10-12 12:41 | Cardiology Progress Note ---
Cardiology - PN: Subj Interval history: CLEATER: DR. MISHRA SUMMARY: Hx of hypertension, dyslipidemia, severe dilated cardiomyopathy dx 2009 ([facility] in [place]), congestive heart failure, internal cardiac defibrillator 2011 and chronic renal insufficiency. September 03, 2016 echocardiogram: EF 35%, no significant valvular abnormality. PAP 36mmHg. [facility] 01/16/2012: no significant CAD, EF25%-30%. Recent Lexiscan stress test: July 04, 2014: No evidence of reversible ischemia, EF 47%. Admitted October 05, 2016 with SOB, acute on chronic CHF, newly dx afib. VQ lung scan revealed intermediate probability for PE. He has been maintained on Heparin IV. There was a question of bradycardia, ICD was interrogated and found to be working appropriately. Troponins mildly elevated in the setting of CKD, but remained flat. October 11, 2016: Clinically the patient is doing well, he denies any chest pain or shortness of breath. He has been active, and overall his condition has improved. Clinically he is ready to go home when his INR is therapeutic. His Coumadin was increased last night. October 12, 2016: Clinically he is doing well, denies any chest pain, shortness of breath. INR is therapeutic today. He feels ready to go home. He is maintaining normal sinus rhythm. ASSESSMENT/PLAN: 1. SOB - multifactorial to include PE, acute on chronic CHF. Continue current plan of care. This has resolved now. 2. ABNORMAL VQ LUNG SCAN - currently on IV Heparin. Moderate probability of PE. Heparin until INR 2.0. Now on Coumadin. Continue current plan of care 3. ACUTE ON CHRONIC CHF - secondary to combined systolic dysfunction (EF 20-25 %) and diastolic dysfunction. NYHA Class II-III. He appears to be compensated. 4. HYPERTENSION -chronic, controlled. 5. DYSLIPIDEMIA - LDL 58. Continue Crestor. 6. CKD, STAGE IV - Dr. Fonseca managing. Currently on Losartan, home medication. Will continue unless Dr. Fonseca believes we should discontinue. 7. NICM, EF 20-25% - continue beta-geena, ARB. 8. ELEVATED TROPONIN - though elevated, remains flat. CPK and CK-MB within normal limits. 9. ATRIAL FIBRILLATION - New diagnosis. TERENCE VASC SCORE 2. Currently in normal sinus rhythm. We will set him up for outpatient INR clinic.. 10. S/P ICD - interrogated and found to be working appropriately. 11. NSVT -no additional NSVT since beta-geena increased. Continue to monitor and treat electrolyte abnormalities. Exam (Progress Note) - Constitutional Vitals: Period Temp Pulse Resp BP Sys/Reyes Pulse Ox Last 24 Hr 97.8 F-99.0 F 65-75 16-20 112-141/75-86 96-100 Exam: General appearance: normal weight, no acute distress - Head Head exam: Present: normal inspection, normocephalic, atraumatic. Absent: hematoma, laceration - Eye Eye exam: Present: EOMI. Absent: conjunctival injection, nystagmus, periorbital swelling, scleral icterus, laceration to eyelids Pupils: Present: PERRL. Absent: constricted, dilated, fixed, irregular, unequal - ENT ENT exam: Present: normal exam, normal external ear exam - Neck Neck exam: Present: normal inspection. Absent: lymphadenopathy, meningismus, tenderness, thyromegaly - Respiratory Respiratory exam: Present: clear to auscultation bilaterally. Absent: accessory muscle use, chest wall tenderness - Cardiovascular Cardiovascular exam: Present: Regular rate and rhythm. Absent: carotid bruit, gallop, JVD, rubs - GI/Abdominal GI/Abdominal exam: Present: normal bowel sounds, soft. Absent: distended, firm , guarding, hernia, mass, tenderness, rebound. - Extremities Exam Extremities exam: Present: normal inspection, normal capillary refill. Absent: calf tenderness, edema - Back Exam Back exam: Present: normal inspection. Absent: muscle spasm, vertebral tenderness - Neurological Exam Neurological exam: Present: alert, oriented X3, grossly intact without resting or intention tremor - Psychiatric Psychiatric exam: Present: normal affect, normal mood - Skin Skin exam: Present: normal color, warm, dry, intact. Absent: cyanosis, diaphoretic, rash, urticaria Result/EKG - Labs CBC & BMP: 10/12/16 04:52 10/12/16 04:52 Lab Results: I have reviewed the past 24 hour labs Labs: Laboratory Results - last 24 hr 10/11/16 10/12/16 10/12/16 19:24 04:52 04:52 WBC 5.1 RBC 4.64 Hgb 12.7 L Hct 38.7 L MCV 83.4 L MCH 27 MCHC 32.8 RDW 14.2 Plt Count 147 MPV 11.2 Neut % (Auto) 43.5 Lymph % (Auto) 39.5 [place] % (Auto) 11.9 Eos % (Auto) 4.5 Baso % (Auto) 0.4 Neut # (Auto) 2.2 Lymph # (Auto) 2.0 [place] # (Auto) 0.6 Eos # (Auto) 0.2 Baso # (Auto) 0.0 Immature Gran % 0.2 Nucleated RBC % 0.0 Immature Gran # 0.01 Nucleated RBCs # 0.00 Immature Plt Fraction 0.0 INR 2.2 PT Patient/Control Mix 23.9 D Circ Anticoag PTT 115.4 H* D Sodium Potassium Chloride Carbon Dioxide Anion Gap BUN Creatinine GFR Calculation BUN/Creatinine Ratio Glucose Calculated Osmolality Calcium Magnesium 10/12/16 10/12/16 04:52 04:52 WBC RBC Hgb Hct MCV MCH MCHC RDW Plt Count MPV Neut % (Auto) Lymph % (Auto) [place] % (Auto) Eos % (Auto) Baso % (Auto) Neut # (Auto) Lymph # (Auto) [place] # (Auto) Eos # (Auto) Baso # (Auto) Immature Gran % Nucleated RBC % Immature Gran # Nucleated RBCs # Immature Plt Fraction INR PT Patient/Control Mix Circ Anticoag PTT 91.9 H D Sodium 139 Potassium 3.8 Chloride 105 Carbon Dioxide 24 Anion Gap 13.8 BUN 64 H Creatinine 3.70 H GFR Calculation 23 BUN/Creatinine Ratio 17.00 Glucose 107 H Calculated Osmolality 294.5 Calcium 9.5 Magnesium 2.4 Quality Measures - Stroke Symptom Onset Unknown: No Specialty Discharge - Follow Up or Referrals Follow up with: Melina Chandra MD [Physician] - 10/14/16 (Coumadin clinic) Chele Fonseca Jr., MD [Physician] - 10/29/16 10:45 am (with BMP)
--- NOTE | 2016-10-12 12:46 | Nephrology Progress Note ---
Nephrology - PN: Subj Interval history: Creatinine 3.7 for eGFR 23cc/min. Stable CKD stage 4. Pt denies SOB/pain. Exam (PN)-Nephrology - Vital Signs Vital signs: Period Temp Pulse Resp BP Sys/Reyes Pulse Ox Last 24 Hr 97.8 F-99.0 F 65-75 16-20 112-141/75-86 96-100 - General Appearance General appearance: well-developed, well-nourished EENT: ATNC, PERRL Neck: no JVD, no thyromegaly Respiratory: no kyphosis, no scoliosis Cardiology: no murmurs, no rub Gastrointestinal: normoactive bowel sounds, no tenderness Integumentary: no rash, warm and dry Neurologic: no focal deficit, no asterixis Musculoskeletal: no deformities, no erythema Psychiatric: mood/affect appropriate, cooperative - Lab 10/12/16 04:52 10/12/16 04:52 Most recent lab results Calcium 9.5 MG/DL (8.5-10.1) 10/12/16 04:52 Magnesium 2.4 MG/DL (1.8-2.4) 10/12/16 04:52 Assessment and Plan (1) CKD (chronic kidney disease) stage 4, GFR 15-29 ml/min Problem details: Stable. Status: Chronic Assessment and plan: No new recs. Current Visit: Yes Specialty Discharge - Follow Up or Referrals Follow up with: Melina Chandra MD [Physician] - 10/14/16 (Coumadin clinic) Chele Fonseca Jr., MD [Physician] - 10/29/16 10:45 am (with BMP)
[2016-10-12 13:13] VITALS: BP 131/85
== END 2016-10-12 13:40 | disposition home or self-care (01) | DRG 175 ==
LOC: N.ED 20:47 → N.EDINP 23:27 → SUATTDRO 23:27 → N.ICU 10-06 00:26 → N.TELEN 10-07 17:15
PROVIDERS: ADMIT Internal Medicine; ATTEND Internal Medicine Infectious Disease

== ENCOUNTER 2018-04-19 14:00 | Observation (INO) ==
[2018-04-19] MEDS ORDERED: ALBUTEROL 2.5 MG/3 ML NEB RESP TX STA (14:27)
[2018-04-19] MEDS ORDERED: hydrALAZINE 20 MG/1 ML VIAL IV STA (14:29)
[2018-04-19 15:02] LABS: Basophils % 0.2 % (0.0-0.8); Eosinophils # 0.2 10*3/uL (0.0-0.87); Eosinophils % 3.5 % (0.00-10.9); Hematocrit 36.1 VOL% (42.0-52.0); Hemoglobin 11.4 GM/DL (14.0-18.0); Immature Granulocytes % 0.2 %; Immature Granulocytes Absolute 0.01 #; Lymphocytes # 1.5 10*3/uL (1.4-4.0); Lymphocytes % 31.4 % (21.2-54.2); Mean Corpuscular HGB Conc 31.6 GM/DL (32-36); Mean Corpuscular Hemoglobin 28 PG (27-34); Mean Corpuscular Volume 88.9 FL (87-102); Mean Platelet Volume 11.9 FL (9.6-12.0); Monocytes # 0.4 10*3/uL (0.11-0.8); Monocytes % 8.6 % (1.7-12.7); Neutrophils # 2.8 10*3/uL (1.4-7.4); Neutrophils % 56.1 % (38.7-73.9); Platelet Count 141 T/CUMM (130-400); Red Blood Count 4.06 MC/CUMM (3.8-5.5); Red Cell Distribution Width 13.7 % (9.3-17.3); White Blood Count 4.9 T/CUMM (4-12)
[2018-04-19 15:49] LABS: Apearance,Urine CLEAR (Clear); Bilirubin,Urine Negative (Negative); Blood, Urine Negative (Negative); Glucose,Urine (UA) Negative (Negative); Hyaline Casts,Urine 1 /LPF (0-3); Ketones,Urine Negative (Negative); Nitrite,Urine Negative (Negative); Protein,Urine >=500 MG/DL; RBC,Urine 1 /HPF (0-4); Urine Color Yellow (Yellow); Urine Specific Gravity 1.012 (1.001-1.035); Urine Urobilinogen < 2.0 EU/DL (0.2-1.0); WBC,Urine 1 /HPF (0-6)
[2018-04-19 15:59] LABS: Albumin 3.1 G/DL (3.4-5.0); Bilirubin,Total 0.7 MG/DL (0.2-1.0); Calcium 8.3 MG/DL (8.5-10.1); Osmolality,Calculated 300.1 MOS/KG (273-304); Potassium 4.5 MMOL/L (3.5-5.1); Total Protein 6.2 G/DL (6.4-8.3)
[2018-04-19] MEDS ORDERED: FUROSEMIDE 40 MG/4 ML VIAL IV STA (17:08)
[2018-04-19 17:35] LABS: INR 1.9; PT Patient Result 20.1 SECS
[2018-04-19] MEDS ORDERED: ACETAMINOPHEN 325 MG TABLET PO PRN (17:45)
[2018-04-19] MEDS ORDERED: hydrALAZINE 20 MG/1 ML VIAL IV PRN (17:52)
[2018-04-19] MEDS: NITROGLYCERIN 2% OINT 1 INCH/GM PACK TOP SCH ×2 (18:24→23:57)
[2018-04-19] MEDS: SIMVASTATIN 20 MG TABLET PO SCH (22:17)
[2018-04-19] MEDS: CARVEDILOL 25 MG TABLET PO SCH (22:18)
[2018-04-19] MEDS: ALLOPURINOL 100 MG TABLET PO SCH (22:18)
[2018-04-20 05:18] LABS: Basophils % 0.1 % (0.0-0.8); Eosinophils # 0.1 10*3/uL (0.0-0.87); Eosinophils % 0.6 % (0.00-10.9); Hematocrit 33.7 VOL% (42.0-52.0); Hemoglobin 10.7 GM/DL (14.0-18.0); Immature Granulocytes % 0.6 %; Immature Granulocytes Absolute 0.05 #; Lymphocytes # 1.8 10*3/uL (1.4-4.0); Lymphocytes % 21.5 % (21.2-54.2); Mean Corpuscular HGB Conc 31.8 GM/DL (32-36); Mean Corpuscular Hemoglobin 28 PG (27-34); Mean Corpuscular Volume 87.8 FL (87-102); Mean Platelet Volume 12.2 FL (9.6-12.0); Monocytes # 0.8 10*3/uL (0.11-0.8); Monocytes % 9.2 % (1.7-12.7); Neutrophils # 5.7 10*3/uL (1.4-7.4); Platelet Count 143 T/CUMM (130-400); Red Blood Count 3.84 MC/CUMM (3.8-5.5); Red Cell Distribution Width 13.6 % (9.3-17.3); White Blood Count 8.3 T/CUMM (4-12)
[2018-04-20 05:42] LABS: Calcium 8.2 MG/DL (8.5-10.1); Osmolality,Calculated 298.3 MOS/KG (273-304); Potassium 4.1 MMOL/L (3.5-5.1); Risk Ratio 2.84; Thyroid Stimulating Hormone 0.997 uIU/ml (0.358-3.74); VLDL CHOLESTEROL 18.4 MG/DL
[2018-04-20] MEDS: NITROGLYCERIN 2% OINT 1 INCH/GM PACK TOP SCH ×2 (06:28→11:45)
[2018-04-20] MEDS: FUROSEMIDE 40 MG/4 ML VIAL IV SCH (08:55)
[2018-04-20] MEDS: LOSARTAN 50 MG TABLET PO SCH (08:56)
[2018-04-20] MEDS: CALCIUM (CARBONATE)/VITAMIN D 600 MG-400 UNIT TABLET PO SCH (08:56)
[2018-04-20] MEDS: ALLOPURINOL 100 MG TABLET PO SCH ×2 (08:57→20:35)
[2018-04-20] MEDS: ASPIRIN CHEW 81 MG TABLET PO SCH (08:57)
[2018-04-20] MEDS: MULTIVITAMIN (CENTRUM) TABLET PO SCH (08:57)
[2018-04-20] MEDS: WARFARIN 2.5 MG TABLET PO SCH (08:57)
[2018-04-20] MEDS: PANTOPRAZOLE 40 MG TABLET PO SCH (08:57)
[2018-04-20] MEDS: TAMSULOSIN 0.4 MG CAPSULE PO SCH (08:57)
[2018-04-20] MEDS: CARVEDILOL 25 MG TABLET PO SCH ×2 (09:00→16:45)
[2018-04-20] MEDS ORDERED: ASCORBIC ACID 500 MG TABLET PO SCH (09:00)
[2018-04-20] MEDS ORDERED: AZITHROMYCIN 250 MG TABLET PO SCH (09:00)
[2018-04-20] MEDS: Mirabegron [Myrbetriq] 25 MG PO SCH (09:06)
[2018-04-20] MEDS: ASCORBIC ACID 500 MG TABLET PO SCH (20:35)
[2018-04-20] MEDS: SIMVASTATIN 20 MG TABLET PO SCH (20:35)
[2018-04-21 05:39] LABS: Basophils % 0.2 % (0.0-0.8); Eosinophils # 0.1 10*3/uL (0.0-0.87); Eosinophils % 2.2 % (0.00-10.9); Hematocrit 33.8 VOL% (42.0-52.0); Hemoglobin 10.6 GM/DL (14.0-18.0); Immature Granulocytes % 0.3 %; Immature Granulocytes Absolute 0.02 #; Lymphocytes # 2.1 10*3/uL (1.4-4.0); Lymphocytes % 36.3 % (21.2-54.2); Mean Corpuscular HGB Conc 31.4 GM/DL (32-36); Mean Corpuscular Hemoglobin 27 PG (27-34); Mean Corpuscular Volume 87.3 FL (87-102); Mean Platelet Volume 11.7 FL (9.6-12.0); Monocytes # 0.5 10*3/uL (0.11-0.8); Monocytes % 9.1 % (1.7-12.7); Neutrophils % 51.9 % (38.7-73.9); Platelet Count 142 T/CUMM (130-400); Red Blood Count 3.87 MC/CUMM (3.8-5.5); Red Cell Distribution Width 13.5 % (9.3-17.3); White Blood Count 5.8 T/CUMM (4-12)
[2018-04-21 05:43] LABS: INR 2.3
[2018-04-21 05:53] LABS: PT Patient Result 24.3 SECS
[2018-04-21 05:56] LABS: Calcium 8.6 MG/DL (8.5-10.1); Osmolality,Calculated 301.4 MOS/KG (273-304); Potassium 4.1 MMOL/L (3.5-5.1)
[2018-04-21] MEDS: LOSARTAN 50 MG TABLET PO SCH (08:49)
[2018-04-21] MEDS: MULTIVITAMIN (CENTRUM) TABLET PO SCH (08:49)
[2018-04-21] MEDS: FUROSEMIDE 40 MG/4 ML VIAL IV SCH (08:49)
[2018-04-21] MEDS: CARVEDILOL 25 MG TABLET PO SCH (08:49)
[2018-04-21] MEDS: PANTOPRAZOLE 40 MG TABLET PO SCH (08:49)
[2018-04-21] MEDS: ALLOPURINOL 100 MG TABLET PO SCH (08:50)
[2018-04-21] MEDS: WARFARIN 2.5 MG TABLET PO SCH (08:50)
[2018-04-21] MEDS: ASPIRIN CHEW 81 MG TABLET PO SCH (08:50)
[2018-04-21] MEDS: CALCIUM (CARBONATE)/VITAMIN D 600 MG-400 UNIT TABLET PO SCH (08:50)
[2018-04-21] MEDS: ASCORBIC ACID 500 MG TABLET PO SCH (08:50)
[2018-04-21] MEDS: Mirabegron [Myrbetriq] 25 MG PO SCH (08:51)
[2018-04-21] MEDS: TAMSULOSIN 0.4 MG CAPSULE PO SCH (10:27)
[2018-04-21 12:11] VITALS: BP 111/70
[2018-04-23] MEDS ORDERED: WARFARIN 5 MG TABLET PO SCH (08:00)
== END 2018-04-21 14:38 | disposition home or self-care (01) ==
LOC: N.ED 14:00 → N.EDINP 14:00 → N.2E 19:17
PROVIDERS: ADMIT Internal Medicine; ATTEND Internal Medicine

== ENCOUNTER 2018-05-31 21:09 | Inpatient (IN) ==
[2018-05-31 23:19] LABS: Basophils % 0.4 % (0.0-0.8); Eosinophils # 0.2 10*3/uL (0.0-0.87); Eosinophils % 3.4 % (0.00-10.9); Hematocrit 34.4 VOL% (42.0-52.0); Hemoglobin 10.5 GM/DL (14.0-18.0); Immature Granulocytes % 0.2 %; Immature Granulocytes Absolute 0.01 #; Lymphocytes # 1.8 10*3/uL (1.4-4.0); Lymphocytes % 36.5 % (21.2-54.2); Mean Corpuscular HGB Conc 30.5 GM/DL (32-36); Mean Corpuscular Hemoglobin 28 PG (27-34); Mean Corpuscular Volume 90.5 FL (87-102); Mean Platelet Volume 11.5 FL (9.6-12.0); Monocytes # 0.6 10*3/uL (0.11-0.8); Monocytes % 11.2 % (1.7-12.7); Neutrophils # 2.4 10*3/uL (1.4-7.4); Neutrophils % 48.3 % (38.7-73.9); Platelet Count 172 T/CUMM (130-400)
[2018-05-31 23:26] LABS: Alanine Aminotransferase 58 U/L (16-61); Albumin 3.2 G/DL (3.4-5.0); Alkaline Phosphatase 80 U/L (45-117); Aspartate Amino Transferase 53 U/L (0-37); Bilirubin,Total < 0.39 MG/DL (0.2-1.0); Blood Urea Nitrogen 54 MG/DL (7-18); Glucose 85 MG/DL (74-106); Potassium 4.9 MMOL/L (3.5-5.1); Sodium 143 MMOL/L (136-145); Total Protein 6.5 G/DL (6.4-8.3)
[2018-05-31 23:31] LABS: Partial Thromboplastin Time 30.7 SECS (0-40)
[2018-05-31 23:36] LABS: INR 2.1
[2018-05-31 23:40] LABS: PT Patient Result 22.4 SECS
[2018-05-31] MEDS ORDERED: FUROSEMIDE 20 MG TABLET PO STA (23:56)
[2018-06-01] MEDS ORDERED: hydrALAZINE 20 MG/1 ML VIAL IV STA (01:32)
[2018-06-01] MEDS ORDERED: MORPHINE 4 MG/1 ML VIAL IV PRN (01:50)
[2018-06-01] MEDS ORDERED: ONDANSETRON 4 MG/2 ML VIAL IV PRN (01:50)
[2018-06-01] MEDS ORDERED: DOCUSATE SODIUM 100 MG CAPSULE PO PRN (01:50)
[2018-06-01 03:40] LABS: Basophils % 0.5 % (0.0-0.8); Eosinophils # 0.2 10*3/uL (0.0-0.87); Hematocrit 32.9 VOL% (42.0-52.0); Hemoglobin 10.1 GM/DL (14.0-18.0); Immature Granulocytes % 0.2 %; Immature Granulocytes Absolute 0.01 #; Lymphocytes # 1.6 10*3/uL (1.4-4.0); Lymphocytes % 38.5 % (21.2-54.2); Mean Corpuscular HGB Conc 30.7 GM/DL (32-36); Mean Corpuscular Hemoglobin 28 PG (27-34); Mean Corpuscular Volume 89.9 FL (87-102); Monocytes # 0.4 10*3/uL (0.11-0.8); Monocytes % 9.7 % (1.7-12.7); Neutrophils % 47.1 % (38.7-73.9); Platelet Count 164 T/CUMM (130-400); Red Blood Count 3.66 MC/CUMM (3.8-5.5); White Blood Count 4.2 T/CUMM (4-12)
[2018-06-01 03:56] LABS: Calcium 8.3 MG/DL (8.5-10.1); Osmolality,Calculated 301.8 MOS/KG (273-304); Potassium 4.7 MMOL/L (3.5-5.1)
[2018-06-01] MEDS ORDERED: FUROSEMIDE 40 MG/4 ML VIAL IV SCH (08:00)
[2018-06-01] MEDS ORDERED: ASCORBIC ACID 500 MG TABLET PO SCH (09:00)
[2018-06-01] MEDS ORDERED: Mirabegron [Myrbetriq] 25 MG PO SCH (09:00)
[2018-06-01] MEDS: CALCIUM (CARBONATE)/VITAMIN D 600 MG-400 UNIT TABLET PO SCH (09:25)
[2018-06-01] MEDS: ASPIRIN CHEW 81 MG TABLET PO SCH (09:26)
[2018-06-01] MEDS: MULTIVITAMIN (CENTRUM) TABLET PO SCH (09:26)
[2018-06-01] MEDS: ALLOPURINOL 100 MG TABLET PO SCH ×2 (09:27→21:22)
[2018-06-01] MEDS: LOSARTAN 50 MG TABLET PO SCH (09:28)
[2018-06-01] MEDS: PANTOPRAZOLE 40 MG TABLET PO SCH (09:30)
[2018-06-01] MEDS: CARVEDILOL 25 MG TABLET PO SCH ×2 (09:30→21:22)
[2018-06-01] MEDS: TAMSULOSIN 0.4 MG CAPSULE PO SCH (09:30)
[2018-06-01] MEDS: FUROSEMIDE 40 MG/4 ML VIAL IV SCH (17:36)
[2018-06-01] MEDS: WARFARIN 2.5 MG TABLET PO SCH (17:36)
[2018-06-01] MEDS: ASCORBIC ACID 500 MG TABLET PO SCH (21:22)
[2018-06-01] MEDS: SIMVASTATIN 20 MG TABLET PO SCH (21:22)
[2018-06-02 04:59] LABS: Basophils % 0.2 % (0.0-0.8); Eosinophils # 0.1 10*3/uL (0.0-0.87); Eosinophils % 3.1 % (0.00-10.9); Hematocrit 30.1 VOL% (42.0-52.0); Hemoglobin 9.5 GM/DL (14.0-18.0); Immature Granulocytes % 0.2 %; Immature Granulocytes Absolute 0.01 #; Lymphocytes # 1.6 10*3/uL (1.4-4.0); Lymphocytes % 37.8 % (21.2-54.2); Mean Corpuscular HGB Conc 31.6 GM/DL (32-36); Mean Corpuscular Hemoglobin 28 PG (27-34); Mean Corpuscular Volume 88.5 FL (87-102); Mean Platelet Volume 11.4 FL (9.6-12.0); Monocytes # 0.6 10*3/uL (0.11-0.8); Neutrophils # 1.9 10*3/uL (1.4-7.4); Neutrophils % 45.7 % (38.7-73.9); Platelet Count 155 T/CUMM (130-400); Red Cell Distribution Width 14.8 % (9.3-17.3); White Blood Count 4.2 T/CUMM (4-12)
[2018-06-02 05:25] LABS: Calcium 8.1 MG/DL (8.5-10.1); Potassium 4.1 MMOL/L (3.5-5.1)
[2018-06-02 05:26] LABS: Calcium 8.2 MG/DL (8.5-10.1); Potassium 4.1 MMOL/L (3.5-5.1)
[2018-06-02] MEDS: CARVEDILOL 25 MG TABLET PO SCH ×2 (08:44→21:27)
[2018-06-02] MEDS: TAMSULOSIN 0.4 MG CAPSULE PO SCH (08:44)
[2018-06-02] MEDS: ASCORBIC ACID 500 MG TABLET PO SCH ×2 (08:44→21:27)
[2018-06-02] MEDS: MULTIVITAMIN (CENTRUM) TABLET PO SCH (08:44)
[2018-06-02] MEDS: CALCIUM (CARBONATE)/VITAMIN D 600 MG-400 UNIT TABLET PO SCH (08:44)
[2018-06-02] MEDS: ALLOPURINOL 100 MG TABLET PO SCH ×2 (08:45→21:27)
[2018-06-02] MEDS: LOSARTAN 50 MG TABLET PO SCH (08:46)
[2018-06-02] MEDS: ASPIRIN CHEW 81 MG TABLET PO SCH (08:46)
[2018-06-02] MEDS: PANTOPRAZOLE 40 MG TABLET PO SCH (08:46)
[2018-06-02] MEDS: FUROSEMIDE 40 MG/4 ML VIAL IV SCH ×2 (08:53→16:40)
[2018-06-02] MEDS: ACETAMINOPHEN 325 MG TABLET PO PRN ×2 (11:06→23:46)
[2018-06-02 11:49] LABS: Basophils % 0.5 % (0.0-0.8); Eosinophils # 0.1 10*3/uL (0.0-0.87); Eosinophils % 2.9 % (0.00-10.9); Hemoglobin 9.8 GM/DL (14.0-18.0); Immature Granulocytes % 0.2 %; Immature Granulocytes Absolute 0.01 #; Lymphocytes # 1.5 10*3/uL (1.4-4.0); Lymphocytes % 35.8 % (21.2-54.2); Mean Corpuscular HGB Conc 30.6 GM/DL (32-36); Mean Corpuscular Hemoglobin 28 PG (27-34); Mean Corpuscular Volume 90.1 FL (87-102); Mean Platelet Volume 9.7 FL (9.6-12.0); Monocytes # 0.5 10*3/uL (0.11-0.8); Monocytes % 12.3 % (1.7-12.7); Neutrophils % 48.3 % (38.7-73.9); Platelet Count 141 T/CUMM (130-400); Red Blood Count 3.55 MC/CUMM (3.8-5.5); Red Cell Distribution Width 14.8 % (9.3-17.3); White Blood Count 4.1 T/CUMM (4-12)
[2018-06-02] MEDS: WARFARIN 2.5 MG TABLET PO SCH (18:11)
[2018-06-02] MEDS: SIMVASTATIN 20 MG TABLET PO SCH (21:27)
[2018-06-03 04:28] LABS: INR 1.4; PT Patient Result 15.5 SECS; Partial Thromboplastin Time 27.9 SECS (0-40)
[2018-06-03 04:35] LABS: Calcium 8.1 MG/DL (8.5-10.1); Osmolality,Calculated 301.1 MOS/KG (273-304); Potassium 3.8 MMOL/L (3.5-5.1)
[2018-06-03 07:40] VITALS: BP 124/95
[2018-06-03] MEDS ORDERED: hydrALAZINE 25 MG TABLET ONE (08:22)
[2018-06-03] MEDS ORDERED: FUROSEMIDE 80 MG TABLET PO SCH (09:00)
[2018-06-03] MEDS: CARVEDILOL 25 MG TABLET PO SCH (09:02)
[2018-06-03] MEDS: ASCORBIC ACID 500 MG TABLET PO SCH (09:02)
[2018-06-03] MEDS: CALCIUM (CARBONATE)/VITAMIN D 600 MG-400 UNIT TABLET PO SCH (09:02)
[2018-06-03] MEDS: TAMSULOSIN 0.4 MG CAPSULE PO SCH (09:02)
[2018-06-03] MEDS: PANTOPRAZOLE 40 MG TABLET PO SCH (09:02)
[2018-06-03] MEDS: LOSARTAN 50 MG TABLET PO SCH (09:02)
[2018-06-03] MEDS: MULTIVITAMIN (CENTRUM) TABLET PO SCH (09:03)
[2018-06-03] MEDS: ASPIRIN CHEW 81 MG TABLET PO SCH (09:03)
[2018-06-03] MEDS: FUROSEMIDE 40 MG/4 ML VIAL IV SCH (09:03)
[2018-06-03] MEDS: ALLOPURINOL 100 MG TABLET PO SCH (09:03)
[2018-06-04] MEDS ORDERED: WARFARIN 5 MG TABLET PO SCH (18:00)
== END 2018-06-03 11:38 | disposition home or self-care (01) | DRG 291 ==
LOC: N.ED 21:09 → SUATTDRO 06-01 01:28 → N.EDINP 06-01 01:28 → N.2E 06-01 16:03
PROVIDERS: ADMIT Internal Medicine; ATTEND Hospitalist

== ENCOUNTER 2018-11-23 05:51 | Inpatient (IN) ==
[2018-11-15 13:08] LABS: Basophils % 0.7 % (0.0-0.8); Eosinophils # 0.1 10*3/uL (0.0-0.87); Eosinophils % 2.8 % (0.00-10.9); Hematocrit 32.6 VOL% (42.0-52.0); Hemoglobin 10.3 GM/DL (14.0-18.0); Immature Granulocytes % 0.4 %; Immature Granulocytes Absolute 0.02 #; Lymphocytes # 1.2 10*3/uL (1.4-4.0); Lymphocytes % 25.9 % (21.2-54.2); Mean Corpuscular HGB Conc 31.6 GM/DL (32-36); Mean Corpuscular Volume 92.6 FL (87-102); Mean Platelet Volume 10.2 FL (9.6-12.0); Monocytes % 9.4 % (1.7-12.7); Neutrophils % 60.8 % (38.7-73.9); Platelet Count 146 T/CUMM (130-400); Red Blood Count 3.52 MC/CUMM (3.8-5.5); Red Cell Distribution Width 14.7 % (9.3-17.3); White Blood Count 4.6 T/CUMM (4-12)
[2018-11-15 13:10] LABS: Apearance,Urine CLEAR (Clear); Bilirubin,Urine Negative (Negative); Blood, Urine Negative (Negative); Glucose,Urine (UA) Negative (Negative); Ketones,Urine Negative (Negative); Nitrite,Urine Negative (Negative); Protein,Urine 100 MG/DL; RBC,Urine 1 /HPF (0-4); Urine Color Straw (Yellow); Urine Specific Gravity 1.012 (1.001-1.035); Urine Urobilinogen < 2.0 EU/DL (0.2-1.0); WBC,Urine 1 /HPF (0-6)
[2018-11-15 13:17] LABS: Partial Thromboplastin Time 30.5 SECS (20.8-36.0)
[2018-11-15 13:32] LABS: Albumin 3.2 G/DL (3.4-5.0); Bilirubin,Total 0.4 MG/DL (0.2-1.0); Osmolality,Calculated 307.8 MOS/KG (273-304); Total Protein 6.7 G/DL (6.4-8.3)
[2018-11-15 14:20] LABS: PT Patient Result 21.4 SECS (9.6-12.2)
[2018-11-23] MEDS ORDERED: GABAPENTIN 400 MG CAPSULE PO ONE (06:00)
[2018-11-23] MEDS ORDERED: DIAZEPAM 5 MG TABLET PO ONE (06:00)
[2018-11-23] MEDS ORDERED: FAMOTIDINE 20 MG TABLET PO ONE (06:00)
[2018-11-23] MEDS ORDERED: ACETAMINOPHEN 500 MG TABLET PO ONE (06:00)
[2018-11-23] MEDS ORDERED: ceFAZolin 1,000 MG in SYRINGE 1 EACH IV ONE (06:30)
[2018-11-23] MEDS ORDERED: VANCOMYCIN INJ 1,000 MG in SODIUM CHLORIDE 0.9% 250 ML IV ONE (06:30)
[2018-11-23 06:51] LABS: INR 1.2; PT Patient Result 13.1 SECS (9.6-12.2); Partial Thromboplastin Time 25.8 SECS (20.8-36.0)
[2018-11-23] MEDS ORDERED: ceFAZolin 1,000 MG VIAL ONE (07:13)
[2018-11-23] MEDS ORDERED: GABAPENTIN 400 MG CAPSULE ONE (07:13)
[2018-11-23] MEDS ORDERED: FAMOTIDINE 20 MG TABLET ONE (07:13)
[2018-11-23] MEDS ORDERED: DIAZEPAM 5 MG TABLET ONE (07:14)
[2018-11-23] MEDS ORDERED: ACETAMINOPHEN 500 MG TABLET ONE (07:14)
[2018-11-23] MEDS ORDERED: VANCOMYCIN 1,000 MG VIAL ONE (07:14)
[2018-11-23] MEDS ORDERED: ACETAMINOPHEN 500 MG TABLET PO STA (07:26)
[2018-11-23] MEDS: SODIUM CHLORIDE 0.9% 1,000 ML IV SCH ×2 (07:27→13:23)
[2018-11-23] MEDS ORDERED: MIDAZOLAM 2 MG/2 ML VIAL ONE (07:52)
[2018-11-23] MEDS ORDERED: PROMETHAZINE 25 MG/1 ML VIAL IM PRN (09:59)
[2018-11-23] MEDS ORDERED: MORPHINE 4 MG/1 ML VIAL IV PRN ×2 (09:59→11:15)
[2018-11-23] MEDS ORDERED: BISACODYL 10 MG SUPP RECTAL PRN (09:59)
[2018-11-23] MEDS ORDERED: diphenhydrAMINE CAP 25 MG CAPSULE PO PRN (09:59)
[2018-11-23] MEDS ORDERED: LACTULOSE 20 GM/30 ML UDCUP PO PRN (09:59)
[2018-11-23] MEDS ORDERED: TEMAZEPAM 7.5 MG CAPSULE PO PRN (09:59)
[2018-11-23] MEDS ORDERED: SEVOFLURANE 1 UNIT/15 MINUTE INH ONE (10:00)
[2018-11-23] MEDS ORDERED: LIDOCAINE 100 MG/5 ML SYRINGE ONE (10:00)
[2018-11-23] MEDS ORDERED: fentaNYL 100 MCG/2 ML VIAL ONE (10:00)
[2018-11-23] MEDS ORDERED: propofoL 200 MG/20 ML VIAL IV ONE (10:00)
[2018-11-23] MEDS ORDERED: PHENYLEPHRINE 1 MG/10 ML SYRINGE IV ONE (10:01)
[2018-11-23] MEDS ORDERED: ACETAMINOPHEN 500 MG TABLET PO PRN (10:02)
[2018-11-23] MEDS ORDERED: TRANEXAMIC ACID 1,000 MG/10 ML VIAL ONE (10:03)
[2018-11-23] MEDS ORDERED: ONDANSETRON 4 MG/2 ML VIAL IV PRN (10:32)
[2018-11-23] MEDS: HYDROmorphone 2 MG/1 ML VIAL IV PRN ×4 (10:35→11:03)
[2018-11-23] MEDS: ceFAZolin 2,000 MG in PREMIX 1 EACH IV SCH (16:15)
[2018-11-23] MEDS: ONDANSETRON 4 MG/2 ML VIAL IV PRN (18:29)
[2018-11-23] MEDS: SIMVASTATIN 20 MG TABLET PO SCH (20:35)
[2018-11-23] MEDS: carvediloL 25 MG TABLET PO SCH (20:35)
[2018-11-23] MEDS: ASCORBIC ACID 500 MG TABLET PO SCH ×2 (20:35→20:38)
[2018-11-23] MEDS: allopurinoL 100 MG TABLET PO SCH (20:35)
[2018-11-23] MEDS: MULTIVITAMIN (CENTRUM) TABLET PO SCH (20:35)
[2018-11-23] MEDS: DOCUSATE SODIUM 100 MG CAPSULE PO SCH (20:35)
[2018-11-24] MEDS: SODIUM CHLORIDE 0.9% 1,000 ML IV SCH (00:52)
[2018-11-24] MEDS: ceFAZolin 2,000 MG in PREMIX 1 EACH IV SCH (00:53)
[2018-11-24 04:52] LABS: Basophils % 0.3 % (0.0-0.8); Hematocrit 30.5 VOL% (42.0-52.0); Hemoglobin 9.4 GM/DL (14.0-18.0); Immature Granulocytes % 0.4 %; Immature Granulocytes Absolute 0.03 #; Lymphocytes % 13.4 % (21.2-54.2); Mean Corpuscular HGB Conc 30.8 GM/DL (32-36); Mean Corpuscular Volume 93.6 FL (87-102); Mean Platelet Volume 11.3 FL (9.6-12.0); Monocytes % 10.5 % (1.7-12.7); NRBC # 0.02 10*3/uL; Neutrophils % 75.4 % (38.7-73.9); Platelet Count 139 T/CUMM (130-400); Red Blood Count 3.26 MC/CUMM (3.8-5.5); Red Cell Distribution Width 15.1 % (9.3-17.3); White Blood Count 7.2 T/CUMM (4-12)
[2018-11-24 05:42] LABS: Osmolality,Calculated 308.8 MOS/KG (273-304)
[2018-11-24] MEDS: FUROSEMIDE 80 MG TABLET PO SCH (08:56)
[2018-11-24] MEDS: ASPIRIN CHEW 81 MG TABLET PO SCH (08:57)
[2018-11-24] MEDS: CHOLECALCIFEROL 400 UNIT TABLET PO SCH (08:57)
[2018-11-24] MEDS: ASCORBIC ACID 500 MG TABLET PO SCH ×2 (08:57→20:45)
[2018-11-24] MEDS: DOCUSATE SODIUM 100 MG CAPSULE PO SCH ×2 (08:57→20:45)
[2018-11-24] MEDS: carvediloL 25 MG TABLET PO SCH ×2 (08:58→20:45)
[2018-11-24] MEDS: MAGNESIUM CHLORIDE 64 MG TABLET PO SCH (08:58)
[2018-11-24] MEDS: TAMSULOSIN 0.4 MG CAPSULE PO SCH (10:08)
[2018-11-24] MEDS: ONDANSETRON 4 MG/2 ML VIAL IV PRN (11:49)
[2018-11-24] MEDS: SODIUM BICARBONATE 650 MG TABLET PO SCH ×2 (13:49→20:45)
[2018-11-24] MEDS: WARFARIN 2.5 MG TABLET PO SCH (17:33)
[2018-11-24] MEDS: SIMVASTATIN 20 MG TABLET PO SCH (20:45)
[2018-11-24] MEDS: allopurinoL 100 MG TABLET PO SCH (20:45)
[2018-11-24] MEDS: MULTIVITAMIN (CENTRUM) TABLET PO SCH (20:45)
[2018-11-25] MEDS: SODIUM CHLORIDE 0.9% 1,000 ML IV SCH (07:30)
[2018-11-25] MEDS: MAGNESIUM CHLORIDE 64 MG TABLET PO SCH (08:59)
[2018-11-25] MEDS: ASCORBIC ACID 500 MG TABLET PO SCH ×2 (08:59→20:55)
[2018-11-25] MEDS: CHOLECALCIFEROL 400 UNIT TABLET PO SCH (08:59)
[2018-11-25] MEDS: DOCUSATE SODIUM 100 MG CAPSULE PO SCH ×2 (08:59→20:56)
[2018-11-25] MEDS: FUROSEMIDE 80 MG TABLET PO SCH (08:59)
[2018-11-25] MEDS: ASPIRIN CHEW 81 MG TABLET PO SCH (08:59)
[2018-11-25] MEDS: TAMSULOSIN 0.4 MG CAPSULE PO SCH (09:00)
[2018-11-25] MEDS: MAGNESIUM HYDROXIDE SUSP 30 ML UDCUP PO PRN ×2 (09:00→15:12)
[2018-11-25] MEDS: SODIUM BICARBONATE 650 MG TABLET PO SCH ×2 (09:00→20:55)
[2018-11-25] MEDS: carvediloL 25 MG TABLET PO SCH ×2 (09:00→20:56)
[2018-11-25] MEDS: WARFARIN 2.5 MG TABLET PO SCH (17:10)
[2018-11-25] MEDS: allopurinoL 100 MG TABLET PO SCH (20:55)
[2018-11-25] MEDS: MULTIVITAMIN (CENTRUM) TABLET PO SCH (20:55)
[2018-11-25] MEDS: SIMVASTATIN 20 MG TABLET PO SCH (20:56)
[2018-11-26] MEDS ORDERED: BISACODYL 5 MG TABLET PO ONE (07:00)
[2018-11-26] MEDS ORDERED: POLYETHYLENE GLYCOL POWDER 17 GM PACK PO SCH (09:00)
[2018-11-26] MEDS: SODIUM CHLORIDE 0.9% 1,000 ML IV SCH (09:29)
[2018-11-26] MEDS: carvediloL 25 MG TABLET PO SCH (10:22)
[2018-11-26] MEDS: TAMSULOSIN 0.4 MG CAPSULE PO SCH (10:22)
[2018-11-26] MEDS: DOCUSATE SODIUM 100 MG CAPSULE PO SCH (10:22)
[2018-11-26] MEDS: CHOLECALCIFEROL 400 UNIT TABLET PO SCH (10:22)
[2018-11-26] MEDS: SODIUM BICARBONATE 650 MG TABLET PO SCH (10:22)
[2018-11-26] MEDS: ASCORBIC ACID 500 MG TABLET PO SCH (10:22)
[2018-11-26] MEDS: MAGNESIUM CHLORIDE 64 MG TABLET PO SCH (10:22)
[2018-11-26] MEDS: FUROSEMIDE 80 MG TABLET PO SCH (10:22)
[2018-11-26] MEDS: ASPIRIN CHEW 81 MG TABLET PO SCH (10:23)
[2018-11-26] MEDS ORDERED: SODIUM PHOSPHATE ENEMA 133 ML BOTTLE RECTAL ONE (11:22)
[2018-11-26 12:04] VITALS: BP 103/65
[2018-11-26] MEDS ORDERED: WARFARIN 5 MG TABLET PO SCH (18:00)
== END 2018-11-26 13:15 | disposition swing bed (61) | DRG 470 ==
LOC: N.OR 05:51 → N.SDSINP 05:52 → N.3E 11:11
PROVIDERS: ADMIT Orthopaedic Surgery; ATTEND Orthopaedic Surgery

== ENCOUNTER 2019-05-02 13:14 | Inpatient (IN) ==
[2019-05-02 15:39] LABS: Basophils % 0.5 % (0.0-0.8); Eosinophils # 0.2 10*3/uL (0.0-0.87); Eosinophils % 4.1 % (0.00-10.9); Hematocrit 29.6 VOL% (42.0-52.0); Immature Granulocytes % 0.5 %; Immature Granulocytes Absolute 0.02 #; Lymphocytes % 23.2 % (21.2-54.2); Mean Corpuscular HGB Conc 30.4 GM/DL (32-36); Mean Corpuscular Volume 92.5 FL (87-102); Mean Platelet Volume 10.2 FL (9.6-12.0); Monocytes % 8.3 % (1.7-12.7); Neutrophils % 63.4 % (38.7-73.9); Platelet Count 134 T/CUMM (130-400); Red Cell Distribution Width 15.9 % (9.3-17.3); White Blood Count 4.4 T/CUMM (4-12)
[2019-05-02 16:01] LABS: Albumin 2.9 G/DL (3.4-5.0); Calcium 8.6 MG/DL (8.5-10.1); Total Protein 6.5 G/DL (6.4-8.3)
[2019-05-02] MEDS ORDERED: MAGNESIUM SULF RIDER 2 GM in PREMIX 1 EACH IV PRN (18:10)
[2019-05-02] MEDS ORDERED: ALBUTEROL/IPRATROPIUM 3 ML NEB RESP TX PRN (18:10)
[2019-05-02] MEDS ORDERED: POTASSIUM CHLORIDE 20 MEQ TABLET PO PRN (18:10)
[2019-05-02] MEDS ORDERED: ONDANSETRON 4 MG/2 ML VIAL IV PRN (18:10)
[2019-05-02] MEDS ORDERED: MAGNESIUM SULF RIDER 4 GM in PREMIX 1 EACH IV PRN (18:10)
[2019-05-02 18:40] LABS: INR 6.9
[2019-05-02] MEDS ORDERED: ENOXAPARIN 30 MG/0.3 ML SYRINGE SUBCUT SCH (21:00)
[2019-05-02] MEDS: FUROSEMIDE 40 MG/4 ML VIAL IV SCH (22:07)
[2019-05-03] MEDS ORDERED: hydrALAZINE 20 MG/1 ML VIAL IV PRN (01:14)
[2019-05-03 06:17] LABS: Basophils % 0.2 % (0.0-0.8); Eosinophils # 0.2 10*3/uL (0.0-0.87); Eosinophils % 4.2 % (0.00-10.9); Hemoglobin 8.2 GM/DL (14.0-18.0); Immature Granulocytes % 0.2 %; Immature Granulocytes Absolute 0.01 #; Lymphocytes # 1.4 10*3/uL (1.4-4.0); Lymphocytes % 33.3 % (21.2-54.2); Mean Corpuscular HGB Conc 31.5 GM/DL (32-36); Mean Corpuscular Volume 90.3 FL (87-102); Mean Platelet Volume 10.4 FL (9.6-12.0); Monocytes % 9.7 % (1.7-12.7); Neutrophils % 52.4 % (38.7-73.9); Platelet Count 127 T/CUMM (130-400); Red Blood Count 2.88 MC/CUMM (3.8-5.5); White Blood Count 4.3 T/CUMM (4-12)
[2019-05-03 06:34] LABS: Albumin 2.7 G/DL (3.4-5.0); Bilirubin,Total 0.7 MG/DL (0.2-1.0); Calcium 8.8 MG/DL (8.5-10.1); Osmolality,Calculated 308.3 MOS/KG (273-304); Risk Ratio 2.13; Thyroid Stimulating Hormone 2.15 uIU/ml (0.358-3.74)
[2019-05-03 07:26] LABS: INR 6.5
[2019-05-03] MEDS: FUROSEMIDE 40 MG/4 ML VIAL IV SCH ×2 (09:19→16:34)
[2019-05-03] MEDS: PANTOPRAZOLE 40 MG TABLET PO SCH (09:22)
[2019-05-03] MEDS: carvediloL 25 MG TABLET PO SCH ×2 (11:38→16:34)
[2019-05-03 12:23] LABS: Ferritin 158.1 ng/ml (26-388)
[2019-05-03 12:45] LABS: Basophils % 0.5 % (0.0-0.8); Eosinophils # 0.2 10*3/uL (0.0-0.87); Eosinophils % 4.3 % (0.00-10.9); Hematocrit 30.2 VOL% (42.0-52.0); Hemoglobin 9.3 GM/DL (14.0-18.0); Immature Granulocytes % 0.5 %; Immature Granulocytes Absolute 0.02 #; Lymphocytes # 1.1 10*3/uL (1.4-4.0); Lymphocytes % 24.2 % (21.2-54.2); Mean Corpuscular HGB Conc 30.8 GM/DL (32-36); Mean Corpuscular Volume 92.6 FL (87-102); NRBC # 0.02 10*3/uL; Neutrophils % 61.5 % (38.7-73.9); Platelet Count 131 T/CUMM (130-400); Red Blood Count 3.26 MC/CUMM (3.8-5.5); Red Cell Distribution Width 15.9 % (9.3-17.3); White Blood Count 4.4 T/CUMM (4-12)
[2019-05-03 12:51] LABS: Folate 13.9 NG/ML (5.4-24.0); Vitamin B12 543 PG/ML (211-911)
[2019-05-03] MEDS: ISOSORBIDE MONONITRATE 30 MG TABLET PO SCH (14:32)
[2019-05-03] MEDS ORDERED: FUROSEMIDE 40 MG/4 ML VIAL IV SCH (16:00)
[2019-05-03] MEDS: metOLazone 5 MG TABLET PO SCH (16:34)
[2019-05-03 18:35] LABS: Sedimentation Rate-Westergren 25 MM/HR (0-20)
[2019-05-03] MEDS: SIMVASTATIN 20 MG TABLET PO SCH (20:34)
[2019-05-03] MEDS: ASCORBIC ACID 500 MG TABLET PO SCH (20:34)
[2019-05-03] MEDS: MULTIVITAMIN (CENTRUM) TABLET PO SCH (20:34)
[2019-05-04 05:32] LABS: Basophils % 0.4 % (0.0-0.8); Eosinophils # 0.2 10*3/uL (0.0-0.87); Eosinophils % 4.9 % (0.00-10.9); Hematocrit 26.9 VOL% (42.0-52.0); Hemoglobin 8.5 GM/DL (14.0-18.0); Immature Granulocytes % 0.4 %; Immature Granulocytes Absolute 0.02 #; Lymphocytes # 1.3 10*3/uL (1.4-4.0); Lymphocytes % 27.1 % (21.2-54.2); Mean Corpuscular HGB Conc 31.6 GM/DL (32-36); Mean Corpuscular Volume 90.6 FL (87-102); Monocytes % 9.9 % (1.7-12.7); Neutrophils % 57.3 % (38.7-73.9); Platelet Count 144 T/CUMM (130-400); Red Blood Count 2.97 MC/CUMM (3.8-5.5); Red Cell Distribution Width 15.9 % (9.3-17.3); White Blood Count 4.7 T/CUMM (4-12)
[2019-05-04 05:50] LABS: Calcium 8.6 MG/DL (8.5-10.1)
[2019-05-04 05:55] LABS: Albumin 2.7 G/DL (3.4-5.0); Bilirubin,Total 0.8 MG/DL (0.2-1.0); Calcium 8.9 MG/DL (8.5-10.1)
[2019-05-04 07:33] LABS: INR 3.7
[2019-05-04 07:34] LABS: PT Patient Result 39.5 SECS (9.6-12.2)
[2019-05-04] MEDS: metOLazone 5 MG TABLET PO SCH (08:53)
[2019-05-04] MEDS: FUROSEMIDE 40 MG/4 ML VIAL IV SCH ×2 (08:53→17:06)
[2019-05-04] MEDS: PANTOPRAZOLE 40 MG TABLET PO SCH (08:53)
[2019-05-04] MEDS: carvediloL 25 MG TABLET PO SCH ×2 (08:53→17:07)
[2019-05-04] MEDS: MAGNESIUM CHLORIDE 64 MG TABLET PO SCH (08:53)
[2019-05-04] MEDS: TAMSULOSIN 0.4 MG CAPSULE PO SCH (08:53)
[2019-05-04] MEDS: ASCORBIC ACID 500 MG TABLET PO SCH ×2 (08:53→21:20)
[2019-05-04] MEDS: ISOSORBIDE MONONITRATE 30 MG TABLET PO SCH (08:53)
[2019-05-04] MEDS: SIMVASTATIN 20 MG TABLET PO SCH (21:20)
[2019-05-04] MEDS: MULTIVITAMIN (CENTRUM) TABLET PO SCH (21:21)
[2019-05-05 06:11] LABS: Basophils % 0.2 % (0.0-0.8); Eosinophils # 0.2 10*3/uL (0.0-0.87); Eosinophils % 4.6 % (0.00-10.9); Hematocrit 25.8 VOL% (42.0-52.0); Hemoglobin 8.1 GM/DL (14.0-18.0); Immature Granulocytes % 0.2 %; Immature Granulocytes Absolute 0.01 #; Lymphocytes # 1.2 10*3/uL (1.4-4.0); Lymphocytes % 25.4 % (21.2-54.2); Mean Corpuscular HGB Conc 31.4 GM/DL (32-36); Mean Corpuscular Volume 90.2 FL (87-102); Mean Platelet Volume 11.4 FL (9.6-12.0); Monocytes % 9.3 % (1.7-12.7); Neutrophils % 60.3 % (38.7-73.9); Platelet Count 140 T/CUMM (130-400); Red Blood Count 2.86 MC/CUMM (3.8-5.5); Red Cell Distribution Width 15.9 % (9.3-17.3); White Blood Count 4.6 T/CUMM (4-12)
[2019-05-05 06:20] LABS: INR 2.3
[2019-05-05 06:28] LABS: PT Patient Result 24.9 SECS (9.6-12.2)
[2019-05-05 06:30] LABS: Calcium 8.8 MG/DL (8.5-10.1)
[2019-05-05 06:58] LABS: Albumin 2.8 G/DL (3.4-5.0); Bilirubin,Total 0.5 MG/DL (0.2-1.0); Calcium 8.7 MG/DL (8.5-10.1); Osmolality,Calculated 316.8 MOS/KG (273-304); Total Protein 5.9 G/DL (6.4-8.3)
[2019-05-05] MEDS ORDERED: metOLazone 2.5 MG TABLET PO SCH (08:46)
[2019-05-05] MEDS: FUROSEMIDE 40 MG/4 ML VIAL IV SCH (08:53)
[2019-05-05] MEDS ORDERED: FUROSEMIDE 80 MG TABLET PO SCH (09:00)
[2019-05-05] MEDS: ASCORBIC ACID 500 MG TABLET PO SCH (09:24)
[2019-05-05] MEDS: MAGNESIUM CHLORIDE 64 MG TABLET PO SCH (09:25)
[2019-05-05] MEDS: TAMSULOSIN 0.4 MG CAPSULE PO SCH (09:25)
[2019-05-05] MEDS: carvediloL 25 MG TABLET PO SCH (09:25)
[2019-05-05] MEDS: ISOSORBIDE MONONITRATE 30 MG TABLET PO SCH (09:25)
[2019-05-05] MEDS: PANTOPRAZOLE 40 MG TABLET PO SCH (09:25)
[2019-05-05 11:49] VITALS: BP 134/84
== END 2019-05-05 12:50 | disposition home or self-care (01) | DRG 291 ==
LOC: N.ED 13:14 → N.EDINP 18:10 → N.TELES 20:06
PROVIDERS: ADMIT Family Medicine; ATTEND Family Medicine

== ENCOUNTER 2019-06-02 11:03 | Inpatient (IN) ==
[~2019-06-02 11:03] MED LIST: ceFAZolin 1,000 MG in SYRINGE 1 EACH IV ONE
[2019-06-02] MEDS ORDERED: DEXTROSE 50% 25 GM/50 ML VIAL IV PRN (13:26)
[2019-06-02] MEDS ORDERED: LACTULOSE 20 GM/30 ML UDCUP PO PRN (13:26)
[2019-06-02] MEDS ORDERED: GLUCAGON 1 MG VIAL IM PRN (13:26)
[2019-06-02] MEDS ORDERED: ALBUTEROL 2.5 MG/3 ML NEB RESP TX PRN (13:26)
[2019-06-02] MEDS ORDERED: hydrALAZINE 20 MG/1 ML VIAL IV PRN (13:26)
[2019-06-02 13:58] LABS: Basophils % 0.5 % (0.0-0.8); Eosinophils # 0.1 10*3/uL (0.0-0.87); Eosinophils % 3.2 % (0.00-10.9); Hematocrit 29.2 VOL% (42.0-52.0); Hemoglobin 8.9 GM/DL (14.0-18.0); Immature Granulocytes % 0.2 %; Immature Granulocytes Absolute 0.01 #; Lymphocytes % 24.2 % (21.2-54.2); Mean Corpuscular HGB Conc 30.5 GM/DL (32-36); Mean Corpuscular Volume 92.7 FL (87-102); Mean Platelet Volume 10.7 FL (9.6-12.0); Monocytes % 10.7 % (1.7-12.7); Neutrophils % 61.2 % (38.7-73.9); Platelet Count 139 T/CUMM (130-400); Red Blood Count 3.15 MC/CUMM (3.8-5.5); Red Cell Distribution Width 14.7 % (9.3-17.3)
[2019-06-02] MEDS ORDERED: DEXTROSE 10% 250 ML BAG IV PRN (13:58)
[2019-06-02 14:14] LABS: Albumin 3.3 G/DL (3.4-5.0); Bilirubin,Total 0.4 MG/DL (0.2-1.0); Calcium 9.3 MG/DL (8.5-10.1); Osmolality,Calculated 308.8 MOS/KG (273-304); Total Protein 7.4 G/DL (6.4-8.3)
[2019-06-02 14:15] LABS: INR 2.7
[2019-06-02 14:16] LABS: PT Patient Result 28.8 SECS (9.6-12.2)
[2019-06-02] MEDS ORDERED: allopurinoL 100 MG TABLET PO PRN (14:19)
[2019-06-02] MEDS ORDERED: predniSONE 5 MG TABLET PO PRN (14:19)
[2019-06-02] MEDS: ASCORBIC ACID 500 MG TABLET PO SCH (20:40)
[2019-06-02] MEDS: carvediloL 25 MG TABLET PO SCH (20:41)
[2019-06-02] MEDS: MULTIVITAMIN (CENTRUM) TABLET PO SCH (20:41)
[2019-06-02] MEDS: SIMVASTATIN 20 MG TABLET PO SCH (20:41)
[2019-06-03 05:33] LABS: Basophils % 0.2 % (0.0-0.8); Eosinophils # 0.2 10*3/uL (0.0-0.87); Eosinophils % 4.4 % (0.00-10.9); Hematocrit 28.7 VOL% (42.0-52.0); Immature Granulocytes % 0.2 %; Immature Granulocytes Absolute 0.01 #; Lymphocytes # 1.4 10*3/uL (1.4-4.0); Lymphocytes % 28.7 % (21.2-54.2); Mean Corpuscular HGB Conc 31.4 GM/DL (32-36); Mean Corpuscular Volume 89.7 FL (87-102); Mean Platelet Volume 11.9 FL (9.6-12.0); Monocytes % 10.6 % (1.7-12.7); Neutrophils % 55.9 % (38.7-73.9); Platelet Count 149 T/CUMM (130-400); Red Cell Distribution Width 14.6 % (9.3-17.3)
[2019-06-03 05:45] LABS: INR 2.8
[2019-06-03 05:54] LABS: PT Patient Result 30.6 SECS (9.6-12.2)
[2019-06-03 06:16] LABS: Blood Urea Nitrogen 114 MG/DL (7-18); Calcium 9.2 MG/DL (8.5-10.1); Estimated Glom Filtration Rate 7 ML/MIN; Glucose 94 MG/DL (74-106); HDL Cholesterol 49 MG/DL (40-60); Osmolality,Calculated 312.5 MOS/KG (273-304); Risk Ratio 1.67; Triglycerides < 8 MG/DL (2-150); VLDL CHOLESTEROL 1.6 MG/DL
[2019-06-03 07:45] LABS: Hepatitis B Core IgM Quant < 0.05 Index; Hepatitis B Surface Ag Quant 0.12 Index; Hepatitis B Surface Ag Result Negative (Negative); Hepatitis C Virus Ab Quant 0.42 Index; Hepatitis C Virus Ab Result Negative (Negative)
[2019-06-03] MEDS: carvediloL 25 MG TABLET PO SCH ×2 (08:57→20:26)
[2019-06-03] MEDS ORDERED: FUROSEMIDE 80 MG TABLET PO SCH (09:00)
[2019-06-03] MEDS ORDERED: metOLazone 2.5 MG TABLET PO SCH (09:00)
[2019-06-03] MEDS: TAMSULOSIN 0.4 MG CAPSULE PO SCH (09:01)
[2019-06-03] MEDS: PANTOPRAZOLE 40 MG TABLET PO SCH (09:01)
[2019-06-03] MEDS: ASCORBIC ACID 500 MG TABLET PO SCH ×2 (09:01→20:27)
[2019-06-03] MEDS: CHOLECALCIFEROL 400 UNIT TABLET PO SCH (09:01)
[2019-06-03] MEDS: MAGNESIUM CHLORIDE 64 MG TABLET PO SCH (09:01)
[2019-06-03] MEDS ORDERED: ceFAZolin 1,000 MG in SYRINGE 1 EACH IV ONE (10:00)
[2019-06-03] MEDS ORDERED: LIDOCAINE 1%/EPI INJ 20 ML VIAL ONE (11:08)
[2019-06-03] MEDS ORDERED: BUPIVACAINE MPF 0.25% 30 ML VIAL ONE (11:08)
[2019-06-03] MEDS ORDERED: HEPARIN 5,000 UNIT/1 ML VIAL ONE (11:08)
[2019-06-03] MEDS ORDERED: LIDOCAINE 2% 5 ML VIAL ONE (12:28)
[2019-06-03] MEDS ORDERED: propofoL 200 MG/20 ML VIAL IV ONE (12:28)
[2019-06-03] MEDS ORDERED: fentaNYL 100 MCG/2 ML VIAL ONE (12:29)
[2019-06-03] MEDS ORDERED: SODIUM CHLORIDE 0.9% 250 ML IV ONE (12:29)
[2019-06-03] MEDS ORDERED: HEPARIN 10,000 UNIT/10 ML VIAL IV PRN (13:38)
[2019-06-03] MEDS: MULTIVITAMIN (CENTRUM) TABLET PO SCH (20:26)
[2019-06-03] MEDS: SIMVASTATIN 20 MG TABLET PO SCH (20:26)
[2019-06-03] MEDS: ACETAMINOPHEN 325 MG TABLET PO PRN (20:31)
[2019-06-04 04:41] LABS: Basophils % 0.4 % (0.0-0.8); Eosinophils # 0.2 10*3/uL (0.0-0.87); Eosinophils % 2.8 % (0.00-10.9); Hematocrit 28.1 VOL% (42.0-52.0); Hemoglobin 8.7 GM/DL (14.0-18.0); Immature Granulocytes % 0.2 %; Immature Granulocytes Absolute 0.01 #; Lymphocytes # 1.4 10*3/uL (1.4-4.0); Lymphocytes % 24.5 % (21.2-54.2); Mean Corpuscular Volume 92.1 FL (87-102); Mean Platelet Volume 11.2 FL (9.6-12.0); Monocytes % 10.6 % (1.7-12.7); Neutrophils % 61.5 % (38.7-73.9); Platelet Count 139 T/CUMM (130-400); Red Blood Count 3.05 MC/CUMM (3.8-5.5); Red Cell Distribution Width 14.6 % (9.3-17.3); White Blood Count 5.7 T/CUMM (4-12)
[2019-06-04 05:17] LABS: Calcium 8.9 MG/DL (8.5-10.1); Osmolality,Calculated 300.7 MOS/KG (273-304)
[2019-06-04 05:56] LABS: INR 2.1
[2019-06-04 05:58] LABS: PT Patient Result 23.1 SECS (9.6-12.2)
[2019-06-04] MEDS: ACETAMINOPHEN 325 MG TABLET PO PRN ×2 (07:19→13:53)
[2019-06-04] MEDS: ASCORBIC ACID 500 MG TABLET PO SCH ×2 (09:04→20:48)
[2019-06-04] MEDS: TAMSULOSIN 0.4 MG CAPSULE PO SCH (09:05)
[2019-06-04] MEDS: PANTOPRAZOLE 40 MG TABLET PO SCH (09:05)
[2019-06-04] MEDS: MAGNESIUM CHLORIDE 64 MG TABLET PO SCH (09:05)
[2019-06-04] MEDS: carvediloL 25 MG TABLET PO SCH ×2 (09:05→20:48)
[2019-06-04] MEDS: CHOLECALCIFEROL 400 UNIT TABLET PO SCH (09:05)
[2019-06-04] MEDS ORDERED: PHYTONADIONE 10 MG/1 ML AMP SUBCUT ONE (10:58)
[2019-06-04] MEDS: MULTIVITAMIN (CENTRUM) TABLET PO SCH (20:48)
[2019-06-04] MEDS: SIMVASTATIN 20 MG TABLET PO SCH (20:48)
[2019-06-05 05:14] LABS: Basophils % 0.2 % (0.0-0.8); Eosinophils # 0.1 10*3/uL (0.0-0.87); Eosinophils % 2.5 % (0.00-10.9); Hematocrit 25.8 VOL% (42.0-52.0); Hemoglobin 7.8 GM/DL (14.0-18.0); Immature Granulocytes % 0.2 %; Immature Granulocytes Absolute 0.01 #; Lymphocytes # 1.5 10*3/uL (1.4-4.0); Lymphocytes % 29.5 % (21.2-54.2); Mean Corpuscular HGB Conc 30.2 GM/DL (32-36); Mean Corpuscular Volume 92.8 FL (87-102); Mean Platelet Volume 11.6 FL (9.6-12.0); Monocytes % 12.2 % (1.7-12.7); Neutrophils % 55.4 % (38.7-73.9); Platelet Count 129 T/CUMM (130-400); Red Blood Count 2.78 MC/CUMM (3.8-5.5); Red Cell Distribution Width 14.5 % (9.3-17.3); White Blood Count 5.2 T/CUMM (4-12)
[2019-06-05 05:33] LABS: Calcium 8.8 MG/DL (8.5-10.1); Osmolality,Calculated 288.7 MOS/KG (273-304)
[2019-06-05 05:40] LABS: INR 1.4; PT Patient Result 15.2 SECS (9.6-12.2)
[2019-06-05] MEDS: ACETAMINOPHEN 325 MG TABLET PO PRN (09:08)
[2019-06-05] MEDS: CHOLECALCIFEROL 400 UNIT TABLET PO SCH (09:08)
[2019-06-05] MEDS: MAGNESIUM CHLORIDE 64 MG TABLET PO SCH (09:08)
[2019-06-05] MEDS: carvediloL 25 MG TABLET PO SCH ×2 (09:08→21:05)
[2019-06-05] MEDS: ASCORBIC ACID 500 MG TABLET PO SCH ×2 (09:08→21:04)
[2019-06-05] MEDS: PANTOPRAZOLE 40 MG TABLET PO SCH (09:08)
[2019-06-05] MEDS: TAMSULOSIN 0.4 MG CAPSULE PO SCH (09:09)
[2019-06-05] MEDS: SIMVASTATIN 20 MG TABLET PO SCH (21:05)
[2019-06-05] MEDS: MULTIVITAMIN (CENTRUM) TABLET PO SCH (21:05)
[2019-06-06 05:36] LABS: INR 1.1; PT Patient Result 12.2 SECS (9.6-12.2)
[2019-06-06] MEDS ORDERED: WARFARIN 10 MG TABLET PO ONE (12:00)
[2019-06-06] MEDS: carvediloL 25 MG TABLET PO SCH (12:41)
[2019-06-06] MEDS: TAMSULOSIN 0.4 MG CAPSULE PO SCH (14:24)
[2019-06-06] MEDS: PANTOPRAZOLE 40 MG TABLET PO SCH (14:24)
[2019-06-06] MEDS: ASCORBIC ACID 500 MG TABLET PO SCH (14:25)
[2019-06-06] MEDS: CHOLECALCIFEROL 400 UNIT TABLET PO SCH (14:25)
[2019-06-06] MEDS: MAGNESIUM CHLORIDE 64 MG TABLET PO SCH (14:26)
[2019-06-06] MEDS: ACETAMINOPHEN 325 MG TABLET PO PRN (15:15)
[2019-06-06 15:20] VITALS: BP 105/63
== END 2019-06-06 18:09 | disposition home health service (06) | DRG 291 ==
LOC: N.5E 12:25 → SUATTDRO 12:25 → N.5E 06-04 08:35
PROVIDERS: ADMIT Internal Medicine; ATTEND Internal Medicine

== ENCOUNTER 2020-08-11 10:31 | Inpatient (IN) ==
[2020-08-11] MEDS ORDERED: ONDANSETRON 4 MG/2 ML VIAL ONE (10:47)
[2020-08-11] MEDS ORDERED: ONDANSETRON 4 MG/2 ML VIAL IV STA (10:52)
[2020-08-11] MEDS ORDERED: cefTRIAXone 1,000 MG in SODIUM CHLORIDE 0.9% 100 ML IV STA (10:52)
[2020-08-11] MEDS ORDERED: VANCOMYCIN INJ 1,000 MG in SODIUM CHLORIDE 0.9% 250 ML IV STA (10:52)
[2020-08-11 11:15] LABS: Eosinophils % 1.6 % (0.00-10.9); Hematocrit 33.4 VOL% (42.0-52.0); Hemoglobin 10.7 GM/DL (14.0-18.0); Lymphocytes # 0.1 10*3/uL (1.4-4.0); Lymphocytes % 8.7 % (21.2-54.2); Mean Platelet Volume 10.7 FL (9.6-12.0); Monocytes % 0.8 % (1.7-12.7); Neutrophils % 88.9 % (38.7-73.9); Platelet Count 75 T/CUMM (130-400); Red Blood Count 3.48 MC/CUMM (3.8-5.5); Red Cell Distribution Width 14.6 % (9.3-17.3)
[2020-08-11 11:19] LABS: White Blood Count 1.3 T/CUMM (4-12)
[2020-08-11 11:31] LABS: Alanine Aminotransferase 22 U/L (16-61); Albumin 3.5 G/DL (3.4-5.0); Alkaline Phosphatase 77 U/L (45-117); Aspartate Amino Transferase 10 U/L (0-37); Blood Urea Nitrogen 15 MG/DL (7-18); Calcium 8.6 MG/DL (8.5-10.1); Carbon Dioxide 32 MMOL/L (21-32); Estimated Glom Filtration Rate 20 ML/MIN; Glucose 56 MG/DL (74-106); Osmolality,Calculated 275.5 MOS/KG (273-304); Potassium 3.4 MMOL/L (3.5-5.1); Sodium 139 MMOL/L (136-145); Total Protein 6.9 G/DL (6.4-8.2)
[2020-08-11 11:46] LABS: Anisocytosis 2+; Band Neutrophils 9 % (0-10); Eosinophils 2 % (0-10); Lymphocytes 16 % (20-55); Ovalocytes Few; Platelet Estimate Decreased; Segmented Neutrophils 72 % (50-85); Tear Drop Cells Few; Total Cells Counted 100
[2020-08-11] MEDS ORDERED: VANCOMYCIN 1,000 MG VIAL ONE (11:58)
[2020-08-11 12:21] LABS: Bacteria,Urine Occasional /HPF (Few); Bilirubin,Urine Negative (Negative); Blood, Urine Negative (Negative); Glucose,Urine (UA) Negative (Negative); Hyaline Casts,Urine 3 /LPF (0-3); Ketones,Urine Negative (Negative); Nitrite,Urine Negative (Negative); Protein,Urine >=500 MG/DL; RBC,Urine 5 /HPF (0-4); Squamous Epithelial Cell,Urine Occasional /HPF (0-10); Urine Appearance Slightly Hazy (Clear); Urine Color Yellow (Yellow); Urine Specific Gravity 1.012 (1.001-1.035); Urine Urobilinogen < 2.0 EU/DL (0.2-1.0)
[2020-08-11] MEDS ORDERED: GLUCAGON 1 MG VIAL IM PRN (13:31)
[2020-08-11] MEDS ORDERED: DOCUSATE SODIUM 100 MG CAPSULE PO PRN (13:31)
[2020-08-11] MEDS ORDERED: DEXTROSE 50% 25 GM/50 ML VIAL IV PRN (13:31)
[2020-08-11] MEDS ORDERED: ONDANSETRON 4 MG/2 ML VIAL IV PRN (13:31)
[2020-08-11 13:50] LABS: INR 3.2
[2020-08-11 13:54] LABS: PT Patient Result 32.6 SECS (10.5-12.0)
[2020-08-11] MEDS ORDERED: HEPARIN 5,000 UNIT/1 ML VIAL SUBCUT SCH (14:00)
[2020-08-11] MEDS: PIPERACILLIN/TAZOBACTAM 3,375 MG in SODIUM CHLORIDE 0.9% 100 ML IV SCH (15:36)
[2020-08-11] MEDS ORDERED: VANCOMYCIN INJ 500 MG in SODIUM CHLORIDE 0.9% 100 ML IV PRN (16:10)
[2020-08-11] MEDS ORDERED: VANCOMYCIN INJ 750 MG in SODIUM CHLORIDE 0.9% 250 ML IV ONE (17:00)
[2020-08-12] MEDS: PIPERACILLIN/TAZOBACTAM 3,375 MG in SODIUM CHLORIDE 0.9% 100 ML IV SCH ×2 (02:35→13:12)
[2020-08-12 06:50] LABS: Basophils % 0.2 % (0.0-0.8); Eosinophils % 0.3 % (0.00-10.9); Hematocrit 31.6 VOL% (42.0-52.0); Hemoglobin 10.3 GM/DL (14.0-18.0); Immature Granulocytes % 2.1 %; Immature Granulocytes Absolute 0.31 #; Lymphocytes # 1.3 10*3/uL (1.4-4.0); Lymphocytes % 8.8 % (21.2-54.2); Mean Corpuscular HGB Conc 32.6 GM/DL (32-36); Mean Corpuscular Volume 96.6 FL (87-102); Monocytes % 7.1 % (1.7-12.7); Neutrophils % 81.5 % (38.7-73.9); Platelet Count 65 T/CUMM (130-400); Red Blood Count 3.27 MC/CUMM (3.8-5.5); Red Cell Distribution Width 14.6 % (9.3-17.3); White Blood Count 14.6 T/CUMM (4-12)
[2020-08-12 06:59] LABS: INR 2.8; PT Patient Result 29.3 SECS (10.5-12.0)
[2020-08-12 07:13] LABS: Calcium 8.6 MG/DL (8.5-10.1); Osmolality,Calculated 284.3 MOS/KG (273-304); Potassium 4.2 MMOL/L (3.5-5.1)
[2020-08-12 07:23] LABS: Folate 17.03 NG/ML (5.38-24.0)
[2020-08-12 07:46] LABS: Band Neutrophils 28 % (0-10); Lymphocytes 13 % (20-55); Metamyelocytes 3 %; Myelocytes 1 %; Platelet Estimate Decreased; Segmented Neutrophils 48 % (50-85); Total Cells Counted 100
[2020-08-12 07:47] LABS: Anisocytosis 2+; Burr Cells Few; Macrocytosis 1+; Ovalocytes Few
[2020-08-12] MEDS ORDERED: VANCOMYCIN INJ 750 MG in SODIUM CHLORIDE 0.9% 250 ML IV ONE (11:00)
[2020-08-12] MEDS ORDERED: GLUCAGON 1 MG VIAL IM PRN (15:18)
[2020-08-12] MEDS ORDERED: DEXTROSE 50% 25 GM/50 ML VIAL IV PRN (15:18)
[2020-08-12] MEDS: MEROPENEM 500 MG in SODIUM CHLORIDE 0.9% 100 ML IV SCH (16:55)
[2020-08-12] MEDS: LEVOFLOXACIN INJ 250 MG/50 ML PREMIX IV SCH (17:35)
[2020-08-12] MEDS: carvediloL 12.5 MG TABLET PO SCH (20:42)
[2020-08-13 06:07] LABS: Basophils % 0.2 % (0.0-0.8); Eosinophils # 0.2 10*3/uL (0.0-0.87); Eosinophils % 1.8 % (0.00-10.9); Hematocrit 30.9 VOL% (42.0-52.0); Hemoglobin 9.8 GM/DL (14.0-18.0); Immature Granulocytes % 1.2 %; Immature Granulocytes Absolute 0.12 #; Lymphocytes # 1.1 10*3/uL (1.4-4.0); Lymphocytes % 11.6 % (21.2-54.2); Mean Corpuscular HGB Conc 31.7 GM/DL (32-36); Mean Corpuscular Volume 96.9 FL (87-102); Mean Platelet Volume 12.8 FL (9.6-12.0); Monocytes % 6.9 % (1.7-12.7); Neutrophils % 78.3 % (38.7-73.9); Red Blood Count 3.19 MC/CUMM (3.8-5.5); Red Cell Distribution Width 14.4 % (9.3-17.3); White Blood Count 9.8 T/CUMM (4-12)
[2020-08-13 06:10] LABS: Platelet Count 65 T/CUMM (130-400)
[2020-08-13 06:15] LABS: INR 1.5; PT Patient Result 16.1 SECS (10.5-12.0)
[2020-08-13 06:20] LABS: Albumin 2.8 G/DL (3.4-5.0); Bilirubin,Total 0.4 MG/DL (0.2-1.0); Calcium 9.2 MG/DL (8.5-10.1); Osmolality,Calculated 284.8 MOS/KG (273-304); Potassium 3.9 MMOL/L (3.5-5.1); Total Protein 6.5 G/DL (6.4-8.2)
[2020-08-13 07:10] LABS: Band Neutrophils 5 % (0-10); Total Cells Counted 100
[2020-08-13 07:11] LABS: Eosinophils 2 % (0-10); Lymphocytes 11 % (20-55); Platelet Estimate Decreased; Segmented Neutrophils 76 % (50-85)
[2020-08-13] MEDS: carvediloL 12.5 MG TABLET PO SCH ×2 (08:43→20:27)
[2020-08-13 08:51] LABS: Total Protein 6.4 G/DL (6.4-8.2)
[2020-08-13 09:18] LABS: Immunoglobulin A (Chem) 104 MG/DL (70-400); Immunoglobulin G (Chem) 1220 MG/DL (700-1600); Immunoglobulin M (Chem) 27 MG/DL (40-230); Total Protein (Chem) 6.4 G/DL (6.4-8.3)
[2020-08-13 10:05] LABS: Albumin (SPE) 4.2 G/DL (3.2-5.3); Albumin (SPE) Rel % 65.4 %; Alpha 1 (SPE) 0.2 G/DL (0.1-0.4); Alpha 1 (SPE) Rel % 3.1 %; Alpha 2 (SPE) 0.6 G/DL (0.4-1.0); Alpha 2 (SPE) Rel % 8.9 %; Beta (SPE) 0.5 G/DL (0.5-1.1); Beta (SPE) Rel % 7.4 %; Gamma (SPE) Rel % 15.2 %
[2020-08-13] MEDS: MEROPENEM 500 MG in SODIUM CHLORIDE 0.9% 100 ML IV SCH (16:23)
[2020-08-13] MEDS: ACETAMINOPHEN 325 MG TABLET PO PRN (20:27)
[2020-08-13] MEDS: ASCORBIC ACID 500 MG TABLET PO SCH (20:27)
[2020-08-14 04:38] LABS: Basophils % 0.3 % (0.0-0.8); Eosinophils # 0.1 10*3/uL (0.0-0.87); Eosinophils % 1.7 % (0.00-10.9); Hematocrit 30.6 VOL% (42.0-52.0); Immature Granulocytes % 0.9 %; Immature Granulocytes Absolute 0.07 #; Lymphocytes # 1.3 10*3/uL (1.4-4.0); Mean Corpuscular HGB Conc 32.7 GM/DL (32-36); Mean Corpuscular Volume 93.3 FL (87-102); Mean Platelet Volume 13.2 FL (9.6-12.0); Neutrophils % 72.1 % (38.7-73.9); Platelet Count 70 T/CUMM (130-400); Red Blood Count 3.28 MC/CUMM (3.8-5.5); White Blood Count 7.6 T/CUMM (4-12)
[2020-08-14 04:45] LABS: INR 1.2; PT Patient Result 13.7 SECS (10.5-12.0)
[2020-08-14 04:55] LABS: Bilirubin,Total 1.4 MG/DL (0.2-1.0); Calcium 9.4 MG/DL (8.5-10.1); Osmolality,Calculated 291.5 MOS/KG (273-304); Total Protein 6.6 G/DL (6.4-8.2)
[2020-08-14 05:01] LABS: Risk Ratio 2.26
[2020-08-14 05:03] LABS: Platelet Estimate Decreased
[2020-08-14 09:16] LABS: Immuno Free Light Chain Kappa 12.05 MG/DL (0.33-1.94); Immuno Free Light Chain Lambda 7.66 MG/DL (0.57-2.63); Immuno Free Light Chain Ratio 1.57 MG/DL (0.26-1.65)
[2020-08-14] MEDS ORDERED: HEPARIN 10,000 UNIT/10 ML VIAL IV ONE (16:30)
[2020-08-14] MEDS: ASCORBIC ACID 500 MG TABLET PO SCH ×2 (17:08→20:43)
[2020-08-14] MEDS: carvediloL 12.5 MG TABLET PO SCH ×2 (17:08→20:43)
[2020-08-14] MEDS: MEROPENEM 500 MG in SODIUM CHLORIDE 0.9% 100 ML IV SCH (17:08)
[2020-08-14] MEDS: ASPIRIN CHEW 81 MG TABLET PO SCH (17:08)
[2020-08-14] MEDS: LEVOFLOXACIN INJ 250 MG/50 ML PREMIX IV SCH (17:31)
[2020-08-15 05:35] LABS: Basophils % 0.4 % (0.0-0.8); Eosinophils # 0.1 10*3/uL (0.0-0.87); Eosinophils % 0.6 % (0.00-10.9); Hematocrit 29.5 VOL% (42.0-52.0); Hemoglobin 9.6 GM/DL (14.0-18.0); Immature Granulocytes % 0.9 %; Lymphocytes % 9.6 % (21.2-54.2); Mean Corpuscular HGB Conc 32.5 GM/DL (32-36); Mean Corpuscular Volume 93.7 FL (87-102); Mean Platelet Volume 11.6 FL (9.6-12.0); Monocytes % 5.9 % (1.7-12.7); Neutrophils % 82.6 % (38.7-73.9); Platelet Count 77 T/CUMM (130-400); Red Blood Count 3.15 MC/CUMM (3.8-5.5); Red Cell Distribution Width 14.2 % (9.3-17.3); White Blood Count 10.7 T/CUMM (4-12)
[2020-08-15 05:44] LABS: INR 1.3; PT Patient Result 14.6 SECS (10.5-12.0)
[2020-08-15 05:54] LABS: Calcium 9.1 MG/DL (8.5-10.1); Osmolality,Calculated 281.8 MOS/KG (273-304); Potassium 3.9 MMOL/L (3.5-5.1)
[2020-08-15 06:01] LABS: Band Neutrophils 3 % (0-10); Eosinophils 1 % (0-10); Hypochromasia 1+; Lymphocytes 6 % (20-55); Microcytosis 1+; Ovalocytes Slight; Platelet Estimate Decreased; Segmented Neutrophils 87 % (50-85); Total Cells Counted 100
[2020-08-15] MEDS: ASCORBIC ACID 500 MG TABLET PO SCH ×2 (08:28→20:37)
[2020-08-15] MEDS: ASPIRIN CHEW 81 MG TABLET PO SCH (08:28)
[2020-08-15] MEDS: carvediloL 12.5 MG TABLET PO SCH ×2 (08:28→20:37)
[2020-08-15] MEDS ORDERED: LIDOCAINE/PRILOCAINE CREAM 5 GM TUBE TOP ONE (09:00)
[2020-08-15] MEDS: ACETAMINOPHEN 325 MG TABLET PO PRN (09:42)
[2020-08-15] MEDS: MEROPENEM 500 MG in SODIUM CHLORIDE 0.9% 100 ML IV SCH (15:34)
[2020-08-16 06:18] LABS: Basophils % 0.5 % (0.0-0.8); Eosinophils # 0.2 10*3/uL (0.0-0.87); Eosinophils % 2.3 % (0.00-10.9); Hematocrit 28.8 VOL% (42.0-52.0); Hemoglobin 9.6 GM/DL (14.0-18.0); Immature Granulocytes % 1.4 %; Immature Granulocytes Absolute 0.09 #; Lymphocytes # 1.4 10*3/uL (1.4-4.0); Lymphocytes % 21.3 % (21.2-54.2); Mean Corpuscular HGB Conc 33.3 GM/DL (32-36); Mean Corpuscular Volume 93.2 FL (87-102); Monocytes % 10.4 % (1.7-12.7); Neutrophils % 64.1 % (38.7-73.9); Platelet Count 78 T/CUMM (130-400); Red Blood Count 3.09 MC/CUMM (3.8-5.5); White Blood Count 6.6 T/CUMM (4-12)
[2020-08-16 06:22] LABS: INR 1.2; PT Patient Result 13.3 SECS (10.5-12.0)
[2020-08-16 06:40] LABS: Eosinophils 3 % (0-10); Hypochromasia 1+; Lymphocytes 30 % (20-55); Microcytosis 1+; Platelet Estimate Decreased; Segmented Neutrophils 61 % (50-85); Total Cells Counted 100
[2020-08-16 06:41] LABS: Ovalocytes Slight
[2020-08-16 06:48] LABS: Calcium 8.9 MG/DL (8.5-10.1); Osmolality,Calculated 289.8 MOS/KG (273-304); Potassium 3.9 MMOL/L (3.5-5.1)
[2020-08-16] MEDS: LIDOCAINE/PRILOCAINE CREAM 5 GM TUBE TOP SCH (08:05)
[2020-08-16] MEDS: ACETAMINOPHEN 325 MG TABLET PO PRN (08:05)
[2020-08-16] MEDS: ASPIRIN CHEW 81 MG TABLET PO SCH (13:39)
[2020-08-16] MEDS: ASCORBIC ACID 500 MG TABLET PO SCH ×2 (13:39→20:56)
[2020-08-16] MEDS: carvediloL 12.5 MG TABLET PO SCH ×2 (13:39→20:56)
[2020-08-16] MEDS: MEROPENEM 500 MG in SODIUM CHLORIDE 0.9% 100 ML IV SCH (15:45)
[2020-08-16] MEDS: LEVOFLOXACIN INJ 250 MG/50 ML PREMIX IV SCH (16:35)
[2020-08-17 06:40] LABS: Basophils % 0.5 % (0.0-0.8); Eosinophils # 0.1 10*3/uL (0.0-0.87); Eosinophils % 3.1 % (0.00-10.9); Hematocrit 30.3 VOL% (42.0-52.0); Hemoglobin 9.9 GM/DL (14.0-18.0); Immature Granulocytes % 0.8 %; Immature Granulocytes Absolute 0.03 #; Lymphocytes # 1.3 10*3/uL (1.4-4.0); Lymphocytes % 34.9 % (21.2-54.2); Mean Corpuscular HGB Conc 32.7 GM/DL (32-36); Mean Corpuscular Volume 93.5 FL (87-102); Mean Platelet Volume 11.2 FL (9.6-12.0); Monocytes % 13.8 % (1.7-12.7); NRBC # 0.03 10*3/uL; Neutrophils % 46.9 % (38.7-73.9); Platelet Count 94 T/CUMM (130-400); Red Blood Count 3.24 MC/CUMM (3.8-5.5); Red Cell Distribution Width 14.1 % (9.3-17.3); White Blood Count 3.8 T/CUMM (4-12)
[2020-08-17 06:49] LABS: INR 1.2; PT Patient Result 12.9 SECS (10.5-12.0)
[2020-08-17 07:01] LABS: Eosinophils 5 % (0-10); Lymphocytes 39 % (20-55); Segmented Neutrophils 47 % (50-85); Total Cells Counted 100
[2020-08-17 07:02] LABS: Hypochromasia 1+; Microcytosis 1+; Platelet Estimate Decreased
[2020-08-17 07:08] LABS: Calcium 9.1 MG/DL (8.5-10.1); Potassium 3.8 MMOL/L (3.5-5.1)
[2020-08-17] MEDS: ASCORBIC ACID 500 MG TABLET PO SCH ×2 (09:01→20:46)
[2020-08-17] MEDS: carvediloL 12.5 MG TABLET PO SCH ×2 (09:01→20:46)
[2020-08-17] MEDS: ASPIRIN CHEW 81 MG TABLET PO SCH (09:01)
[2020-08-17] MEDS ORDERED: fentaNYL 100 MCG/2 ML VIAL ONE (10:35)
[2020-08-17] MEDS ORDERED: MIDAZOLAM 2 MG/2 ML VIAL ONE (10:35)
[2020-08-17] MEDS ORDERED: LIDOCAINE 1%/EPI INJ 20 ML VIAL ONE (10:41)
[2020-08-17] MEDS ORDERED: BUPIVACAINE MPF 0.25% 30 ML VIAL ONE (10:41)
[2020-08-17] MEDS ORDERED: SODIUM CHLORIDE 0.9% 250 ML IV SCH (11:00)
[2020-08-17] MEDS: MEROPENEM 500 MG in SODIUM CHLORIDE 0.9% 100 ML IV SCH (16:32)
[2020-08-17] MEDS: WARFARIN 5 MG TABLET PO SCH (17:54)
[2020-08-18 05:21] LABS: INR 1.2
[2020-08-18] MEDS: LIDOCAINE/PRILOCAINE CREAM 5 GM TUBE TOP SCH (07:44)
[2020-08-18] MEDS: ASCORBIC ACID 500 MG TABLET PO SCH ×2 (08:45→20:29)
[2020-08-18] MEDS: ASPIRIN CHEW 81 MG TABLET PO SCH (08:45)
[2020-08-18] MEDS: carvediloL 12.5 MG TABLET PO SCH ×2 (08:45→20:29)
[2020-08-18] MEDS ORDERED: LEVOFLOXACIN 750 MG TABLET PO SCH (12:00)
[2020-08-18] MEDS: WARFARIN 5 MG TABLET PO SCH (17:32)
[2020-08-18 19:57] VITALS: BP 130/78
[2020-08-21] MEDS ORDERED: WARFARIN 2.5 MG TABLET PO SCH (18:00)
== END 2020-08-18 22:30 | disposition home or self-care (01) | DRG 252 ==
LOC: N.ED 10:31 → N.EDINP 13:31 → SUATTDRO 13:31 → N.EDINP 15:03 → N.5E 15:24 → N.TELEN 08-12 18:06 → N.5E 08-14 18:47
PROVIDERS: ADMIT Hospitalist; ATTEND Emergency Medicine

== ENCOUNTER 2020-12-20 19:22 | Observation (INO) ==
[2020-12-20] MEDS ORDERED: FUROSEMIDE 100 MG/10 ML VIAL IV STA (19:49)
[2020-12-20] MEDS ORDERED: ONDANSETRON 4 MG/2 ML VIAL IV STA (19:49)
[2020-12-20] MEDS ORDERED: methylPREDNISolone SOD SUC 125 MG/2 ML VIAL IV STA (19:49)
[2020-12-20] MEDS ORDERED: ALBUTEROL/IPRATROPIUM 3 ML NEB RESP TX STA (19:49)
[2020-12-20 20:28] LABS: Basophils % 0.3 % (0.0-0.8); Eosinophils # 0.1 10*3/uL (0.0-0.87); Eosinophils % 1.9 % (0.00-10.9); Hematocrit 32.5 VOL% (42.0-52.0); Hemoglobin 10.7 GM/DL (14.0-18.0); Lymphocytes # 0.9 10*3/uL (1.4-4.0); Lymphocytes % 27.8 % (21.2-54.2); Mean Corpuscular HGB Conc 32.9 GM/DL (32-36); Mean Corpuscular Volume 92.9 FL (87-102); Mean Platelet Volume 12.2 FL (9.6-12.0); Monocytes % 12.8 % (1.7-12.7); Neutrophils % 57.2 % (38.7-73.9); Platelet Count 87 T/CUMM (130-400); Red Cell Distribution Width 18.3 % (9.3-17.3); White Blood Count 3.1 T/CUMM (4-12)
[2020-12-20 20:39] LABS: INR 2.3
[2020-12-20 20:44] LABS: PT Patient Result 24.1 SECS (10.5-12.0)
[2020-12-20 20:48] LABS: Albumin 3.5 G/DL (3.4-5.0); Bilirubin,Total 0.8 MG/DL (0.20-1.00); Osmolality,Calculated 281.5 MOS/KG (273-304); Potassium 3.5 MMOL/L (3.5-5.1); Total Protein 7.5 G/DL (6.4-8.2)
[2020-12-20] MEDS ORDERED: DEXTROSE 50% 25 GM/50 ML VIAL IV PRN (21:21)
[2020-12-20] MEDS ORDERED: diphenhydrAMINE CAP 25 MG CAPSULE PO PRN (21:21)
[2020-12-20] MEDS ORDERED: guaiFENesin/DM ER 600-30 MG TABLET PO PRN (21:21)
[2020-12-20] MEDS ORDERED: ZALEPLON 5 MG CAPSULE PO PRN (21:21)
[2020-12-20] MEDS ORDERED: ACETAMINOPHEN 325 MG TABLET PO PRN (21:21)
[2020-12-20] MEDS ORDERED: NICOTINE 21 MG/24 HR PATCH TRANSDERM PRN (21:21)
[2020-12-20] MEDS ORDERED: hydrALAZINE 20 MG/1 ML VIAL IV PRN (21:21)
[2020-12-20] MEDS ORDERED: ONDANSETRON 4 MG/2 ML VIAL IV PRN (21:21)
[2020-12-20] MEDS ORDERED: GLUCAGON 1 MG VIAL IM PRN (21:21)
[2020-12-21] MEDS: ALBUTEROL/IPRATROPIUM 3 ML NEB RESP TX SCH ×4 (00:40→19:43)
[2020-12-21 01:37] LABS: Calcium 9.4 MG/DL (8.5-10.1); Potassium 3.9 MMOL/L (3.5-5.1)
[2020-12-21 01:49] LABS: Basophils % 0.4 % (0.0-0.8); Eosinophils % 0.4 % (0.00-10.9); Hematocrit 31.4 VOL% (42.0-52.0); Hemoglobin 10.4 GM/DL (14.0-18.0); Lymphocytes # 0.5 10*3/uL (1.4-4.0); Lymphocytes % 17.8 % (21.2-54.2); Mean Corpuscular HGB Conc 33.1 GM/DL (32-36); Mean Platelet Volume 12.3 FL (9.6-12.0); Monocytes % 3.7 % (1.7-12.7); Neutrophils % 77.7 % (38.7-73.9); Red Blood Count 3.34 MC/CUMM (3.8-5.5); White Blood Count 2.7 T/CUMM (4-12)
[2020-12-21 01:50] LABS: Platelet Count 64 T/CUMM (130-400)
[2020-12-21 02:49] LABS: Hypochromasia 3+
[2020-12-21 02:50] LABS: Ovalocytes 2+; Platelet Estimate Normal; Target Cells 1+
[2020-12-21] MEDS: DOCUSATE SODIUM 100 MG CAPSULE PO SCH ×2 (09:41→21:21)
[2020-12-21] MEDS: carvediloL 25 MG TABLET PO SCH ×2 (09:42→21:20)
[2020-12-21] MEDS: POTASSIUM CHLORIDE 10 MEQ TABLET PO SCH (09:42)
[2020-12-21] MEDS: ASCORBIC ACID 500 MG TABLET PO SCH ×2 (09:42→21:20)
[2020-12-21] MEDS: ASPIRIN CHEW 81 MG TABLET PO SCH (09:42)
[2020-12-21] MEDS: SEVELAMER CARBONATE 800 MG TABLET PO SCH ×3 (09:42→17:12)
[2020-12-21] MEDS: PANTOPRAZOLE 40 MG TABLET PO SCH (09:42)
[2020-12-21] MEDS ORDERED: WARFARIN 5 MG TABLET PO SCH (18:00)
[2020-12-21] MEDS: SIMVASTATIN 20 MG TABLET PO SCH (21:20)
[2020-12-22] MEDS: ALBUTEROL/IPRATROPIUM 3 ML NEB RESP TX SCH ×4 (01:35→19:40)
[2020-12-22] MEDS: POTASSIUM CHLORIDE 10 MEQ TABLET PO SCH (12:23)
[2020-12-22] MEDS: DOCUSATE SODIUM 100 MG CAPSULE PO SCH ×2 (12:23→21:54)
[2020-12-22] MEDS: ASPIRIN CHEW 81 MG TABLET PO SCH (12:23)
[2020-12-22] MEDS: PANTOPRAZOLE 40 MG TABLET PO SCH (12:23)
[2020-12-22] MEDS: ASCORBIC ACID 500 MG TABLET PO SCH ×2 (12:23→21:54)
[2020-12-22] MEDS: SEVELAMER CARBONATE 800 MG TABLET PO SCH ×3 (12:23→16:36)
[2020-12-22] MEDS: carvediloL 25 MG TABLET PO SCH ×2 (12:24→21:53)
[2020-12-22] MEDS: SIMVASTATIN 20 MG TABLET PO SCH (21:53)
[2020-12-23] MEDS: ALBUTEROL/IPRATROPIUM 3 ML NEB RESP TX SCH ×4 (00:46→19:50)
[2020-12-23 05:46] LABS: INR 1.7; PT Patient Result 18.5 SECS (10.5-12.0)
[2020-12-23 08:47] LABS: Basophils % 0.2 % (0.0-0.8); Eosinophils # 0.1 10*3/uL (0.0-0.87); Eosinophils % 1.7 % (0.00-10.9); Hemoglobin 11.2 GM/DL (14.0-18.0); Lymphocytes # 1.1 10*3/uL (1.4-4.0); Lymphocytes % 26.7 % (21.2-54.2); Mean Corpuscular Volume 95.9 FL (87-102); Mean Platelet Volume 11.3 FL (9.6-12.0); Monocytes % 11.2 % (1.7-12.7); Platelet Count 103 T/CUMM (130-400); Red Blood Count 3.65 MC/CUMM (3.8-5.5); Red Cell Distribution Width 18.6 % (9.3-17.3); White Blood Count 4.1 T/CUMM (4-12)
[2020-12-23 09:04] LABS: Calcium 9.7 MG/DL (8.5-10.1); Osmolality,Calculated 282.8 MOS/KG (273-304); Potassium 4.2 MMOL/L (3.5-5.1)
[2020-12-23] MEDS: SEVELAMER CARBONATE 800 MG TABLET PO SCH ×3 (09:37→17:24)
[2020-12-23] MEDS: POTASSIUM CHLORIDE 10 MEQ TABLET PO SCH (09:37)
[2020-12-23] MEDS: PANTOPRAZOLE 40 MG TABLET PO SCH (09:38)
[2020-12-23] MEDS: DOCUSATE SODIUM 100 MG CAPSULE PO SCH ×2 (09:38→21:44)
[2020-12-23] MEDS: ASCORBIC ACID 500 MG TABLET PO SCH ×2 (09:38→21:44)
[2020-12-23] MEDS: carvediloL 25 MG TABLET PO SCH ×2 (09:38→21:44)
[2020-12-23] MEDS: ASPIRIN CHEW 81 MG TABLET PO SCH (09:39)
[2020-12-23] MEDS: SIMVASTATIN 20 MG TABLET PO SCH (21:44)
[2020-12-24] MEDS: ALBUTEROL/IPRATROPIUM 3 ML NEB RESP TX SCH ×3 (00:45→12:05)
[2020-12-24] MEDS: SEVELAMER CARBONATE 800 MG TABLET PO SCH ×2 (08:05→11:31)
[2020-12-24] MEDS: ASPIRIN CHEW 81 MG TABLET PO SCH (08:06)
[2020-12-24] MEDS: DOCUSATE SODIUM 100 MG CAPSULE PO SCH (08:08)
[2020-12-24] MEDS: carvediloL 25 MG TABLET PO SCH (08:09)
[2020-12-24] MEDS: POTASSIUM CHLORIDE 10 MEQ TABLET PO SCH (08:09)
[2020-12-24] MEDS: PANTOPRAZOLE 40 MG TABLET PO SCH (08:10)
[2020-12-24] MEDS: ASCORBIC ACID 500 MG TABLET PO SCH (08:10)
[2020-12-24 11:16] VITALS: BP 130/79
[2020-12-25] MEDS ORDERED: WARFARIN 2.5 MG TABLET PO SCH (18:00)
== END 2020-12-24 15:04 | disposition home or self-care (01) ==
LOC: N.ED 19:22 → N.EDINP 19:22 → SUATTDRO 21:21 → N.TELES 23:19
PROVIDERS: ADMIT Internal Medicine; ATTEND Internal Medicine

== ENCOUNTER 2022-02-12 06:29 | Observation (INO) ==
[2022-02-12 07:51] LABS: Basophils % 0.3 % (0.0-0.8); Eosinophils # 0.1 10*3/uL (0.0-0.87); Eosinophils % 2.2 % (0.00-10.9); Hematocrit 32.2 VOL% (42.0-52.0); Hemoglobin 10.2 GM/DL (14.0-18.0); Immature Granulocytes % 0.3 %; Immature Granulocytes Absolute 0.02 #; Lymphocytes % 16.3 % (21.2-54.2); Mean Corpuscular HGB Conc 31.7 GM/DL (32-36); Mean Corpuscular Volume 95.5 FL (87-102); Mean Platelet Volume 10.8 FL (9.6-12.0); Monocytes # 0.6 10*3/uL (0.11-0.8); Neutrophils % 71.9 % (38.7-73.9); Platelet Count 110 T/CUMM (130-400); Red Blood Count 3.37 MC/CUMM (3.8-5.5); Red Cell Distribution Width 15.9 % (9.3-17.3); White Blood Count 6.2 T/CUMM (4-12)
[2022-02-12 08:10] LABS: Albumin 3.4 G/DL (3.4-5.0); Bilirubin,Total 0.8 MG/DL (0.20-1.00); Calcium 7.9 MG/DL (8.5-10.1); Osmolality,Calculated 288.7 MOS/KG (273-304); Potassium 4.5 MMOL/L (3.5-5.1); Total Protein 7.3 G/DL (6.4-8.2)
[2022-02-12] MEDS ORDERED: CLINDAMYCIN INJ 900 MG/50 ML PREMIX IV ONE (09:39)
[2022-02-12] MEDS ORDERED: carvediloL 25 MG TABLET PO ONE (10:41)
[2022-02-12] MEDS: SODIUM CHLORIDE 0.9% 250 ML IV SCH ×2 (11:09→23:06)
[2022-02-12] MEDS ORDERED: BUPIVACAINE MPF 0.25% 10 ML VIAL ONE (12:16)
[2022-02-12] MEDS ORDERED: HEPARIN 5,000 UNIT/1 ML VIAL ONE (12:17)
[2022-02-12] MEDS ORDERED: LIDOCAINE 1% 5 ML VIAL ONE (12:17)
[2022-02-12] MEDS ORDERED: propofoL 200 MG/20 ML VIAL IV ONE (12:34)
[2022-02-12] MEDS ORDERED: MIDAZOLAM 2 MG/2 ML VIAL ONE (12:34)
[2022-02-12] MEDS ORDERED: fentaNYL 100 MCG/2 ML VIAL ONE (12:34)
[2022-02-12] MEDS ORDERED: LIDOCAINE 2% 5 ML VIAL ONE (12:34)
[2022-02-12] MEDS ORDERED: KETAMINE 500 MG/10 ML VIAL ONE (12:54)
[2022-02-12] MEDS ORDERED: hydrALAZINE 20 MG/1 ML VIAL IV PRN (21:12)
[2022-02-12] MEDS ORDERED: ONDANSETRON 4 MG/2 ML VIAL IV PRN (21:12)
[2022-02-12] MEDS ORDERED: MORPHINE 2 MG/1 ML SYRINGE IV PRN (21:12)
[2022-02-12] MEDS: GABAPENTIN 300 MG CAPSULE PO SCH (21:53)
[2022-02-12] MEDS: SIMVASTATIN 20 MG TABLET PO SCH (21:53)
[2022-02-12] MEDS: carvediloL 25 MG TABLET PO SCH (21:53)
[2022-02-12] MEDS: ACETAMINOPHEN 325 MG TABLET PO PRN (21:55)
[2022-02-12] MEDS: ASCORBIC ACID 500 MG TABLET PO SCH (21:55)
[2022-02-12 22:52] LABS: PT Patient Result 55.2 SECS (10.1-12.1)
[2022-02-12 23:06] LABS: INR 5.7
[2022-02-13 05:03] LABS: Basophils % 0.6 % (0.0-0.8); Eosinophils # 0.3 10*3/uL (0.0-0.87); Eosinophils % 5.5 % (0.00-10.9); Hematocrit 30.9 VOL% (42.0-52.0); Hemoglobin 9.8 GM/DL (14.0-18.0); Immature Granulocytes % 0.2 %; Immature Granulocytes Absolute 0.01 #; Lymphocytes # 1.1 10*3/uL (1.4-4.0); Lymphocytes % 21.5 % (21.2-54.2); Mean Corpuscular HGB Conc 31.7 GM/DL (32-36); Mean Corpuscular Volume 95.1 FL (87-102); Mean Platelet Volume 11.8 FL (9.6-12.0); Monocytes # 0.5 10*3/uL (0.11-0.8); Monocytes % 10.7 % (1.7-12.7); Neutrophils % 61.5 % (38.7-73.9); Platelet Count 95 T/CUMM (130-400); Red Blood Count 3.25 MC/CUMM (3.8-5.5); Red Cell Distribution Width 15.7 % (9.3-17.3); White Blood Count 4.9 T/CUMM (4-12)
[2022-02-13 05:15] LABS: Calcium 7.8 MG/DL (8.5-10.1); Osmolality,Calculated 284.8 MOS/KG (273-304); Potassium 4.6 MMOL/L (3.5-5.1)
[2022-02-13 05:17] LABS: PT Patient Result 66.7 SECS (10.1-12.1); Partial Thromboplastin Time 51.2 SECS (23.7-32.9)
[2022-02-13 05:21] LABS: INR 6.9
[2022-02-13 05:33] LABS: Hypochromia Slight; Microcytosis Slight; Ovalocytes Few; Platelet Estimate Decreased
[2022-02-13] MEDS: ACETAMINOPHEN 325 MG TABLET PO PRN ×3 (05:38→23:35)
[2022-02-13] MEDS ORDERED: PHYTONADIONE 10 MG/1 ML AMP SUBCUT ONE (05:45)
[2022-02-13] MEDS: TAMSULOSIN 0.4 MG CAPSULE PO SCH (09:36)
[2022-02-13] MEDS: SEVELAMER CARBONATE 800 MG TABLET PO SCH ×3 (09:36→17:23)
[2022-02-13] MEDS: MULTIVITAMIN (BEROCCA) TABLET PO SCH (09:36)
[2022-02-13] MEDS: ASCORBIC ACID 500 MG TABLET PO SCH ×2 (09:36→20:17)
[2022-02-13] MEDS: GABAPENTIN 300 MG CAPSULE PO SCH ×2 (09:36→20:18)
[2022-02-13] MEDS: allopurinoL 100 MG TABLET PO SCH (09:36)
[2022-02-13] MEDS: carvediloL 25 MG TABLET PO SCH ×2 (09:37→20:17)
[2022-02-13] MEDS: SIMVASTATIN 20 MG TABLET PO SCH (20:17)
[2022-02-14 05:57] LABS: Hematocrit 29.9 VOL% (42.0-52.0); Hemoglobin 9.8 GM/DL (14.0-18.0)
[2022-02-14 06:04] LABS: INR 2.6
[2022-02-14 06:05] LABS: PT Patient Result 26.6 SECS (10.1-12.1)
[2022-02-14] MEDS ORDERED: HEPARIN 10,000 UNIT/10 ML VIAL IV PRN (11:04)
[2022-02-14] MEDS ORDERED: WARFARIN 4 MG TABLET PO SCH (13:00)
[2022-02-14 13:08] VITALS: BP 137/85
[2022-02-14] MEDS: SEVELAMER CARBONATE 800 MG TABLET PO SCH ×2 (13:13→13:14)
[2022-02-14] MEDS: ASCORBIC ACID 500 MG TABLET PO SCH (13:14)
[2022-02-14] MEDS: TAMSULOSIN 0.4 MG CAPSULE PO SCH (13:14)
[2022-02-14] MEDS: GABAPENTIN 300 MG CAPSULE PO SCH (13:14)
[2022-02-14] MEDS: carvediloL 25 MG TABLET PO SCH (13:14)
[2022-02-14] MEDS: MULTIVITAMIN (BEROCCA) TABLET PO SCH (13:14)
[2022-02-14] MEDS: allopurinoL 100 MG TABLET PO SCH (13:14)
== END 2022-02-14 16:00 | disposition home or self-care (01) ==
LOC: SUATTDRO → N.ED 06:29 → N.SDS 09:46 → N.5E 09:46 → N.SDSINP 09:49 → N.5E 20:15 → SUATTDRO 21:12
PROVIDERS: ADMIT Internal Medicine; ATTEND Internal Medicine